=== PATIENT | female | born 1935 | race Caucasian/White ===

== ENCOUNTER → 2016-06-20 | Outpatient (CLI) | payer MEDICARE, BC ==
--- NOTE | 2016-06-20 12:54 | FL ---
EXAMINATION TYPE: FL barium swallow w video DATE OF EXAM: 06/20/2016 12:32 PM MODIFIED SWALLOW / DEGLUTITION STUDY CLINICAL HISTORY: Dysphagia. CVA per order. TECHNIQUE: Deglutition study is performed utilizing thin liquid barium, honey and nectar thick liqui d barium, barium thick applesauce, and barium coated cracker. A total of 1 minute 58 seconds of fluor oscopic time was utilized during procedure. COMPARISON: None. FINDINGS: The oral and pharyngeal phases show satisfactory initiation and propagation with all modali ties tested. Normal mastication is seen with solid modalities tested. There is single episode of shiloh ent aspiration with nectar thick liquid barium. This is not reproduced with subsequent attempts with this modality or thin liquid barium. No significant pharyngeal residue was appreciated. IMPRESSION: Single episode of silent aspiration with thin liquid barium. Please refer to speech ther apist notes for further details if necessary.
== END | disposition home or self-care (01) ==
LOC: RADFLMAIN 10:57
PROVIDERS: ATTEND Family Medicine
DX: I63.9 Cerebral infarction, unspecified (principal)
CPT/HCPCS: 74230

== ENCOUNTER → 2016-07-04 | Outpatient (CLI) | payer MEDICARE, BC ==
--- NOTE | 2016-07-04 12:07 | CT ---
EXAMINATION TYPE: CT chest wo con DATE OF EXAM: 07/04/2016 11:58 AM COMPARISON: NONE HISTORY: Wheezing, aspiration CT DLP: 113.2 mGycm High-resolution noncontrast CT of the chest was performed with the patient in the prone and supine po sitions. Lung and mediastinal window settings are submitted. The lungs appear to be well-aerated. I do not see evidence for fibrotic change. Mild basilar bronchi ectasis. Parenchymal scarring is seen adjacent to the left heart border and right lower lobe. 6.8 mm nodule right upper lobe medially seen best on image 13. Two Additional small 3 mm nodules left upper lobe also seen on image 13. No pleural effusion is identified. I do not see evidence for hilar or me diastinal mass or adenopathy. There is evidence of cardiomegaly with coronary artery calcifications. Cystic lesions of the spleen and liver. IMPRESSION: 1. Pulmonary nodularity consider follow-up study in 3-4 months. 2. 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
--- NOTE | 2016-07-07 11:14 | FL ---
Modified barium swallow. HISTORY: Dysphagia. Modified barium swallow was performed with the department of speech pathology. The patient was prese nted with various consistencies of barium. Mild transient penetration with thin liquid barium. No evidence for aspiration. Full report is to fol low from the department of speech pathology. Impression: Mild transient penetration.Please refer to speech therapist notes for further details if necessary.
== END | disposition home or self-care (01) ==
LOC: RADCTMAIN 11:35
PROVIDERS: ATTEND Internal Medicine
DX: J47.9 Bronchiectasis, uncomplicated (principal); J69.0 Pneumonitis due to inhalation of food and vomit
CPT/HCPCS: 71020; 71250; 74230; 99204

== ENCOUNTER → 2016-08-18 | Outpatient (CLI) | payer MEDICARE, BC ==
[2016-08-18 11:15] LABS: Calcium 9.7 mg/dL (8.4-10.2); Potassium 4.3 mmol/L (3.5-5.1)
== END ==
LOC: LABWHC1 10:21
PROVIDERS: ATTEND Specialist
DX: N18.3 Chronic kidney disease, stage 3 (moderate) (principal)
CPT/HCPCS: 36415; 80048

== ENCOUNTER → 2016-12-09 | Outpatient (CLI) | payer MEDICARE, BC ==
[2016-12-09 10:58] LABS: Cholesterol 128 mg/dL (<200); HDL Cholesterol 52 mg/dL (40-60); Triglycerides 93 mg/dL (<150)
== END | disposition home or self-care (01) ==
LOC: LABWHC1 09:57
PROVIDERS: ATTEND Physician Assistant Medical
DX: E78.5 Hyperlipidemia, unspecified (principal)
CPT/HCPCS: 36415; 80061

== ENCOUNTER → 2016-12-26 | Outpatient (CLI) | payer MEDICARE, BC ==
--- NOTE | 2016-12-26 14:24 | US ---
EXAMINATION TYPE: US kidneys/renal and bladder DATE OF EXAM: 12/26/2016 COMPARISON: NONE CLINICAL HISTORY: N18.3 Chronic kidney disease stage 3, GFR 30-59. EXAM MEASUREMENTS: Right Kidney: 8.5 x 4.1 x 4.5 cm Left Kidney: 8.8 x 4.9 x 4.2 cm Right Kidney: small cyst measuring 1.0 x 0.7 x 0.8 cm Left Kidney: somewhat lobular contour Bladder: wnl Bilateral Jets seen: Yes There is no evidence for hydronephrosis at this point in time. No nephrolithiasis is seen. No sonali s are identified. The urinary bladder is anechoic. Bilateral ureteral jets are seen. IMPRESSION: CYSTIC LESION IN THE RIGHT KIDNEY DOES NOT MEET THE REQUIREMENTS OF SIMPLE CYSTS. FURTHER IMAGING WIT H CT OR MR WOULD BE SUGGESTED.
== END | disposition home or self-care (01) ==
LOC: RADUSWWP 13:00
PROVIDERS: ATTEND Internal Medicine Nephrology
DX: Q61.9 Cystic kidney disease, unspecified (principal); I12.9 Hypertensive chronic kidney disease with stage 1 through stage 4 chronic kidney disease, or unspecified chronic kidney disease; N18.3 Chronic kidney disease, stage 3 (moderate)
CPT/HCPCS: 76770

== ENCOUNTER → 2017-07-04 | Outpatient (CLI) | payer MEDICARE, BC ==
[2017-07-04 10:12] LABS: Albumin 4.3 g/dL (3.5-5.0); Calcium 10.1 mg/dL (8.4-10.2); Total Bilirubin 1.2 mg/dL (0.2-1.3); Total Protein 7.2 g/dL (6.3-8.2)
[2017-07-04 10:26] LABS: Potassium 4.7 mmol/L (3.5-5.1)
== END | disposition home or self-care (01) ==
LOC: LABWHC1 09:14
PROVIDERS: ATTEND Internal Medicine Interventional Cardiology
DX: E78.2 Mixed hyperlipidemia (principal)
CPT/HCPCS: 36415; 80053; 80061

== ENCOUNTER → 2017-11-22 | Outpatient (CLI) | payer MEDICARE, BC ==
[2017-11-22 12:54] LABS: Calcium 10.4 mg/dL (8.4-10.2); Potassium 4.5 mmol/L (3.5-5.1)
[2017-11-22 14:34] LABS: Phosphorus 3.5 mg/dL (2.5-4.5)
== END | disposition home or self-care (01) ==
LOC: LABWHC1 12:06 → EDSTATUS 14:06
PROVIDERS: ATTEND Internal Medicine Nephrology
DX: E87.1 Hypo-osmolality and hyponatremia (principal); I12.9 Hypertensive chronic kidney disease with stage 1 through stage 4 chronic kidney disease, or unspecified chronic kidney disease; N18.3 Chronic kidney disease, stage 3 (moderate)
CPT/HCPCS: 36415; 80048; 84100

== ENCOUNTER → 2017-11-23 | Outpatient (CLI) | payer MEDICARE, BC ==
[2017-11-23 13:01] LABS: Basophils % (A) 1 %; Eosinophils # (A) 0.2 k/uL (0-0.7); Eosinophils % (A) 3 %; HCT 44.8 % (34.0-46.0); HGB 14.5 gm/dL (11.4-16.0); Lymphocytes # (A) 1.2 k/uL (1.0-4.8); Lymphocytes % (A) 26 %; MCH 30.4 pg (25.0-35.0); MCHC 32.5 g/dL (31.0-37.0); MCV 93.6 fL (80.0-100.0); Monocytes # (A) 0.5 k/uL (0-1.0); Monocytes % (A) 11 %; Neutrophils # (A) 2.7 k/uL (1.3-7.7); Neutrophils % (A) 57 %; Platelet Count 194 k/uL (150-450); RBC 4.79 m/uL (3.80-5.40); RDW 12.7 % (11.5-15.5); WBC 4.8 k/uL (3.8-10.6)
== END | disposition home or self-care (01) ==
LOC: LABWHC1 12:31
PROVIDERS: ATTEND Internal Medicine Nephrology
DX: E87.1 Hypo-osmolality and hyponatremia (principal); I12.9 Hypertensive chronic kidney disease with stage 1 through stage 4 chronic kidney disease, or unspecified chronic kidney disease; N18.3 Chronic kidney disease, stage 3 (moderate)
CPT/HCPCS: 36415; 83970; 85025; 85027

== ENCOUNTER 2018-03-22 19:11 | Emergency (ER) | payer MEDICARE, BC ==
[2018-03-22] MEDS ORDERED: ACETAMINOPHEN TAB 325 MG TAB PO STA (20:03)
--- NOTE | 2018-03-22 20:09 | ED ---
GI Bleed HPI - General Source: patient, family Mode of arrival: wheelchair Limitations: no limitations <Myrna Roper - Last Filed: 03/23/18 02:42> <Trisha Ambriz - Last Filed: 03/23/18 05:12> - General Chief complaint: GI Bleed Stated complaint: bloody stool, nausea Time Seen by Provider: 03/22/18 19:23 - History of Present Illness Initial comments: 89-year-old female patient presents to the emergency department today with multiple complaints. Patient states that she has been having elevated temperatures with T-max 100.2F at home over the last 2 days. Patient states that she did present to her primary care physician's office today for evaluation of the fevers and did end up having an episode of vomiting and diarrhea. Patient states his stool was mostly mucus and bright red blood. Patient does take Eliquis, the Physician Counselor Aide was concerned and sent her to the ED for further evaluation. Patient denies any cough, congestion, sore throat, or abdominal pain. States that she's been having normal bowel movements over the last couple days. States her first episode of vomiting was today. Patient states she is having some pain and discomfort to the left leg, she is unable to localize the pain due to history of stroke sided deficits. She denies any falls or injuries to the leg. Patient denies any recent rash, fever, chills, shortness breath, chest pain, abdominal pain, nausea, vomiting, diarrhea, constipation, back pain, numbness, tingling, dizziness, weakness, hematuria, dysuria, urinary urgency, urinary frequency, headache, visual changes , or any other complaints. (Myrna Roper) - Related Data Home Medications Medication Instructions Recorded Confirmed Albuterol Nebulized [Ventolin 2.5 mg INHALATION RT-Q6H PRN 05/03/16 03/22/18 Nebulized] Atorvastatin [Lipitor] 40 mg PO DAILY 05/03/16 03/22/18 Digoxin [Digitek] 125 mcg PO Q48H 05/03/16 03/22/18 Spironolactone [Aldactone] 12.5 mg PO Q48H 05/03/16 03/22/18 Apixaban [Eliquis] 2.5 mg PO BID 03/22/18 03/22/18 Carvedilol [Coreg] 3.125 mg PO BID 03/22/18 03/22/18 Ergocalciferol (Vitamin D2) 50,000 unit PO WE 03/22/18 03/22/18 [Vitamin D2] Multivit-Min/Iron/Folic/Lutein 1 tab PO DAILY 03/22/18 03/22/18 [Centrum Silver Women Tablet] Previous Rx's Medication Instructions Recorded Sulfamethoxazole/Trimethoprim 1 each PO BID #10 tablet 03/23/18 [Bactrim DS 800-160 mg] Allergies Allergy/AdvReac Type Severity Reaction Status Date / Time No Known Allergies Allergy Verified 03/22/18 20:20 Review of Systems ROS Other: All systems not noted in ROS Statement are negative. <Myrna Roper - Last Filed: 03/23/18 02:42> ROS Other: All systems not noted in ROS Statement are negative. <Trisha Ambriz - Last Filed: 03/23/18 05:12> ROS Statement: Those systems with pertinent positive or pertinent negative responses have been documented in the HPI. Past Medical History Past Medical History: Hypertension History of Any Multi-Drug Resistant Organisms: None Reported Additional Past Surgical History / Comment(s): breast augmentation Past Psychological History: No Psychological Hx Reported Smoking Status: Former smoker Past Alcohol Use History: None Reported Past Drug Use History: None Reported <Myrna Roper - Last Filed: 03/23/18 02:42> General Exam Limitations: no limitations <Myrna Roper - Last Filed: 03/23/18 02:42> Vital Signs 03/22/18 03/22/18 03/22/18 19:14 20:30 22:16 Temperature 98.4 F 99.2 F Pulse Rate 70 76 82 Respiratory 18 20 20 Rate Blood Pressure 136/67 125/75 132/56 O2 Sat by Pulse 96 100 99 Oximetry 03/22/18 23:41 Temperature 98.4 F Pulse Rate 68 Respiratory 20 Rate Blood Pressure 132/69 O2 Sat by Pulse 96 Oximetry Medical Decision Making - Lab Data Result diagrams: 03/22/18 20:20 03/22/18 20:20 - Radiology Data Radiology results: report reviewed, image reviewed <Myrna Roper - Last Filed: 03/23/18 02:42> - Lab Data Result diagrams: 03/22/18 20:20 03/22/18 20:20 <Trisha Ambriz - Last Filed: 03/23/18 05:12> - Medical Decision Making 82-year-old female patient presented to the emergency department today for evaluation of fever 2 days and one episode of bloody diarrhea. Physical examination is relatively unremarkable. Abdomen soft and nontender. Labs reviewed and did reveal mildly elevated white blood cell count at a little over 12,000. Urinalysis did show evidence for red blood cells and white blood cells. This was sent for culture. Patient's occult blood was negative for presence of blood. Patient vital signs remained stable while in the emergency department. Upon reevaluation she is feeling well, complains of no pain and leg at this time. She will be discharged with prescription for urinary tract infection. Patient has had loose stool over the last couple of days one episode she reports as bloody, alcohol was negative, this could reflect colitis. She is instructed to follow-up with the primary care physician for recheck in 1-2 days. She is instructed to return immediately for any new, worsening, or concerning symptoms patient verbalizes understanding and agrees with this plan. (Myrna Roper) I was available for consultation in the emergency department. The history and physical exam were done by the midlevel provider. I was consulted for this patient's care. I reviewed the case with the midlevel provider and based on their presentation of the patient, I agree with the assessment, medical decision making and plan of care as documented. (Trisha Ambriz) - Lab Data Lab Results 03/22/18 03/22/18 03/22/18 Range/Units 20:20 20:20 20:20 WBC 12.7 H (3.8-10.6) k/uL RBC 5.00 (3.80-5.40) m/uL Hgb 15.7 (11.4-16.0) gm/dL Hct 47.4 H (34.0-46.0) % MCV 94.8 (80.0-100.0) fL MCH 31.5 (25.0-35.0) pg MCHC 33.2 (31.0-37.0) g/dL RDW 12.7 (11.5-15.5) % Plt Count 248 (150-450) k/uL Neutrophils % 83 % Lymphocytes % 9 % Monocytes % 6 % Eosinophils % 1 % Basophils % 0 % Neutrophils # 10.5 H (1.3-7.7) k/uL Lymphocytes # 1.1 (1.0-4.8) k/uL Monocytes # 0.8 (0-1.0) k/uL Eosinophils # 0.1 (0-0.7) k/uL Basophils # 0.0 (0-0.2) k/uL PT (9.0-12.0) sec INR (<1.2) APTT (22.0-30.0) sec Sodium 138 (137-145) mmol/L Potassium 4.8 (3.5-5.1) mmol/L Chloride 100 (98-107) mmol/L Carbon Dioxide 25 (22-30) mmol/L Anion Gap 13 mmol/L BUN 28 H (7-17) mg/dL Creatinine 1.14 H (0.52-1.04) mg/dL Est GFR (CKD-EPI)AfAm 53 (>60 ml/min/1.73 sqM) Est GFR (CKD-EPI)NonAf 46 (>60 ml/min/1.73 sqM) Glucose 114 H (74-99) mg/dL Plasma Lactic Acid Oneil 1.3 (0.7-2.0) mmol/L Calcium 10.2 (8.4-10.2) mg/dL Total Bilirubin 1.7 H (0.2-1.3) mg/dL AST 34 (14-36) U/L ALT 29 (9-52) U/L Alkaline Phosphatase 75 (38-126) U/L Total Protein 7.9 (6.3-8.2) g/dL Albumin 4.5 (3.5-5.0) g/dL Urine Color Urine Appearance (Clear) Urine pH (5.0-8.0) Ur Specific [place] (1.001-1.035) Urine Protein (Negative) Urine Glucose (UA) (Negative) Urine Ketones (Negative) Urine Blood (Negative) Urine Nitrite (Negative) Urine Bilirubin (Negative) Urine Urobilinogen (<2.0) mg/dL Ur Leukocyte Esterase (Negative) Urine RBC (0-5) /hpf Urine WBC (0-5) /hpf Ur Squamous Epith Cells (0-4) /hpf Urine Bacteria (None) /hpf Hyaline Casts (0-2) /lpf Urine Mucus (None) /hpf Stool Occult Blood (Negative) 03/22/18 03/22/18 03/22/18 Range/Units 20:20 20:25 22:16 WBC (3.8-10.6) k/uL RBC (3.80-5.40) m/uL Hgb (11.4-16.0) gm/dL Hct (34.0-46.0) % MCV (80.0-100.0) fL MCH (25.0-35.0) pg MCHC (31.0-37.0) g/dL RDW (11.5-15.5) % Plt Count (150-450) k/uL Neutrophils % % Lymphocytes % % Monocytes % % Eosinophils % % Basophils % % Neutrophils # (1.3-7.7) k/uL Lymphocytes # (1.0-4.8) k/uL Monocytes # (0-1.0) k/uL Eosinophils # (0-0.7) k/uL Basophils # (0-0.2) k/uL PT 10.7 (9.0-12.0) sec INR 1.1 (<1.2) APTT 23.5 (22.0-30.0) sec Sodium (137-145) mmol/L Potassium (3.5-5.1) mmol/L Chloride (98-107) mmol/L Carbon Dioxide (22-30) mmol/L Anion Gap mmol/L BUN (7-17) mg/dL Creatinine (0.52-1.04) mg/dL Est GFR (CKD-EPI)AfAm (>60 ml/min/1.73 sqM) Est GFR (CKD-EPI)NonAf (>60 ml/min/1.73 sqM) Glucose (74-99) mg/dL Plasma Lactic Acid Oneil (0.7-2.0) mmol/L Calcium (8.4-10.2) mg/dL Total Bilirubin (0.2-1.3) mg/dL AST (14-36) U/L ALT (9-52) U/L Alkaline Phosphatase (38-126) U/L Total Protein (6.3-8.2) g/dL Albumin (3.5-5.0) g/dL Urine Color Yellow Urine Appearance Clear (Clear) Urine pH 5.5 (5.0-8.0) Ur Specific [place] 1.020 (1.001-1.035) Urine Protein Trace H (Negative) Urine Glucose (UA) Negative (Negative) Urine Ketones Negative (Negative) Urine Blood Moderate H (Negative) Urine Nitrite Negative (Negative) Urine Bilirubin Negative (Negative) Urine Urobilinogen <2.0 (<2.0) mg/dL Ur Leukocyte Esterase Large H (Negative) Urine RBC 22 H (0-5) /hpf Urine WBC 26 H (0-5) /hpf Ur Squamous Epith Cells 2 (0-4) /hpf Urine Bacteria Rare H (None) /hpf Hyaline Casts 4 H (0-2) /lpf Urine Mucus Occasional H (None) /hpf Stool Occult Blood Negative (Negative) - Radiology Data Two-view x-ray of the chest is obtained. Heart media's enema normal for age. Lungs are clear of infiltrate. There is no pleural effusion. Thoracic aorta shows mild atheromatous change. There are chest leads. Bony thorax is intact. Impression by Dr. Forde shows no active cardiopulmonary disease. Normal heart. No change. (Myrna Roper) Disposition Is patient prescribed a controlled substance at d/c from ED?: No Time of Disposition: 00:14 <Myrna Roper - Last Filed: 03/23/18 02:42> <Trisha Ambriz - Last Filed: 03/23/18 05:12> Clinical Impression: Urinary tract infection, Colitis Disposition: HOME SELF-CARE Condition: Good Instructions: Gastrointestinal Bleeding (ED), Urinary Tract Infection in Older Adults (ED) Additional Instructions: Complete antibiotic prescription and full. Follow-up with your primary care physician for recheck in 1-2 days. Return here immediately for any new, worsening, or concerning symptoms. Prescriptions: Sulfamethoxazole/Trimethoprim [Bactrim DS 800-160 mg] 1 each PO BID #10 tablet Referrals: Sarah Garcia III, MD [Primary Care Provider] - 1-2 days Addendum entered and electronically signed by Myrna Roper, RESOURCE PROGRAM TEACHER-BC, AGACNP -BC 03/23/18 04:09: EKG DOCUMENTATION: EKG obtained at 2038 shows atrial fibrillation with a ventricular rate of 75, QRS duration 74, QT 370, QTC 413. No evidence of ST elevation or Depression.
[2018-03-22] MEDS: SODIUM CHLORIDE 0.9% 500 ML 500 ML IV SCH ×2 (20:25→20:26)
[2018-03-22 20:34] VITALS: RESP 20
[2018-03-22 20:39] LABS: Basophils % (A) 0 %; Eosinophils # (A) 0.1 k/uL (0-0.7); Eosinophils % (A) 1 %; HCT 47.4 % (34.0-46.0); HGB 15.7 gm/dL (11.4-16.0); Lymphocytes # (A) 1.1 k/uL (1.0-4.8); Lymphocytes % (A) 9 %; MCH 31.5 pg (25.0-35.0); MCHC 33.2 g/dL (31.0-37.0); MCV 94.8 fL (80.0-100.0); Mean Platelet Volume 7.3; Monocytes # (A) 0.8 k/uL (0-1.0); Monocytes % (A) 6 %; Neutrophils # (A) 10.5 k/uL (1.3-7.7); Neutrophils % (A) 83 %; Platelet Count 248 k/uL (150-450); RDW 12.7 % (11.5-15.5); WBC 12.7 k/uL (3.8-10.6)
[2018-03-22 20:51] LABS: Albumin 4.5 g/dL (3.5-5.0); Calcium 10.2 mg/dL (8.4-10.2); Potassium 4.8 mmol/L (3.5-5.1); Total Bilirubin 1.7 mg/dL (0.2-1.3); Total Protein 7.9 g/dL (6.3-8.2)
--- NOTE | 2018-03-22 21:12 | XR ---
EXAMINATION TYPE: XR chest 2V DATE OF EXAM: 03/22/2018 COMPARISON: 07/04/2016 HISTORY: Fever and nausea TECHNIQUE: Frontal and lateral views of the chest are obtained. FINDINGS: The heart and mediastinum are normal for age. Lungs are clear of infiltrate. There is no p leural effusion. Thoracic aorta shows mild atheromatous change. There are chest leads. Bony thorax is intact. IMPRESSION: No active cardiopulmonary disease. Normal heart. No change.
[2018-03-22 21:14] LABS: INR 1.1 (<1.2); Partial Thromboplastin Time 23.5 sec (22.0-30.0); Prothrombin Time 10.7 sec (9.0-12.0)
[2018-03-22] MEDS ORDERED: APIXABAN 5 MG TAB PO STA (23:12)
[2018-03-22 23:14] LABS: Appearance,Urine Clear (Clear); Bacteria,Urine Rare /hpf; Bilirubin,Urine Negative (Negative); Blood,Urine Moderate (Negative); Color,Urine Yellow; Glucose,Urine (UA) Negative (Negative); Hyaline Casts,Urine 4 /lpf (0-2); Ketones,Urine Negative (Negative); Leukocyte Esterase,Urine Large (Negative); Mucus,Urine Occasional /hpf; Nitrite,Urine Negative (Negative); PH, Urine 5.5 (5.0-8.0); Protein,Urine Trace (Negative); RBC,Urine 22 /hpf (0-5); Squamous Epithelial Cell,Urine 2 /hpf (0-4); Urobilinogen,Urine <2.0 mg/dL (<2.0); WBC,Urine 26 /hpf (0-5)
[2018-03-22 23:42] VITALS: BP 132/69; PULSE 68; TEMP 98.4
[2018-03-23] MEDS ORDERED: SULFAMETH-TMP DS STARTER PACK 2 TAB BTL PO STA (00:12)
== END 2018-03-23 00:30 | disposition home or self-care (01) ==
LOC: EC 19:11
DX: K52.9 Noninfective gastroenteritis and colitis, unspecified (principal); N39.0 Urinary tract infection, site not specified; I10 Essential (primary) hypertension; Z79.01 Long term (current) use of anticoagulants; Z79.02 Long term (current) use of antithrombotics/antiplatelets; Z79.899 Other long term (current) drug therapy; Z87.891 Personal history of nicotine dependence
CPT/HCPCS: 36415; 71046; 80053; 81001; 82272; 83605; 85025; 85610; 85730; 87040; 87086; 93005; 96360; 99285

== ENCOUNTER → 2018-06-21 | Outpatient (CLI) | payer MEDICARE, BC ==
[2018-06-21 11:11] LABS: Basophils # (A) 0.1 k/uL (0-0.2); Basophils % (A) 1 %; Eosinophils # (A) 0.3 k/uL (0-0.7); Eosinophils % (A) 4 %; HCT 48.5 % (34.0-46.0); HGB 15.3 gm/dL (11.4-16.0); Lymphocytes # (A) 1.4 k/uL (1.0-4.8); Lymphocytes % (A) 22 %; MCH 30.5 pg (25.0-35.0); MCHC 31.5 g/dL (31.0-37.0); MCV 96.8 fL (80.0-100.0); Mean Platelet Volume 6.1; Monocytes # (A) 0.5 k/uL (0-1.0); Monocytes % (A) 8 %; Neutrophils # (A) 3.8 k/uL (1.3-7.7); Neutrophils % (A) 62 %; Platelet Count 254 k/uL (150-450); RBC 5.01 m/uL (3.80-5.40); RDW 12.6 % (11.5-15.5); WBC 6.1 k/uL (3.8-10.6)
[2018-06-21 17:49] LABS: Albumin 4.5 g/dL (3.80-4.90); Albumin/Globulin Ratio 1.88 (1.20-2.10); Anion Gap 10.2 mmol/L (4.00-12.00); Carbon Dioxide 29.8 mmol/L (21.6-31.8); Globulin 2.4 g/dL (1.6-3.3); Total Protein 6.9 g/dL (6.2-8.2)
== END | disposition home or self-care (01) ==
LOC: LABWHC1 10:30
PROVIDERS: ATTEND Internal Medicine Interventional Cardiology
DX: Z00.01 Encounter for general adult medical examination with abnormal findings (principal); E78.2 Mixed hyperlipidemia; I69.354 Hemiplegia and hemiparesis following cerebral infarction affecting left non-dominant side; I10 Essential (primary) hypertension; D72.829 Elevated white blood cell count, unspecified; I48.91 Unspecified atrial fibrillation
CPT/HCPCS: 36415; 80053; 80061; 84443; 85025

== ENCOUNTER → 2019-01-08 | Outpatient (CLI) | payer MEDICARE, BC ==
[2019-01-08 19:43] LABS: LDL Cholesterol,Calculated 57.2 mg/dL (0.0-131.0); VLDL Calculation 21.8 mg/dL (5.00-40.00)
[2019-01-08 19:44] LABS: African American GFR (CKD) 49.1 (60.0-200.0); Albumin 4.4 g/dL (3.80-4.90); Anion Gap 8.1 mmol/L (4.00-12.00); BUN/Creat Ratio 21.67 Ratio (12.00-20.00); Calcium 10.5 mg/dL (8.7-10.3); Carbon Dioxide 30.9 mmol/L (21.6-31.8); Globulin 2.2 g/dL (1.6-3.3); Potassium 5.2 mmol/L (3.5-5.5); Total Bilirubin 1.1 mg/dL (0.2-1.2); Total Protein 6.6 g/dL (6.2-8.2)
== END | disposition home or self-care (01) ==
LOC: LABWHC1 11:53
PROVIDERS: ATTEND Internal Medicine Interventional Cardiology
DX: E78.2 Mixed hyperlipidemia (principal)
CPT/HCPCS: 36415; 80053; 80061

== ENCOUNTER → 2019-01-21 | Outpatient (CLI) | payer MEDICARE, BC ==
--- NOTE | 2019-01-22 08:18 | USB ---
Reason for exam: clinical finding. History: Patient history of other cancer. Family history of breast cancer in daughter at age 58, breast cancer in daughter at age 47, and breast cancer in sister at age 40. Implants in both breasts. Indicated problem(s): lump or thickening in the left breast. Physical Findings: Nurse Summary: 2cm firm, fixed lump left breast 11 o'clock, left sided paralysis, history of stroke 2 years ago (nurse mj). US Breast BILAT Right complete breast ultrasound includes all four quadrants, the retroareolar region and axilla. Finding demonstrates no cystic or solid lesion seen. Left complete breast ultrasound includes all four quadrants, the retroareolar region and axilla. Finding demonstrates a 6 x 2 x 4mm oval, cystic, benign appearing lesion at 8 o'clock and a 24 x 11 x 22mm irregular, spiculated, solid, hypoechoic, vascular lesion at 10 o'clock BB. No axillary CAD. Patient declines mammogram. Left biopsy recommended. These results were verbally communicated with the patient and result sheet given to the patient on 01/21/19. ASSESSMENT: Highly suggestive of malignancy, BI-RAD 5 RECOMMENDATION: Surgical consultation and ultrasound core biopsy of the left breast. Called Dr. Garcia with mammographic findings and has scheduled an appointment for the patient for 02/13/19 at 1:[address] Estrada. Biopsy scheduled for 02/08/19 at 8:00. PRELIMINARY REPORT CALLED AND FAXED TO DR. ESTRADA ON 01/22/19.
== END | disposition home or self-care (01) ==
LOC: RADUSWWP 14:25
PROVIDERS: ATTEND Family Medicine
DX: N63.0 Unspecified lump in unspecified breast (principal); Z80.3 Family history of malignant neoplasm of breast

== ENCOUNTER → 2019-02-08 | Day surgery (SDC) | payer MEDICARE, BC ==
[2019-02-08 07:39] VITALS: RESP 16; BMI 26.2
--- NOTE | 2019-02-08 09:08 | USB ---
EXAMINATION TYPE: US biopsy breast VAD LT, MG diagnostic mammo LT wo CAD DATE OF EXAM: 02/08/2019 CLINICAL HISTORY: R92.8 ABN JASPREET. TECHNIQUE: Ultrasound guided core biopsy of left breast. COMPARISON: Bilateral ultrasound of the breasts dated 01/21/2019 FINDINGS: The procedure of ultrasound guided core biopsy was explained to the patient. Benefits, alternatives, and risks were discussed. An informed consent was then obtained. Preprocedural timeout was performed. The patient was counseled with recurrence to increased risk of involvement of the hematoma given their recent blood thinner use, although the patient did stop per protocol. The patient was placed in supine positioning for imaging and for the procedure. The overlying skin was prepped and draped in usual sterile fashion. 10 cc of 1% lidocaine without epinephrine was used as anesthetic into the skin and subcutaneous tissue as well as 10 cc of lidocaine with epinephrine within the deep subcutaneous soft tissues leading up to the 2.4 x 1.1 x 2.2 cm palpable, irregular, hypoechoic highly suspicious mass with shadowing and internal vascularity at the 10:00 position in the left breast noted on the screening exam and demarcated at the 9:00 position on today's exam. Under ultrasound guidance, a 12-gauge vacuum assisted biopsy gun device was used to obtain 6 core samples. Following this, a ribbon-shaped biopsy marker was left in the mass. Postprocedural mammogram in CC view, implant displaced, was only able to be obtained given the patient's left-sided paresis/weakness. The patient tolerated the procedure well without any immediate complication. The patient was kept in the radiology department for short stay after the procedure and then discharged home in stable condition. IMPRESSION: Successful, uncomplicated ultrasound guided core biopsy of a highly suspicious 2.4 cm mass at the 9 to 10:00 position in the left breast, full pathology results to follow. This would be amenable to ultrasound-guided needle localization pending biopsy results as the patient is unable to be positioned well for nanograms. Pathology Results: Malignant LEFT BREAST, ULTRASOUND GUIDED CORE BIOPSY: Invasive ductal carcinoma, at least moderately differentiated. Limited sample. See Surgical Pathology Cancer Case Summary and Comment. Recommendation Surgical consult of the left breast. (Definitive surgical/medical management, this is amenable to ultrasound guided needle localization) [id number]
[2019-02-08 09:17] VITALS: BP 150/91; PULSE 61; TEMP 98.1
== END | disposition home or self-care (01) ==
LOC: RADUSWWP 07:02
PROVIDERS: ATTEND Student in an Organized Health Care Education/Training Program
DX: C50.912 Malignant neoplasm of unspecified site of left female breast (principal)
CPT/HCPCS: 88305; 88342; 88341; 77065; 19083; A4648; J2001

== ENCOUNTER → 2019-02-19 | Outpatient (CLI) | payer MEDICARE, BC ==
--- NOTE | 2019-02-20 07:59 | MM ---
Reason for exam: additional evaluation requested from abnormal screening. Last mammogram was performed less than 1 month ago. History: Patient is postmenopausal, has history of breast cancer at age 83, and history of other cancer. Family history of breast cancer in daughter at age 58, breast cancer in daughter at age 47, and breast cancer in sister at age 40. Malignant US biopsy breast VAD LT of the left breast, February 08, 2019. Implants in both breasts. Physical Findings: Nurse Summary: 1.5-2cm nodule in the left breast at 10 o'clock (nurse TM). MG 3D Diag Mammo Imp W/Cad RENATO Bilateral CC, MLO, and ID view(s) were taken. Prior study comparison: February 08, 2019, left breast MG diagnostic mammo LT wo CAD. January 21, 2019, bilateral US breast BILAT. The breast tissue is heterogeneously dense. This may lower the sensitivity of mammography. Finding: There are fine pleomorphic, grouped/clustered calcifications in the posterior position of both breasts. Bilateral breast implants. Suboptimal due to underlying stroke. These results were verbally communicated with the patient and result sheet given to the patient on 02/19/19. ASSESSMENT: Known biopsy proven malignancy, BI-RAD 6 Benign, BI-RAD 2 finding in the right breast. Known biopsy proven malignancy, BI-RAD 6 of the left breast. RECOMMENDATION: Surgical consultation of the left breast. Called with mammographic findings and has scheduled an appointment for the patient for 02/28/[address] Estrada. Lumpectomy already set up with Dr. Estrada. PRELIMINARY REPORT CALLED AND FAXED TO DR. ESTRADA ON 02/20/19.
== END | disposition home or self-care (01) ==
LOC: RADMAMWWP 14:44
PROVIDERS: ATTEND Student in an Organized Health Care Education/Training Program
DX: Z08 Encounter for follow-up examination after completed treatment for malignant neoplasm (principal); Z85.3 Personal history of malignant neoplasm of breast
CPT/HCPCS: 77066; G0279; 77062

== ENCOUNTER → 2020-03-25 | Outpatient (CLI) | payer MEDICARE, BC ==
--- NOTE | 2020-03-30 14:52 | MM ---
Reason for exam: additional evaluation requested from prior study. Last mammogram was performed 1 year and 1 month ago. History: Patient is postmenopausal, has history of breast cancer at age 83, and history of other cancer. Family history of breast cancer in daughter at age 58, breast cancer in daughter at age 47, and breast cancer in sister at age 40. Malignant US biopsy breast VAD LT of the left breast, February 08, 2019. Implants in both breasts, 1979. Lumpectomy of the left breast. Physical Findings: Nurse did not find any significant physical abnormalities on exam. MG 3D Diag Mammo Imp W/Cad RENATO Bilateral CC, MLO, and ID view(s) were taken. Prior study comparison: February 19, 2019, bilateral MG 3d diag mammo imp w/cad RENATO. February 08, 2019, left breast MG diagnostic mammo LT wo CAD. The breast tissue is heterogeneously dense. This may lower the sensitivity of mammography. Bilateral implants. Benign appearing bilateral vascular calcifications. These results were verbally communicated with the patient and result sheet given to the patient on 03/25/20. ASSESSMENT: Benign, BI-RAD 2 RECOMMENDATION: Follow-up diagnostic mammogram of both breasts in 1 year.
== END | disposition home or self-care (01) ==
LOC: RADMAMWWP 13:48
PROVIDERS: ATTEND Student in an Organized Health Care Education/Training Program
DX: C50.912 Malignant neoplasm of unspecified site of left female breast (principal)
CPT/HCPCS: 77066; G0279; 77062

== ENCOUNTER → 2021-04-06 | Outpatient (CLI) | payer MEDICARE, BC ==
--- NOTE | 2021-04-06 14:11 | XR ---
EXAMINATION TYPE: XR chest 2V DATE OF EXAM: 04/06/2021 COMPARISON: X-ray 03/22/2018, CT chest 07/04/2016 HISTORY: C50.212 TECHNIQUE: Frontal and lateral views of the chest are obtained. FINDINGS: There is no pleural effusion or pneumothorax seen. Abnormal attenuation is present within the lingula. The cardiac silhouette size is within normal limits. Breast prostheses noted bilateral ly The osseous structures are intact. IMPRESSION: Findings within the lingula may be related to prominent epicardial fat pad, difficult to exclude atelectasis versus pneumonia, follow up recommended
--- NOTE | 2021-04-06 14:38 | MM ---
Reason for exam: additional evaluation requested from prior study. Last mammogram was performed 1 year ago. History: Patient is postmenopausal, has history of breast cancer at age 83, and history of other cancer. Family history of breast cancer in daughter at age 58, breast cancer in daughter at age 47, and breast cancer in sister at age 40. Malignant US biopsy breast VAD LT of the left breast, February 08, 2019. Implants in both breasts, 1979. Lumpectomy of the left breast. Took hormonal contraceptives for 6 months. Physical Findings: Nurse did not find any significant physical abnormalities on exam. MG 3D Diag Mammo Imp W/Cad RENATO Bilateral CC and MLO view(s) were taken. Prior study comparison: March 25, 2020, bilateral MG 3d diag mammo imp w/cad RENATO. February 19, 2019, bilateral MG 3d diag mammo imp w/cad RENATO. February 08, 2019, left breast MG diagnostic mammo LT wo CAD. There are scattered fibroglandular densities. Finding: There are typically benign round, grouped/clustered calcifications. Asymmetric breast tissue greater in the right breast. These results were verbally communicated with the patient and result sheet given to the patient on 04/06/21. ASSESSMENT: Probably benign, BI-RAD 3 RECOMMENDATION: Follow-up diagnostic mammogram of the left breast in 6 months.
--- NOTE | 2021-04-07 13:08 | BD ---
EXAMINATION TYPE: Axial Bone Density DATE OF EXAM: 04/06/2021 COMPARISON: NONE CLINICAL HISTORY: Height: 63.5 IN Weight: 164 LBS RISK FACTORS HISTORY OF: Active: LIMITED Diet low in dairy products/other sources of calcium: YES Postmenopausal woman: AGE 47 Lost more than 2 inches in height since high school: YES 3.5" MEDICATIONS: Additional Medications: CALCIUM, VIT D, ELIQUIS, CARVEDILOL, ATORVASTATIN, SPIROLACTONE, DIGOXIN, Additional History: BREAST CANCER EXAM MEASUREMENTS: Bone mineral densitometry was performed using the [employer] System. Bone mineral density as measured about the Lumbar spine is: ----- L1-L4(G/cm2): 1.326 T Score Values are as follows: ----- L2: 0.4 ----- L3: 2.5 ----- L4: 1.5 ----- L1-L4: 1.2 Bone mineral density BASELINE Bone mineral density about the R hip (g/cm2): 0.842 Bone mineral density about the L hip (g/cm2): 0.689 T Score values are as follows: -----R Neck: -1.4 -----L Neck: -2.5 -----R Total: -1.3 -----L Total: -1.7 Bone mineral density BASELINE IMPRESSION: Osteopenia (T Score between -2.5 and -1). There is slightly increased risk of fracture and the patient may be considered for treatment. Re-Screen 2-5 years. NOTE: T-SCORE=SD OF THE YOUNG ADULT MEAN.
== END | disposition home or self-care (01) ==
LOC: RADBDWWP 11:41
PROVIDERS: ATTEND Internal Medicine Medical Oncology
DX: R92.1 Mammographic calcification found on diagnostic imaging of breast (principal); Z85.3 Personal history of malignant neoplasm of breast; M85.89 Other specified disorders of bone density and structure, multiple sites; Z78.0 Asymptomatic menopausal state
CPT/HCPCS: 71046; 77080; 77066; G0279; 77062

== ENCOUNTER → 2021-09-20 | Outpatient (CLI) | payer MEDICARE, BC ==
[2021-09-20 18:11] LABS: ALT 22 U/L (8-44); AST 27 U/L (13-35); African American GFR (CKD) 61.1 (60.0-200.0); Albumin 4.4 g/dL (3.8-4.9); Albumin/Globulin Ratio 1.65 (1.60-3.17); Alkaline Phosphatase 95 U/L (41-126); BUN/Creat Ratio 10.06 Ratio (12.00-20.00); Blood Urea Nitrogen 9.9 mg/dL (9.0-27.0); Calcium 10.2 mg/dL (8.7-10.3); Chloride 101 mmol/L (96-109); Chol/HDL Ratio 2.45 Ratio; Globulin 2.7 g/dL (1.6-3.3); Glucose 93 mg/dL (70-110); Non-African American GFR(CKD) 52.7 (60.0-200.0); Potassium 5.5 mmol/L (3.5-5.5); Sodium 138 mmol/L (135-145); VLDL Calculation 16.84 mg/dL (5.00-40.00)
== END | disposition home or self-care (01) ==
LOC: LABWHC1 10:48
PROVIDERS: ATTEND Internal Medicine Interventional Cardiology
DX: E78.2 Mixed hyperlipidemia (principal)
CPT/HCPCS: 36415; 80053; 80061

== ENCOUNTER → 2021-10-11 | Outpatient (CLI) | payer MEDICARE, BC ==
--- NOTE | 2021-10-11 13:33 | MM ---
Reason for exam: additional evaluation requested from prior study. Last mammogram was performed 6 months ago. History: Patient is postmenopausal, has history of other cancer at age 86, and has history of breast cancer at age 83. Family history of breast cancer in daughter at age 58, breast cancer in daughter at age 47, and breast cancer in sister at age 40. Malignant US biopsy breast VAD LT of the left breast, February 08, 2019. Implants in both breasts, 1979. Lumpectomy of the left breast. Took hormonal contraceptives for 6 months. Physical Findings: A clinical breast exam by your physician is recommended on an annual basis and results should be correlated with mammographic findings. MG 3D Diag Mammo Imp W/Cad LT CC and MLO view(s) were taken of the left breast. Prior study comparison: April 06, 2021, bilateral MG 3d diag mammo imp w/cad RENATO. March 25, 2020, bilateral MG 3d diag mammo imp w/cad RENATO. February 19, 2019, bilateral MG 3d diag mammo imp w/cad RENATO. There are scattered fibroglandular densities. Suboptimal study due to previous stroke on the left side. There are benign appearing vascular calcifications in the left breast. There is stable grouped punctate calcifications in the lower inner quadrant. Left subglandular implant redemonstrated. Results were given to the patient verbally at the time of the exam. ASSESSMENT: Benign, BI-RAD 2 RECOMMENDATION: Routine screening mammogram of both breasts in 6 months.
== END | disposition home or self-care (01) ==
LOC: RADMAMWWP 12:30
PROVIDERS: ATTEND Internal Medicine Medical Oncology
DX: R92.1 Mammographic calcification found on diagnostic imaging of breast (principal); Z78.0 Asymptomatic menopausal state; Z85.3 Personal history of malignant neoplasm of breast; Z80.3 Family history of malignant neoplasm of breast
CPT/HCPCS: 77065; G0279; 77061

== ENCOUNTER → 2021-10-11 | Outpatient (CLI) | payer MEDICARE, BC ==
--- NOTE | 2021-10-11 12:47 | XR ---
EXAMINATION TYPE: XR chest 2V DATE OF EXAM: 10/11/2021 COMPARISON: 04/06/2021 TECHNIQUE: PA and lateral views submitted. HISTORY: History of malignancy FINDINGS: Heart is enlarged and there is atherosclerotic change aorta with left lower lobe consolidation. Biapi polo pleural thickening. No interstitial edema or pneumothorax. Hypertrophic changes of the spine. IMPRESSION: 1. Cardiomegaly with left lower lobe consolidation similar to the prior exam.
== END | disposition home or self-care (01) ==
LOC: RADXRMAIN 12:04
PROVIDERS: ATTEND Internal Medicine Medical Oncology
DX: I51.7 Cardiomegaly (principal); Z85.9 Personal history of malignant neoplasm, unspecified
CPT/HCPCS: 71046

== ENCOUNTER → 2021-12-15 | Outpatient (CLI) | payer MEDICARE, BC | END | disposition home or self-care (01) | LOC: LABWHC1 10:37 | PROVIDERS: ATTEND Physician Assistant | DX: C50.212 Malignant neoplasm of upper-inner quadrant of left female breast (principal) | CPT/HCPCS: 36415; 82310; 83970 ==

== ENCOUNTER → 2022-04-19 | Outpatient (CLI) | payer MEDICARE, BC ==
--- NOTE | 2022-04-19 11:55 | MM ---
Reason for Exam: Follow-up at short interval from prior study. Last screening mammogram was performed 12 month(s) ago. Patient History: Menarche at age 18. First Full-Term at age 24. Postmenopausal. Other cancer, age 86. Breast cancer, age 83. Hormonal Contraceptives for 6 months. Lumpectomy on the Left side. 02/08/2019, Malignant Core Biopsy on the left side. 1980, Bilateral Implants. Sister had breast cancer, age 40. Daughter had breast cancer, age 58. Daughter had breast cancer, age 47. Tissue Density: There are scattered fibroglandular densities. Findings: Suboptimal study due to previous stroke in the left side. Benign-appearing vesicles occasional left breast. Stable grouped punctate calcifications in the lower inner quadrant. Bilateral breast implants. No new suspicious masses within either breast. Overall Assessment: Benign, BI-RAD 2 Management: Screening Mammogram of both breasts in 1 year. A clinical breast exam by your physician is recommended on an annual basis and results should be correlated with mammographic findings. This exam should not preclude additional follow-up of suspicious palpable abnormalities. Results were given to the patient verbally at the time of exam. Electronically signed and approved by: Carlitos Kyle D.O.
== END | disposition home or self-care (01) ==
LOC: RADMAMWWP 11:06
PROVIDERS: ATTEND Internal Medicine Medical Oncology
DX: C50.212 Malignant neoplasm of upper-inner quadrant of left female breast (principal); Z78.0 Asymptomatic menopausal state; Z80.3 Family history of malignant neoplasm of breast
CPT/HCPCS: 77066; G0279; 77062

== ENCOUNTER → 2023-04-06 | Outpatient (CLI) | payer MEDICARE, BC ==
--- NOTE | 2023-04-06 13:55 | MM ---
Reason for Exam: Clinical finding. Last screening mammogram was performed 12 month(s) ago. Patient History: Menarche at age 18. First Full-Term at age 24. Postmenopausal. Other cancer, age 86. Breast cancer, age 83. Hormonal Contraceptives for 6 months. Lumpectomy on the Left side. 02/08/2019, Malignant Core Biopsy on the left side. 1980, Bilateral Implants. Sister had breast cancer, age 40. Daughter had breast cancer, age 58. Daughter had breast cancer, age 47. Prior Study Comparison: 02/08/2019 Left Diagnostic Mammogram, [facility]. 02/19/2019 Bilateral Diagnostic Mammogram, [facility]. 03/25/2020 Bilateral Diagnostic Mammogram, [facility]. 04/06/2021 Bilateral Diagnostic Mammogram, [facility]. 10/11/2021 Left Diagnostic Mammogram, [facility]. 04/19/2022 Bilateral MG 3D diag mammo imp w/cad RENATO, [facility]. Tissue Density: There are scattered fibroglandular densities. Findings: Stable left breast calcifications and probable peripherally calcified cyst. Breast implants appear intact. No new suspicious masses, calcifications or distortions. Overall Assessment: Benign, BI-RAD 2 Management: Screening Mammogram of both breasts in 1 year. Results were given to the patient verbally at the time of exam. Patient should continue monthly self-breast exams. A clinical breast exam by your physician is recommended on an annual basis. This exam should not preclude additional follow-up of suspicious palpable abnormalities. Note on Josephine scores and lifetime risk: 1. A Josephine score greater than 3% is considered moderate risk. If this is the case, consider specialist referral to assess eligibility for a risk reducing agent. 2. If overall lifetime risk for the development of breast cancer is 20% or higher, the patient may qualify for future screening with alternating mammogram and breast MRI. Electronically signed and approved by: Clay Giron DO
== END | disposition home or self-care (01) ==
LOC: RADMAMWWP 13:02
PROVIDERS: ATTEND Internal Medicine Medical Oncology
DX: C50.212 Malignant neoplasm of upper-inner quadrant of left female breast (principal); R92.323 Mammographic fibroglandular density, bilateral breasts; Z78.0 Asymptomatic menopausal state; Z80.3 Family history of malignant neoplasm of breast
CPT/HCPCS: 77066; G0279; 77062

== ENCOUNTER → 2023-05-05 | Outpatient (CLI) | payer MEDICARE, BC ==
--- NOTE | 2023-05-08 12:24 | BD ---
EXAMINATION TYPE: Axial Bone Density DATE OF EXAM: 05/05/2023 CLINICAL HISTORY: 88 years old Female. ICD-10 CODE: BR CA C50.212 Height: 63 Weight: 157 FRAX RISK QUESTIONS: Secondary Osteoporosis: yes 3. Menopause before 45: yes RISK FACTORS HISTORY OF: Family History of Osteoporosis: no Active: no Diet low in dairy products/other sources of calcium: no Postmenopausal woman: yes Lost more than 2 inches in height since high school: yes,68 Frequent falls: no MEDICATIONS: Additional Medications: yes heart meds Additional History: yes breast cancer 2019 EXAM MEASUREMENTS: Bone mineral densitometry was performed using the [employer] System. Bone mineral density as measured about the Lumbar spine is: ----- L1-L4(G/cm2): 1.284 T Score Values are as follows: ----- L1: 0.0 ----- L2: 0.0 ----- L3: 2.1 ----- L4: 1.0 ----- L1-L4: 0.9 Z Score Values are as follows: ----- L1: 1.7 ----- L2: 1.7 ----- L3: 3.8 ----- L4: 2.7 ----- L1-L4: 2.6 Bone mineral density has: Decreased -3.2% since study of: 04.06.2021 Bone mineral density about the R hip (g/cm2): 0.853 Bone mineral density about the L hip (g/cm2): 0.923 T Score values are as follows: -----R Neck: -1.3 -----L Neck: -0.9 -----R Total: -1.2 -----L Total: -0.7 Z Score values are as follows: -----R Neck: 1.0 -----L Neck: 1.4 -----R Total: 1.0 -----L Total: 1.5 Bone mineral density has: Increased 8.0% since study of: 04.06.2021 FRAX%s: The graph provided illustrates a 12.2% chance for a major osteoporotic fx and a 3.2% chance f or the hips probability for fx in 10 years time. IMPRESSION: Osteopenia (T Score between -2.5 and -1). There is slightly increased risk of fracture and the patient may be considered for treatment. Re-Screen 2-5 years. NOTE: T-SCORE=SD OF THE YOUNG ADULT MEAN.
== END | disposition home or self-care (01) ==
LOC: RADBDWWP 14:53
PROVIDERS: ATTEND Internal Medicine Medical Oncology
DX: C50.212 Malignant neoplasm of upper-inner quadrant of left female breast (principal); M85.851 Other specified disorders of bone density and structure, right thigh; Z78.0 Asymptomatic menopausal state
CPT/HCPCS: 77080

== ENCOUNTER → 2023-06-29 | Outpatient (CLI) | payer MEDICARE, BC ==
--- NOTE | 2023-06-29 12:43 | XR ---
EXAMINATION TYPE: XR chest 2V DATE OF EXAM: 06/29/2023 12:33 PM CLINICAL INDICATION:Female, 88 years old with history of R05.9 COUGH; COMPARISON: Chest radiographs from 10/11/2021 TECHNIQUE: XR chest 2V Frontal and lateral views of the chest. FINDINGS: Lungs/Pleura: There is no evidence of pleural effusion, focal consolidation, or pneumothorax. Pulmonary vascularity: Unremarkable. Heart/mediastinum: Cardiomediastinal silhouette is unremarkable. Musculoskeletal: No acute osseous pathology. Other findings: Bilateral breast implants. IMPRESSION: No acute cardiopulmonary disease/process.
== END | disposition home or self-care (01) ==
LOC: RADXRMAIN 12:07
PROVIDERS: ATTEND Nurse Practitioner Family
DX: J45.20 Mild intermittent asthma, uncomplicated (principal); R05.9 Cough, unspecified; R09.81 Nasal congestion; Z98.82 Breast implant status
CPT/HCPCS: 71046

== ENCOUNTER 2023-09-26 08:38 | Inpatient (IN) | payer MEDICARE, BC ==
[2023-09-26 09:21] LABS: Basophils % (A) 0 %; Eosinophils % (A) 0 %; HCT 45.9 % (34.0-46.0); HGB 14.9 gm/dL (11.4-16.0); Lymphocytes # (A) 0.6 k/uL (1.0-4.8); Lymphocytes % (A) 7 %; MCHC 32.4 g/dL (31.0-37.0); MCV 98.6 fL (80.0-100.0); Mean Platelet Volume 7.5; Monocytes # (A) 0.3 k/uL (0-1.0); Monocytes % (A) 3 %; Neutrophils # (A) 6.5 k/uL (1.3-7.7); Neutrophils % (A) 88 %; Platelet Count 202 k/uL (150-450); RBC 4.65 m/uL (3.80-5.40); RDW 12.9 % (11.5-15.5); WBC 7.4 k/uL (3.8-10.6)
[2023-09-26 09:29] LABS: INR 1.1 (<1.2); Partial Thromboplastin Time 25.4 sec (22.0-30.0); Prothrombin Time 11.5 sec (10.0-12.5)
[2023-09-26 09:38] LABS: ALT 28 U/L (4-34); AST 36 U/L (14-36); African American GFR (CKD) 45 (>60 ml/min/1.73 sqM); Albumin 4.5 g/dL (3.5-5.0); Alkaline Phosphatase 85 U/L (38-126); Anion Gap 5 mmol/L; Blood Urea Nitrogen 20 mg/dL (7-17); Calcium 9.9 mg/dL (8.4-10.2); Carbon Dioxide 32 mmol/L (22-30); Chloride 99 mmol/L (98-107); Glucose 117 mg/dL (74-99); Magnesium 1.9 mg/dL (1.6-2.3); Non-African American GFR(CKD) 39 (>60 ml/min/1.73 sqM); Potassium 4.8 mmol/L (3.5-5.1); Sodium 136 mmol/L (137-145); Total Bilirubin 1.5 mg/dL (0.2-1.3); Total Protein 7.5 g/dL (6.3-8.2)
--- NOTE | 2023-09-26 10:05 | XR ---
EXAMINATION TYPE: XR chest 2V DATE OF EXAM: 09/26/2023 9:50 AM CLINICAL INDICATION:Female, 88 years old with history of difficulty breathing; [facility] COMPARISON: Chest radiographs from June 29, 2023 TECHNIQUE: XR chest 2V Frontal and lateral views of the chest. FINDINGS: Lungs/Pleura: Focal airspace consolidation is suspected in the left base. No pleural effusion or pneu mothorax. Pulmonary vascularity: Unremarkable. Heart/mediastinum: The heart is mildly enlarged. Musculoskeletal: No acute osseous pathology. Other findings: None Lines/Tubes: IMPRESSION: Focal airspace consolidation is suspected in the left base. No pleural effusion or pneumothorax
--- NOTE | 2023-09-26 12:52 | ED ---
General Adult HPI - General Chief complaint: Shortness of Breath Stated complaint: cough Time Seen by Provider: 09/26/23 12:25 Source: patient, family, RN notes reviewed Mode of arrival: wheelchair Limitations: no limitations - History of Present Illness Initial comments: This is an 88-year-old female who presents to the emergency department and was in the waiting room for 4+ hours prior to getting a room. Patient comes back complaining of cough and sputum production for the last 3 to 4 days. Patient states last night she was short of breath but she currently is not short of breath. Patient states at no time did she have any chest pain. Patient denies any palpitations. Patient denies any fever though she states she is cold but she is always cold. Patient does have a past medical history significant for stroke with left-sided paralysis. Patient denies any pain anywhere currently. Patient's only complaint now is that she is consistently coughing. - Related Data Home Medications Medication Instructions Recorded Confirmed Albuterol Nebulized [Ventolin 2.5 mg INHALATION RT-Q6H PRN 05/03/16 02/08/19 Nebulized] Atorvastatin [Lipitor] 40 mg PO DAILY 05/03/16 02/08/19 Digoxin [Digitek] 125 mcg PO Q48H 05/03/16 02/08/19 Spironolactone [Aldactone] 12.5 mg PO Q48H 05/03/16 02/08/19 Apixaban [Eliquis] 2.5 mg PO BID 03/22/18 02/08/19 Ergocalciferol (Vitamin D2) 50,000 unit PO WE 03/22/18 02/08/19 [Vitamin D2] Multivit-Min/Iron/Folic/Lutein 1 tab PO DAILY 03/22/18 02/08/19 [Centrum Silver Women Tablet] carvediloL [Coreg] 3.125 mg PO BID 03/22/18 02/08/19 Allergies Allergy/AdvReac Type Severity Reaction Status Date / Time No Known Allergies Allergy Verified 02/08/19 07:21 Review of Systems ROS Statement: Those systems with pertinent positive or pertinent negative responses have been documented in the HPI. ROS Other: All systems not noted in ROS Statement are negative. Past Medical History Past Medical History: Atrial Fibrillation, CVA/TIA, Hypertension Additional Past Medical History / Comment(s): CVA 2016-left side affected History of Any Multi-Drug Resistant Organisms: None Reported Additional Past Surgical History / Comment(s): breast implant augmentation-1976 Past Anesthesia/Blood Transfusion Reactions: No Reported Reaction Past Psychological History: No Psychological Hx Reported Past Alcohol Use History: None Reported Past Drug Use History: None Reported General Exam - General Exam Comments Initial Comments: GENERAL: Patient is well-developed and well-nourished. Patient is nontoxic and well- hydrated and is in mild distress. ENT: Neck is soft and supple. No significant lymphadenopathy is noted. Oropharynx is clear. Moist mucous membranes. Neck has full range of motion without eliciting any pain. EYES: The sclera were anicteric and conjunctiva were pink and moist. Extraocular movements were intact and pupils were equal round and reactive to light. Eyelids were unremarkable. PULMONARY: Unlabored respirations. Good breath sounds bilaterally. Patient has some crackles in the left base. CARDIOVASCULAR: There is a regular rate and rhythm without any murmurs gallops or rubs. ABDOMEN: Soft and nontender with normal bowel sounds. SKIN: Skin is clear with no lesions or rashes and otherwise unremarkable. NEUROLOGIC: Patient is alert and oriented x3. Cranial nerves II through XII are grossly intact. Motor and sensory are also intact. Normal speech, volume and content. Symmetrical smile. MUSCULOSKELETAL: Normal extremities with adequate strength and full range of motion. Slight edema bilateral legs LYMPHATICS: No significant lymphadenopathy is noted PSYCHIATRIC: Normal psychiatric evaluation. Limitations: no limitations Course Vital Signs 09/26/23 09/26/23 08:42 12:26 Temperature 98.9 F 98 F Pulse Rate 76 96 Respiratory 20 18 Rate Blood Pressure 117/63 146/86 O2 Sat by Pulse 93 L 98 Oximetry Medical Decision Making - Medical Decision Making EKG is interpreted by myself but EKG shows atrial fibrillation 82 bpm QRS is 83 QT interval 370 QTc is 409. Patient's EKG shows no ST segment elevation. Was pt. sent in by a medical professional or institution (, PA, MICROBIOLOGY TECHNICIAN, urgent care, hospital, or residential...) When possible be specific @ -No Did you speak to anyone other than the patient for history (EMS, parent, family, police, friend...)? What history was obtained from this source @ -No Did you review nursing and triage notes (agree or disagree)? Why? @ -I reviewed and agree with nursing and triage notes Were old charts reviewed (outside hosp., previous admission, EMS record, old EKG, old radiological studies, urgent care reports/EKG's, residential records)? Report findings @ -I compared today's troponin level with previous. Today's troponin level was significantly elevated. I also compared today's chest x-ray with previous chest x-ray and saw no changes Differential Diagnosis (chest pain, altered mental status, abdominal pain women, abdominal pain men, vaginal bleeding, weakness, fever, dyspnea, syncope, headache, dizziness, GI bleed, back pain, seizure, CVA, palpatations, mental health, musculoskeletal)? @ -Bronchitis, influenza, COVID, RSV, pulmonary edema, this is not an all- inclusive list EKG interpreted by me (3pts min.). @ -As above X-rays interpreted by me (1pt min.). @ -Chest x-ray shows no acute abnormality CT interpreted by me (1pt min.). @ -None done U/S interpreted by me (1pt. min.). @ -None done What testing was considered but not performed or refused? (CT, X-rays, U/S, labs)? Why? @ -None What meds were considered but not given or refused? Why? @ -None Did you discuss the management of the patient with other professionals (professionals i.e. , PA, MICROBIOLOGY TECHNICIAN, lab, RT, psych nurse, pediatric social worker, stationary equipment mechanic, teacher, ground defence officer, piano case and bench assembler)? Give summary @ -I spoke with Dr. Yoon and he agreed to admit the patient Was smoking cessation discussed for >3mins.? @ -No Was critical care preformed (if so, how long)? @ -35 minutes Were there social determinants of health that impacted care today? How? (Homel essness, low income, unemployed, alcoholism, drug addiction, transportation, low edu. Level, literacy, decrease access to med. care, snf, rehab)? @ -No Was there de-escalation of care discussed even if they declined (Discuss DNR or withdrawal of care, Hospice)? DNR status @ -No What co-morbidities impacted this encounter? (DM, HTN, Smoking, COPD, CAD, Cancer, CVA, ARF, Chemo, Hep., AIDS, mental health diagnosis, sleep apnea, morbid obesity)? @ -None Was patient admitted / discharged? Hospital course, mention meds given and route, prescriptions, significant lab abnormalities, going to OR and other pertinent info. @ -Radiologist thought there was a airspace disease in the left I did not really appreciate this however I will start the patient on antibiotics. Patient's troponin level is elevated so it is a non-STEMI patient will be admitted to [facility] with cardiology consult Undiagnosed new problem with uncertain prognosis? @ -No Drug Therapy requiring intensive monitoring for toxicity (Heparin, Nitro, Insulin, Cardizem)? @ -No Were any procedures done? @ -No Diagnosis/symptom? @ -Non-STEMI Acute, or Chronic, or Acute on Chronic? @ -Acute Uncomplicated (without systemic symptoms) or Complicated (systemic symptoms)? @ -Complicated Side effects of treatment? @ -No Exacerbation, Progression, or Severe Exacerbation? @ -No Poses a threat to life or bodily function? How? (Chest pain, USA, CA, pneumonia, PE, COPD, DKA, ARF, appy, cholecystitis, CVA, Diverticulitis, Homicidal, Suicidal, threat to staff... and all critical care pts) @ -Yes this can lead to an CA and endorgan dysfunction - Lab Data Result diagrams: 09/26/23 08:46 09/26/23 08:46 Lab Results 09/26/23 09/26/23 09/26/23 Range/Units 08:46 08:46 08:46 WBC 7.4 (3.8-10.6) k/uL RBC 4.65 (3.80-5.40) m/uL Hgb 14.9 (11.4-16.0) gm/dL Hct 45.9 (34.0-46.0) % MCV 98.6 (80.0-100.0) fL MCH 32.0 (25.0-35.0) pg MCHC 32.4 (31.0-37.0) g/dL RDW 12.9 (11.5-15.5) % Plt Count 202 (150-450) k/uL MPV 7.5 Neutrophils % 88 % Lymphocytes % 7 % Monocytes % 3 % Eosinophils % 0 % Basophils % 0 % Neutrophils # 6.5 (1.3-7.7) k/uL Lymphocytes # 0.6 L (1.0-4.8) k/uL Monocytes # 0.3 (0-1.0) k/uL Eosinophils # 0.0 (0-0.7) k/uL Basophils # 0.0 (0-0.2) k/uL PT 11.5 (10.0-12.5) sec INR 1.1 (<1.2) APTT 25.4 (22.0-30.0) sec Sodium 136 L (137-145) mmol/L Potassium 4.8 (3.5-5.1) mmol/L Chloride 99 (98-107) mmol/L Carbon Dioxide 32 H (22-30) mmol/L Anion Gap 5 mmol/L BUN 20 H (7-17) mg/dL Creatinine 1.25 H (0.52-1.04) mg/dL Est GFR (CKD-EPI)AfAm 45 (>60 ml/min/1.73 sqM) Est GFR (CKD-EPI)NonAf 39 (>60 ml/min/1.73 sqM) Glucose 117 H (74-99) mg/dL Plasma Lactic Acid Oneil (0.7-2.0) mmol/L Calcium 9.9 (8.4-10.2) mg/dL Magnesium 1.9 (1.6-2.3) mg/dL Total Bilirubin 1.5 H (0.2-1.3) mg/dL AST 36 (14-36) U/L ALT 28 (4-34) U/L Alkaline Phosphatase 85 (38-126) U/L Troponin I (0.000-0.034) ng/mL Total Protein 7.5 (6.3-8.2) g/dL Albumin 4.5 (3.5-5.0) g/dL Influenza Type A (PCR) (Not Detectd) Influenza Type B (PCR) (Not Detectd) RSV (PCR) (Not Detectd) SARS-CoV-2 (PCR) (Not Detectd) 09/26/23 09/26/23 09/26/23 Range/Units 08:46 08:46 08:48 WBC (3.8-10.6) k/uL RBC (3.80-5.40) m/uL Hgb (11.4-16.0) gm/dL Hct (34.0-46.0) % MCV (80.0-100.0) fL MCH (25.0-35.0) pg MCHC (31.0-37.0) g/dL RDW (11.5-15.5) % Plt Count (150-450) k/uL MPV Neutrophils % % Lymphocytes % % Monocytes % % Eosinophils % % Basophils % % Neutrophils # (1.3-7.7) k/uL Lymphocytes # (1.0-4.8) k/uL Monocytes # (0-1.0) k/uL Eosinophils # (0-0.7) k/uL Basophils # (0-0.2) k/uL PT (10.0-12.5) sec INR (<1.2) APTT (22.0-30.0) sec Sodium (137-145) mmol/L Potassium (3.5-5.1) mmol/L Chloride (98-107) mmol/L Carbon Dioxide (22-30) mmol/L Anion Gap mmol/L BUN (7-17) mg/dL Creatinine (0.52-1.04) mg/dL Est GFR (CKD-EPI)AfAm (>60 ml/min/1.73 sqM) Est GFR (CKD-EPI)NonAf (>60 ml/min/1.73 sqM) Glucose (74-99) mg/dL Plasma Lactic Acid Oneil 1.7 (0.7-2.0) mmol/L Calcium (8.4-10.2) mg/dL Magnesium (1.6-2.3) mg/dL Total Bilirubin (0.2-1.3) mg/dL AST (14-36) U/L ALT (4-34) U/L Alkaline Phosphatase (38-126) U/L Troponin I 0.352 H* (0.000-0.034) ng/mL Total Protein (6.3-8.2) g/dL Albumin (3.5-5.0) g/dL Influenza Type A (PCR) Not Detected (Not Detectd) Influenza Type B (PCR) Not Detected (Not Detectd) RSV (PCR) Not Detected (Not Detectd) SARS-CoV-2 (PCR) Not Detected (Not Detectd) Disposition Clinical Impression: NSTEMI (non-ST elevated myocardial infarction) Disposition: ADMITTED IP TO THIS HOSP Referrals: Adamaris Pascual MD [Primary Care Provider] - 1-2 days Time of Disposition: 12:59
[2023-09-26] MEDS ORDERED: NITROGLYCERIN SL TABS 0.4 MG TAB SUBLINGUAL PRN (13:04)
[2023-09-26] MEDS: cefTRIAXone IN SWFI 1,000 MG/10 ML SYRINGE IVP STA (13:54)
[2023-09-26] MEDS: ASPIRIN 81 MG PO STA (13:54)
[2023-09-26] MEDS: FUROSEMIDE 10 MG/ML 2 ML VIAL IV STA (15:07)
[2023-09-26] MEDS: NITROGLYCERIN OINT 1 INCH/GM PACKET TOPICAL SCH (18:56)
[2023-09-26] MEDS: carvediloL 3.125 MG TAB PO SCH (18:56)
[2023-09-26] MEDS: APIXABAN 2.5 MG TABLET PO SCH (21:09)
[2023-09-26] MEDS: ATORVASTATIN 40 MG TAB PO SCH (21:09)
[2023-09-26] MEDS: SYMBICORT 160-4.5 MCG INHALER INHALATION SCH (21:21)
[2023-09-26] MEDS: ALBUTEROL NEBULIZED 2.5 MG/3 ML INHALATION SCH (21:21)
--- NOTE | 2023-09-26 23:37 | P.HPIM ---
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 Patient states she will she has been having cough and clear to yellow sputum production for the past 3 to 4 days. Patient was also having shortness of breath last night. Her symptoms worsened this morning which made her to come to ER. Patient was seen by her primary care physician and was started on Medrol Dosepak and Levaquin. Patient has been taking Levaquin since Monday and started Medrol Dosepak this morning. Denied any fever or chills. No nausea vomiting abdominal pain or diarrhea. No complaints of chest pain. Patient also noticed her legs are not slightly swollen than usual. On admission blood pressure 117/63 pulse 76 respiration 20 and pulse ox 93% on room air. Chest x-ray showed focal airspace consolidation suspected in the left base. No pleural effusion or pneumothorax. EKG showed atrial fibrillation, low QRS voltage in precordial leads Laboratory test showed WBC 7.4 hemoglobin 14.9 and platelets 202 Sodium 136 potassium 4.8 chloride 99 bicarb is 32 BUN 20 and creatinine 1.25 and blood sugar 117 lactic acid 1.7 Troponin level 0.352, 0.305 and 0.275 proBNP 16,900, albumin 4.5 Influenza A, B, RSV and COVID-19 PCR not detected. Review of Systems Constitutional: Patient denies any fever or chills . No generalized weakness or weight loss. Abdomen: Patient denied nausea vomiting and diarrhea and abdominal pain. Cardiovascular: Patient denies any chest pain. Patient did have shortness of breath and leg swelling. No palpitations. Respiratory: patient does have cough with sputum production and shortness of breath Neurologic: Patient denied any numbness or tingling headache. Musculoskeletal: Patient denies any complaints of joint swelling or deformity. Skin: Negative Psychiatric: Negative Endocrine: No heat or cold intolerance. No recent weight gain. Genitourinary: No dysuria or hematuria. All other 14 point ROS negative except the above Past Medical History Past Medical History: Atrial Fibrillation, CVA/TIA, Hypertension Additional Past Medical History / Comment(s): CVA 2016-left side affected History of Any Multi-Drug Resistant Organisms: None Reported Additional Past Surgical History / Comment(s): breast implant augmentation-1976 Past Anesthesia/Blood Transfusion Reactions: No Reported Reaction Past Psychological History: No Psychological Hx Reported Past Alcohol Use History: None Reported Past Drug Use History: None Reported Medications and Allergies Home Medications Medication Instructions Recorded Confirmed Type Albuterol Nebulized [Ventolin 2.5 mg INHALATION RT-BID 05/03/16 09/26/23 History Nebulized] Atorvastatin [Lipitor] 40 mg PO HS 05/03/16 09/26/23 History Spironolactone [Aldactone] 12.5 mg PO Q48H 05/03/16 09/26/23 History Apixaban [Eliquis] 2.5 mg PO BID 03/22/18 09/26/23 History carvediloL [Coreg] 3.125 mg PO BID 03/22/18 09/26/23 History Empagliflozin [Jardiance] 10 mg PO DAILY 09/26/23 09/26/23 History Fluticasone Propion/Salmeterol 2 puff INHALATION RT-BID 09/26/23 09/26/23 History [Advair Hfa 115-21 Mcg Inhaler] Furosemide [Lasix] 20 mg PO DAILY 09/26/23 09/26/23 History Levofloxacin [Levaquin] 500 mg PO DAILY 09/26/23 09/26/23 History SILVER sulfADIAZINE Cream 1 applic TOPICAL BID 09/26/23 09/26/23 History [Silvadene 1% Cream] Valsartan [Diovan] 80 mg PO DAILY 09/26/23 09/26/23 History guaiFENesin [Mucinex] 600 mg PO Q12H 09/26/23 09/26/23 History methylPREDNISolone [Medrol Dose See Taper PO DIRECTED 09/26/23 09/26/23 History Pack] Allergies Allergy/AdvReac Type Severity Reaction Status Date / Time No Known Allergies Allergy Verified 09/26/23 13:08 Physical Exam Vitals: Vital Signs Temp Pulse Resp BP Pulse Ox 09/26/23 12:26 98 F 96 18 146/86 98 09/26/23 08:42 98.9 F 76 20 117/63 93 L Intake and Output 09/25/23 09/26/23 09/26/23 22:59 06:59 14:59 Other: Weight 68.039 kg PHYSICAL EXAMINATION: Patient is lying in the bed comfortably, no acute distress, awake alert and oriented.. HEENT: Normocephalic. Neck is supple. Pupils reactive. Nostrils clear. Oral cavity is moist. Neck reveals no JVD, carotid bruits, or thyromegaly. CHEST EXAMINATION: Trachea is central. Symmetrical expansion. Bilateral bronch ial sounds and minimal expiratory wheeze. Nonlabored breathing. No crackles.. CARDIAC: Normal S1, S2 with no gallops. No murmurs ABDOMEN: Soft. Bowel sounds normal. No organomegaly. No abdominal bruits. Extremities: Bilateral lower extremity 2+ edema. No clubbing or cyanosis Neurologically awake, alert, oriented x3 with well-coordinated movements. No focal deficits noted Skin: No rash or skin lesions. Psychiatric: Coperative. Nonsuicidal Musculoskeletal: No joint swelling or deformity. Normal range of motion. Results CBC & Chem 7: 09/26/23 08:46 09/26/23 08:46 Labs: Abnormal Lab Results - Last 24 Hours (Table) 09/26/23 09/26/23 09/26/23 Range/Units 08:46 08:46 08:46 Lymphocytes # 0.6 L (1.0-4.8) k/uL Sodium 136 L (137-145) mmol/L Carbon Dioxide 32 H (22-30) mmol/L BUN 20 H (7-17) mg/dL Creatinine 1.25 H (0.52-1.04) mg/dL Glucose 117 H (74-99) mg/dL Total Bilirubin 1.5 H (0.2-1.3) mg/dL Troponin I 0.352 H* (0.000-0.034) ng/mL 09/26/23 Range/Units 13:13 Lymphocytes # (1.0-4.8) k/uL Sodium (137-145) mmol/L Carbon Dioxide (22-30) mmol/L BUN (7-17) mg/dL Creatinine (0.52-1.04) mg/dL Glucose (74-99) mg/dL Total Bilirubin (0.2-1.3) mg/dL Troponin I 0.305 H* (0.000-0.034) ng/mL Thrombosis Risk Factor Assmnt - DVT/VTE Prophylaxis DVT/VTE Prophylaxis: Pharmacologic Prophylaxis ordered Assessment and Plan Assessment: Shortness of breath and cough likely due to acute CHF. EF not known Elevated troponin level Chronic atrial fibrillation on anticoagulation with Eliquis Chronic bronchial asthma Hypertension History of CVA DVT prophylaxis. Patient is already on full anticoagulation Plan: Patient will be continued on telemetry monitoring. Follow-up serial troponins. Currently patient does not have any chest pain. Was given a dose of IV Lasix in the ER with slight improvement in symptoms. Continue with IV Lasix 20 mg twice daily. Started back on Coreg and Eliquis. Cardiology consult for further evaluation. Follow-up procalcitonin level. Repeat chest x-ray in the morning. Discussed with the patient and her family at bedside in detail. Time with Patient: Greater than 30
[2023-09-27 06:57] LABS: Basophils % (A) 1 %; Eosinophils % (A) 0 %; HCT 43.5 % (34.0-46.0); HGB 13.7 gm/dL (11.4-16.0); Lymphocytes # (A) 0.7 k/uL (1.0-4.8); Lymphocytes % (A) 12 %; MCH 31.2 pg (25.0-35.0); MCHC 31.5 g/dL (31.0-37.0); MCV 99.1 fL (80.0-100.0); Mean Platelet Volume 7.5; Monocytes # (A) 0.7 k/uL (0-1.0); Monocytes % (A) 12 %; Neutrophils # (A) 4.4 k/uL (1.3-7.7); Neutrophils % (A) 73 %; Platelet Count 207 k/uL (150-450); RBC 4.39 m/uL (3.80-5.40); RDW 12.9 % (11.5-15.5)
[2023-09-27 07:15] LABS: African American GFR (CKD) 48 (>60 ml/min/1.73 sqM); Anion Gap 5 mmol/L; Blood Urea Nitrogen 27 mg/dL (7-17); Carbon Dioxide 31 mmol/L (22-30); Chloride 101 mmol/L (98-107); Glucose 96 mg/dL (74-99); Non-African American GFR(CKD) 41 (>60 ml/min/1.73 sqM); Potassium 3.7 mmol/L (3.5-5.1); Sodium 137 mmol/L (137-145)
[2023-09-27] MEDS: ALBUTEROL NEBULIZED 2.5 MG/3 ML INHALATION PRN (08:11)
--- NOTE | 2023-09-27 08:58 | XR ---
EXAMINATION TYPE: XR chest 1V DATE OF EXAM: 09/27/2023 COMPARISON: 09/26/2023 HISTORY: 88-year-old female CHF follow-up TECHNIQUE: Single frontal view of the chest is obtained. FINDINGS: Bilateral breast implants. Heart mildly enlarged. Atelectatic calcifications throughout. R elative upper lung lucencies with interstitial/vascular prominence. Bibasilar opacities. Left base un derpenetrated and not well assessed. IMPRESSION: COPD with cardiomegaly and slight worsening interstitial changes. Correlate for CHF with slight worsening pulmonary vascular congestion. Left base underpenetrated and not well assessed.
[2023-09-27] MEDS ORDERED: Potassium Replacement Protocol 1 EACH MISC MISCELLANE PRN (09:42)
[2023-09-27] MEDS: FUROSEMIDE 10 MG/ML 2 ML VIAL IV SCH (09:51)
[2023-09-27] MEDS: DAPAGLIFLOZIN PROPANEDIOL 5 MG TABLET PO SCH (09:52)
[2023-09-27] MEDS: POTASSIUM CHLORIDE ER 20 MEQ TAB.ER PO SCH (09:55)
[2023-09-27] MEDS: VALSARTAN 80 MG TAB PO SCH (09:57)
[2023-09-27 11:23] LABS: Glucose,Whole Blood 361 mg/dL (70-110)
--- NOTE | 2023-09-27 15:26 | P.CRDCN ---
History of Present Illness Consult date: 09/27/23 Reason for Consult (text): Non-ST elevated ME History of present illness: History of present illness: This is an 88-year-old female patient of Dr. Espinosa with past medical history of chronic permanent atrial fibrillation on anticoagulation with Eliquis, nonischemic cardiomyopathy with EF of 32 percent, valvular heart disease with severe MR, mild to moderate AR, moderate TR, hypertension, hyperlipidemia, chronic kidney disease. We have been asked to evaluate the patient for non-ST elevated myocardial infarction. Patient presented to the hospital due to cough with clear to yellow sputum production for the past couple of days. Shortness of breath worsened the previous evening. No chest pain or discomfort. Cough has improved since here. She thinks lasix may have helped her feel better. Symptoms started on Monday and became worse by Monday. She has been on Medrol Dosepak and Levaquin since Monday. Patient has been started on IV Lasix 20 mg every 12 hours, Nitropaste. EKG atrial fibrillation Chest x-ray: #1 focal airspace consolidation suspected in the left base. #2 COPD with cardiomegaly and slight worsening interstitial changes. Correlate for CHF with slight worsening pulmonary vascular congestion. Left base underpenetr ated and not well assessed. CBC is unremarkable. BUN 27 creatinine 1.19. Lactic acid 1.8. Troponin 0.352, 0.305, 0.275. proBNP 16,900. Procalcitonin 0.08. Influenza A, influenza B, RSV, COVID-19 not detected. Home cardiac medications: Eliquis 2.5 mg twice daily, Lipitor 40 mg at bedtime, Coreg 3.125 mg twice daily, Jardiance 10 mg daily, Lasix 20 mg daily, Aldactone 12.5 mg every 48 hours, valsartan 80 mg daily. Echocardiogram performed on 09/14/2022 in the office revealed EF of 32%, moderate TR, mild to moderate AR, severe MR. Cardiac catheterization history in 2005 EF was 50% with minimal CAD. Review Of Systems: At the time of my exam: CONSTITUTIONAL: Denies fever or chills. HEENT: Denies blurred vision, vision changes, or eye pain. Denies hemoptysis CARDIOVASCULAR: Denies chest pain. Denies orthopnea. Denies PND. Denies palpitations RESPIRATORY: Denies shortness of breath. GASTROINTESTINAL: Denies abdominal pain. Denies nausea or vomiting. HEMATOLOGIC: Denies bleeding disorders. GENITOURINARY: Denies any blood in urine. SKIN: Denies pruitis. Denies rash. Physical examination: Gen: This is an 88-year-old female in no acute distress VS: reviewed blood pressure 138/81, heart rate 64, pulse ox 94% on 3 L nasal cannula. Patient had a documented pulse ox of 88% on room air. HEENT: Head is atraumatic, normocephalic. Pupils equal, round. Sclerae is anicteric. NECK: Supple. No JVD. LUNGS: Clear to auscultation. No wheezes or rhonchi. No intercostal retractions. HEART: Regular rate and rhythm. 2/6 murmur. ABDOMEN: Soft No tenderness. EXTREMITIES: Bilateral lower extremity edema. No calf tenderness. NEUROLOGICAL: Patient is awake, alert and oriented x3. Assessment: Acute hypoxic respiratory failure Acute on chronic systolic heart failure Elevated troponin most likely type II ME, rule out non-ST elevated ME Nonischemic cardiomyopathy Chronic permanent atrial fibrillation rate controlled Hypertension Hyperlipidemia Valvular heart disease with severe MR, moderate AR, moderate TR Plan: Resume patient's home cardiac medications Continue patient on IV Lasix, 20 mg every 12 hours and plan to transition to oral tomorrow Schedule patient for Lexiscan Cardiolite stress test tomorrow Obtain 2-D echocardiogram and Doppler study to assess cardiac structure and function Further recommendations to follow based upon clinical course Thank you kindly for this consultation. Nurse practitioner note has been reviewed, I agree with documented findings and plan of care. Patient was seen and examined. Past Medical History Past Medical History: Atrial Fibrillation, CVA/TIA, Hypertension Additional Past Medical History / Comment(s): CVA 2016-left side affected History of Any Multi-Drug Resistant Organisms: None Reported Additional Past Surgical History / Comment(s): breast implant augmentation-1976 Past Anesthesia/Blood Transfusion Reactions: No Reported Reaction Past Psychological History: No Psychological Hx Reported Past Alcohol Use History: None Reported Past Drug Use History: None Reported Medications and Allergies Home Medications Medication Instructions Recorded Confirmed Type Albuterol Nebulized [Ventolin 2.5 mg INHALATION RT-BID 05/03/16 09/26/23 History Nebulized] Atorvastatin [Lipitor] 40 mg PO HS 05/03/16 09/26/23 History Spironolactone [Aldactone] 12.5 mg PO Q48H 05/03/16 09/26/23 History Apixaban [Eliquis] 2.5 mg PO BID 03/22/18 09/26/23 History carvediloL [Coreg] 3.125 mg PO BID 03/22/18 09/26/23 History Empagliflozin [Jardiance] 10 mg PO DAILY 09/26/23 09/26/23 History Fluticasone Propion/Salmeterol 2 puff INHALATION RT-BID 09/26/23 09/26/23 His tory [Advair Hfa 115-21 Mcg Inhaler] Furosemide [Lasix] 20 mg PO DAILY 09/26/23 09/26/23 History Levofloxacin [Levaquin] 500 mg PO DAILY 09/26/23 09/26/23 History SILVER sulfADIAZINE Cream 1 applic TOPICAL BID 09/26/23 09/26/23 History [Silvadene 1% Cream] Valsartan [Diovan] 80 mg PO DAILY 09/26/23 09/26/23 History guaiFENesin [Mucinex] 600 mg PO Q12H 09/26/23 09/26/23 History methylPREDNISolone [Medrol Dose See Taper PO DIRECTED 09/26/23 09/26/23 History Pack] Allergies Allergy/AdvReac Type Severity Reaction Status Date / Time No Known Allergies Allergy Verified 09/26/23 13:08 Physical Exam Vitals: Vital Signs Temp Pulse Pulse Resp BP BP Pulse Ox 09/27/23 08:21 78 09/27/23 08:14 99 09/27/23 08:11 74 09/27/23 04:05 18 94 L 09/27/23 04:00 98.3 F 64 18 138/81 88 L 09/27/23 02:00 96 18 09/26/23 23:15 98.0 F 96 18 131/75 94 L 09/26/23 23:00 96 18 09/26/23 22:47 97.8 F 76 20 108/60 93 L 09/26/23 21:31 77 09/26/23 21:22 76 09/26/23 21:00 98.2 F 72 16 107/59 93 L 09/26/23 20:00 80 16 106/58 94 L 04/23/24 18:00 97.6 F 76 20 104/53 93 L 09/26/23 17:00 97.8 F 81 20 123/65 93 L 09/26/23 16:00 72 20 119/76 93 L 09/26/23 15:13 98.2 F 74 20 115/60 94 L 09/26/23 12:30 92 20 09/26/23 12:26 98 F 96 18 146/86 98 Intake and Output 09/26/23 09/27/23 09/27/23 22:59 06:59 14:59 Output Total 250 Balance -250 Output: Urine 250 Other: Voiding Method External Catheter Weight 67.5 kg Results 09/27/23 06:12 09/27/23 06:12 Cardiac Enzymes 09/26/23 09/26/23 09/26/23 Range/Units 08:46 08:46 13:13 AST 36 (14-36) U/L Troponin I 0.352 H* 0.305 H* (0.000-0.034) ng/mL 09/26/23 Range/Units 16:03 AST (14-36) U/L Troponin I 0.275 H* (0.000-0.034) ng/mL Coagulation 09/26/23 Range/Units 08:46 PT 11.5 (10.0-12.5) sec APTT 25.4 (22.0-30.0) sec CBC 09/26/23 09/27/23 Range/Units 08:46 06:12 WBC 7.4 6.0 (3.8-10.6) k/uL RBC 4.65 4.39 (3.80-5.40) m/uL Hgb 14.9 13.7 (11.4-16.0) gm/dL Hct 45.9 43.5 (34.0-46.0) % Plt Count 202 207 (150-450) k/uL Comprehensive Metabolic Panel 09/26/23 09/27/23 Range/Units 08:46 06:12 Sodium 136 L 137 (137-145) mmol/L Potassium 4.8 3.7 (3.5-5.1) mmol/L Chloride 99 101 (98-107) mmol/L Carbon Dioxide 32 H 31 H (22-30) mmol/L BUN 20 H 27 H (7-17) mg/dL Creatinine 1.25 H 1.19 H (0.52-1.04) mg/dL Glucose 117 H 96 (74-99) mg/dL Calcium 9.9 9.0 (8.4-10.2) mg/dL AST 36 (14-36) U/L ALT 28 (4-34) U/L Alkaline Phosphatase 85 (38-126) U/L Total Protein 7.5 (6.3-8.2) g/dL Albumin 4.5 (3.5-5.0) g/dL Current Medications Generic Name Dose Route Start Last Admin Trade Name Freq PRN Reason Stop Dose Admin Albuterol Sulfate 2.5 mg 09/26/23 23:22 09/27/23 08:11 Albuterol Nebulized 2.5 Mg/3 Ml INHALATION 2.5 mg RT-QID PRN Administration Shortness Of Breath Apixaban 2.5 mg 09/26/23 21:00 09/26/23 21:09 Apixaban 2.5 Mg Tablet PO 2.5 mg BID [facility] Administration Protocol Aspirin 325 mg 09/27/23 09:00 Aspirin 325 Mg Tab PO DAILY [facility] Atorvastatin Calcium 40 mg 09/26/23 21:00 09/26/23 21:09 Atorvastatin 40 Mg Tab PO 40 mg HS PADMAJA Administration Budesonide/Formoterol Fumarate 2 puff 09/26/23 20:00 09/27/23 08:21 Symbicort 160-4.5 Mcg Inhaler INHALATION 2 puff RT-BID PADMAJA Administration Carvedilol 3.125 mg 09/26/23 17:30 09/27/23 06:36 Carvedilol 3.125 Mg Tab PO 3.125 mg BID-W/MEALS PADMAJA Administration Dapagliflozin 5 mg 09/27/23 09:00 Dapagliflozin Propanediol 5 Mg Tablet PO DAILY [facility] Furosemide 20 mg 09/27/23 09:00 Furosemide 10 Mg/Ml 2 Ml Vial IV Q12HR [facility] Nitroglycerin 0.4 mg 09/26/23 13:04 Nitroglycerin Sl Tabs 0.4 Mg Tab SUBLINGUAL Q5M PRN Chest Pain Nitroglycerin 1 inch 09/26/23 18:00 09/27/23 06:36 Nitroglycerin Oint 1 Inch/Gm Packet TOPICAL 1 inch Q6HR [facility] Administration Intake and Output 09/26/23 09/27/23 09/27/23 22:59 06:59 14:59 Output Total 250 Balance -250 Output: Urine 250 Other: Voiding Method External Catheter Weight 67.5 kg 09/27/23 06:12 09/27/23 06:12
[2023-09-27] MEDS: ASPIRIN 325 MG TAB PO SCH (18:25)
[2023-09-27 19:12] LABS: Chol/HDL Ratio 1.99 Ratio; LDL Cholesterol,Calculated 46.4 mg/dL (0.0-131.0); VLDL Calculation 11.92 mg/dL (5.00-40.00)
--- NOTE | 2023-09-28 04:00 | P.PN ---
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 Patient states she will she has been having cough and clear to yellow sputum production for the past 3 to 4 days. Patient was also having shortness of breath last night. Her symptoms worsened this morning which made her to come to ER. Patient was seen by her primary care physician and was started on Medrol Dosepak and Levaquin. Patient has been taking Levaquin since Monday and started Medrol Dosepak this morning. Denied any fever or chills. No nausea vomiting abdominal pain or diarrhea. No complaints of chest pain. Patient also noticed her legs are not slightly swollen than usual. On admission blood pressure 117/63 pulse 76 respiration 20 and pulse ox 93% on room air. Chest x-ray showed focal airspace consolidation suspected in the left base. No pleural effusion or pneumothorax. EKG showed atrial fibrillation, low QRS voltage in precordial leads Laboratory test showed WBC 7.4 hemoglobin 14.9 and platelets 202 Sodium 136 potassium 4.8 chloride 99 bicarb is 32 BUN 20 and creatinine 1.25 and blood sugar 117 lactic acid 1.7 Troponin level 0.352, 0.305 and 0.275 proBNP 16,900, albumin 4.5 Influenza A, B, RSV and COVID-19 PCR not detected. 09/27/2023 Patient seen and evaluated in follow-up and reports to feeling about the same si [facility] admission. Patient continues on 2 to 3 L of oxygen via nasal cannula and reports does not wear oxygen outpatient. Patient continued on IV Lasix having some minimal improvement in breathing although continues with cough and congestion. Patient currently n.p.o. while awaiting cardiac evaluation in the event of possible intervention. 2D echo ordered and pending and patient tentatively being scheduled for stress test within the next 24 hours. Patient is afebrile with no reports of chest pain or palpitations. Patient denies nausea or vomiting and currently reports to feeling somewhat hungry. Patient with overall weakness, may need PT/OT therapy evaluation. Review of systems: Constitutional: No reports of fatigue, fever, or chills Cardiovascular: No reports of chest pain or palpitations Respiratory: reports of shortness of breath and continued cough, with minimal improvement GI: No reports of nausea, vomiting, or diarrhea : No reports of dysuria or retention Neurovascular: reports of generalized weakness All medications have been reviewed PHYSICAL EXAMINATION: Patient is sitting up in the bed comfortably, no acute distress, awake alert and oriented.. Elderly appearing, ill-appearing HEENT: Normocephalic. Neck is supple. Pupils reactive. Nostrils clear. Oral cavity is moist. Neck reveals no JVD, carotid bruits, or thyromegaly. CHEST EXAMINATION: Trachea is central. Symmetrical expansion. Bilateral bronchial sounds and minimal expiratory wheeze. Nonlabored breathing. No crackles.. CARDIAC: Normal S1, S2 with no gallops. No murmurs ABDOMEN: Soft. Bowel sounds normal. No organomegaly. No abdominal bruits. Extremities: Bilateral lower extremity 2+ edema with some improvement noted. No clubbing or cyanosis Neurologically awake, alert, oriented x3 with well-coordinated movements. No focal deficits noted, diffusely weak Skin: No rash or skin lesions. Psychiatric: Cooperative. Non-suicidal Musculoskeletal: No joint swelling or deformity. Normal range of motion. Assessment: Shortness of breath and cough likely due to acute CHF exacerbation, acute on chronic systolic dysfunction Acute hypoxic respiratory failure secondary to above Elevated troponin level, likely secondary to type II [place] Nonischemic cardiomyopathy Chronic atrial fibrillation on anticoagulation with Eliquis Chronic bronchial asthma Hypertension History of hyperlipidemia History of valvular heart disease with severe mitral regurgitation, moderate AR, moderate tricuspid regurgitation History of CVA DVT prophylaxis. Patient is already on full anticoagulation GI prophylaxis Full code Plan: Patient will be continued on telemetry monitoring. Follow-up serial troponins. Likely type II OK and cardiology following planning on stress test. 2D echo ordered and pending Continue IV Lasix for another 24 hours and will likely transition to oral Lasix tomorrow Continue with breathing inhalational treatments and supplemental oxygen. Wean FiO2 as tolerated Home medications have been resumed Patient is n.p.o. for cardiology evaluation and will resume diet as patient will likely undergo possible stress testing tomorrow 09/28/2023 Patient with generalized weakness, may need PT/OT therapy evaluation Due to multiple complex medical issues, prognosis is guarded The impression and plan of care has been dictated by Trisha Scruggs, Nurse Practitioner as directed. Dr. Karrie MD I have performed a history and examination and MDM of this patient, discussed th e same with the dictator, and agree with the dictator's assessment and plan as written ,documented as a scribe. Based on total visit time, I have performed more than 50% of the visit. Objective - Vital Signs Vital signs: Vital Signs Temp 98.3 F 09/27/23 04:00 Pulse 78 09/27/23 08:21 Resp 16 09/27/23 08:00 BP 122/78 09/27/23 08:00 Pulse Ox 99 09/27/23 08:14 FiO2 Intake & Output 09/26/23 09/27/23 09/27/23 18:59 06:59 18:59 Output Total 250 Balance -250 Weight 68.039 kg 67.5 kg Output: Urine 250 Other: Voiding Method External Catheter - Labs CBC & Chem 7: 09/27/23 06:12 09/27/23 06:12 Labs: Abnormal Lab Results - Last 24 Hours (Table) 09/26/23 09/26/23 09/27/23 Range/Units 13:13 16:03 06:12 Lymphocytes # (1.0-4.8) k/uL Carbon Dioxide 31 H (22-30) mmol/L BUN 27 H (7-17) mg/dL Creatinine 1.19 H (0.52-1.04) mg/dL Troponin I 0.305 H* 0.275 H* (0.000-0.034) ng/mL 09/27/23 Range/Units 06:12 Lymphocytes # 0.7 L (1.0-4.8) k/uL Carbon Dioxide (22-30) mmol/L BUN (7-17) mg/dL Creatinine (0.52-1.04) mg/dL Troponin I (0.000-0.034) ng/mL
[2023-09-28] MEDS ORDERED: CAFFEINE CITRATE 60 MG/3 ML VIAL IV PRN (06:00)
[2023-09-28] MEDS ORDERED: AMINOPHYLLINE 500 MG/20 ML VIAL IV PRN (06:00)
[2023-09-28] MEDS ORDERED: REGADENOSON 0.4 MG/5 ML SYRINGE IV PRN (07:00)
--- NOTE | 2023-09-28 10:24 | CA ---
Transthoracic Echo Report Name: Tami Gallagher Age: 88 Gender: F : 1935 Exam Date: 09/27/2023 10:46 Exam Location: [facility] Ht (in): 65 Wt (lb): 148 Ordering Physician: Trisha Scruggs Attending/Referring Phys: Vamp Maker Vivienne Carvajal RDCS Procedure CPT: Indications: chf? Cardiac Hx: Technical Quality: Poor Contrast 1: Total Dose (mL): Contrast 2: Total Dose (mL): MEASUREMENTS (Male / Female) Normal Values 2D ECHO LV Diastolic Diameter PLAX 5.5 cm 4.2 - 5.9 / 3.9 - 5.3 cm LV Systolic Diameter PLAX 4.2 cm IVS Diastolic Thickness 0.9 cm 0.6 - 1.0 / 0.6 - 0.9 cm LVPW Diastolic Thickness 0.9 cm 0.6 - 1.0 / 0.6 - 0.9 cm LV Relative Wall Thickness 0.3 RV Internal Dim ED PLAX 1.8 cm LA Systolic Diameter LX 4.0 cm 3.0 - 4.0 / 2.7 - 3.8 cm LV Diastolic Volume MOD 4C 90.9 cm??? LV Systolic Volume MOD 4C 60.3 cm??? LV Ejection Fraction MOD 4C 33.7 % LV Cardiac Index MOD 4C 1283.9 cm???/min???m??? LV Diastolic Length 4C 5.8 cm LV Systolic Length 4C 5.1 cm LV Diastolic Volume MOD 2C 39.2 cm??? LV Systolic Volume MOD 2C 31.1 cm??? LV Ejection Fraction MOD 2C 20.7 % LV Cardiac Index MOD 2C 340.0 cm???/min???m??? LV Diastolic Length 2C 6.5 cm LV Systolic Length 2C 6.1 cm LA Volume 43.8 cm??? 18 - 58 / 22 - 52 cm??? LA Volume Index 24.8 cm???/m??? 16 - 28 cm???/m??? M-MODE LV Diastolic Diameter MM 5.0 cm 4.2 - 5.9 / 3.9 - 5.3 cm LV Systolic Diameter MM 3.9 cm LV Cardiac Index MM Teich 2140.2 cm???/min???m??? IVS Diastolic Thickness MM 0.8 cm 0.6 - 1.0 / 0.6 - 0.9 cm LVPW Diastolic Thickness MM 0.9 cm 0.6 - 1.0 / 0.6 - 0.9 cm LV Relative Wall Thickness MM 0.3 0.24 - 0.42 / 0.22 - 0.42 LV Mass Index MM 83.1 g/m??? 49 - 115 / 43 - 95 g/m??? Aortic Root Diameter MM 3.0 cm AV Cusp Separation MM 1.9 cm DOPPLER AV Peak Velocity 128.4 cm/s AV Peak Gradient 6.6 mmHg MV Area PHT 6.9 cm??? MV Deceleration Time 121.0 ms TR Peak Velocity 237.1 cm/s TR Peak Gradient 22.5 mmHg Right Ventricular Systolic Press 27.5 mmHg FINDINGS Left Ventricle Left ventricular ejection fraction is estimated at 30-35 %. Moderately decreased fractional shortening. Moderately decreased midwall fractional shortening. Mildly increased left ventricular diastolic diameter. Right Ventricle Normal right ventricular size. Right ventricular systolic pressure within normal limits. Right Atrium Right atrium not well visualized. Left Atrium Mildly increased left atrial diameter. Mitral Valve Structurally normal mitral valve. Trace to mild mitral regurgitation. Aortic Valve Trileaflet aortic valve. Trace aortic regurgitation. Tricuspid Valve Structurally normal tricuspid valve. Mild tricuspid regurgitation. Pulmonic Valve Pulmonic valve not well visualized. No pulmonic regurgitation. Pericardium No pericardial effusion. Aorta Normal size aortic root and proximal ascending aorta. CONCLUSIONS Tachycardia difficult study is suboptimal acoustic windows, off axis views Reduced LV systolic function less than 35% with septal hypokinesis, severe Prominent posterior pericardial stripe Previewed by: Dr. Shawn Mckeon MD (Electronically Signed) Final Date: 28 September 2023 10:23
[2023-09-28 11:04] LABS: Basophils # (A) 0.1 k/uL (0-0.2); Basophils % (A) 1 %; Eosinophils % (A) 1 %; HCT 41.2 % (34.0-46.0); HGB 14.2 gm/dL (11.4-16.0); Lymphocytes # (A) 1.1 k/uL (1.0-4.8); Lymphocytes % (A) 20 %; MCH 33.9 pg (25.0-35.0); MCHC 34.3 g/dL (31.0-37.0); MCV 98.8 fL (80.0-100.0); Mean Platelet Volume 8.3; Monocytes # (A) 0.8 k/uL (0-1.0); Monocytes % (A) 14 %; Neutrophils # (A) 3.3 k/uL (1.3-7.7); Neutrophils % (A) 61 %; Platelet Count 204 k/uL (150-450); RBC 4.17 m/uL (3.80-5.40); RDW 13.1 % (11.5-15.5); WBC 5.4 k/uL (3.8-10.6)
[2023-09-28 11:22] LABS: African American GFR (CKD) 47 (>60 ml/min/1.73 sqM); Anion Gap 7 mmol/L; Blood Urea Nitrogen 30 mg/dL (7-17); Calcium 8.8 mg/dL (8.4-10.2); Carbon Dioxide 32 mmol/L (22-30); Chloride 97 mmol/L (98-107); Glucose 83 mg/dL (74-99); Magnesium 1.9 mg/dL (1.6-2.3); Non-African American GFR(CKD) 41 (>60 ml/min/1.73 sqM); Potassium 3.9 mmol/L (3.5-5.1); Sodium 136 mmol/L (137-145)
[2023-09-28] MEDS: SPIRONOLACTONE 25 MG TAB PO SCH (11:52)
--- NOTE | 2023-09-28 12:28 | NM ---
EXAMINATION TYPE: NM stress lexiscan cardiolite DATE OF EXAM: 09/28/2023 COMPARISON: NONE CLINICAL INDICATION: Female, 88 years old with history of elevated troponin; TECHNIQUE: After the intravenous administration of 9.5 mCi Tc 99m Sestamibi - Cardiolite resting SPE CT images acquired 45 minutes post injection. The patient received 0.4mg Lexiscan, 24.4 mCi Tc 99m Sestamibi - Stress images obtained [address] injection FINDINGS: Review of stress and rest SPECT images demonstrates a small area of reversibility along the inferolat eral apical wall. There is large fixed defect along the anteroseptal wall. Gated analysis shows globa l hypokinesis with an estimated left ventricular ejection fraction of 31 %. TID is upper limits of n ormal at 1.17. IMPRESSION: 1. Large fixed defect along the anteroseptal wall suggesting an area of prior infarct. Clinically cor relate. 2. Small area of inducible ischemia at the apical inferolateral wall. 3. Global hypokinesis with estimated LVEF diminished at 31%.
--- NOTE | 2023-09-28 16:42 | P.PN ---
Subjective History of present illness: This is an 88-year-old female patient of Dr. Espinosa with past medical history of chronic permanent atrial fibrillation on anticoagulation with Eliquis, nonischemic cardiomyopathy with EF of 32 percent, valvular heart disease with severe MR, mild to moderate AR, moderate TR, hypertension, hyperlipidemia, chronic kidney disease. We have been asked to evaluate the patient for non-ST elevated myocardial infarction. Patient presented to the hospital due to cough with clear to yellow sputum production for the past couple of days. Shortness of breath worsened the previous evening. No chest pain or discomfort. Cough has improved since here. She thinks lasix may have helped her feel better. Symptoms started on Monday and became worse by Monday. She has been on Medrol Dosepak and Levaquin since Monday. Patient has been started on IV Lasix 20 mg every 12 hours, Nitropaste. EKG atrial fibrillation Chest x-ray: #1 focal airspace consolidation suspected in the left base. #2 COPD with cardiomegaly and slight worsening interstitial changes. Correlate for CHF with slight worsening pulmonary vascular congestion. Left base underpenetrated and not well assessed. CBC is unremarkable. BUN 27 creatinine 1.19. Lactic acid 1.8. Troponin 0.352, 0.305, 0.275. proBNP 16,900. Procalcitonin 0.08. Influenza A, influenza B, RSV, COVID-19 not detected. Home cardiac medications: Eliquis 2.5 mg twice daily, Lipitor 40 mg at bedtime, Coreg 3.125 mg twice daily, Jardiance 10 mg daily, Lasix 20 mg daily, Aldactone 12.5 mg every 48 hours, valsartan 80 mg daily. Echocardiogram performed on 09/14/2022 in the office revealed EF of 32%, moderate TR, mild to moderate AR, severe MR. Cardiac catheterization history in 2005 EF was 50% with minimal CAD. 09/27 patient seen and examined. Patient had echocardiogram which shows EF 35% with global hypokinesis however additionally underwent Lexiscan stress test where she had large area of fixed anterior defect however also reversible inferolateral perfusion defect. She additionally got more short of breath after the stress test and has not been feeling her normal self. Heart rates controlled in the 80s to 90s. Physical examination: Gen: This is an 88-year-old female in no acute distress VS: reviewed blood pressure 138/81, heart rate 64, pulse ox 94% on 3 L nasal can nula. Patient had a documented pulse ox of 88% on room air. HEENT: Head is atraumatic, normocephalic. Pupils equal, round. Sclerae is anicteric. NECK: Supple. No JVD. LUNGS: Clear to auscultation. No wheezes or rhonchi. No intercostal retractions. HEART: Regular rate and rhythm. 2/6 murmur. ABDOMEN: Soft No tenderness. EXTREMITIES: Bilateral lower extremity edema. No calf tenderness. NEUROLOGICAL: Patient is awake, alert and oriented x3. Assessment: Acute hypoxic respiratory failure Acute on chronic systolic heart failure Elevated troponin most likely type II PA, rule out non-ST elevated PA NHx of nonischemic cardiomyopathy Chronic permanent atrial fibrillation rate controlled Hypertension Hyperlipidemia Valvular heart disease with severe MR, moderate AR, moderate TR Plan: continue with current heart failure regimen. She has multiple abnormalities including non-STEMI, prior history of moderate disease, cardiomyopathy and ongoing symptoms and therefore discussed heart catheterization and patient agreeable. Heart catheterization 09/28. Further recommendations after. Objective - Vital Signs Vital signs: Vital Signs Temp 98.2 F 09/28/23 08:00 Pulse 77 09/28/23 16:00 Resp 16 09/28/23 16:00 BP 126/66 09/28/23 16:00 Pulse Ox 100 09/28/23 16:00 FiO2 Intake & Output 09/27/23 09/28/23 09/28/23 18:59 06:59 18:59 Intake Total 0 118 Output Total 1250 600 150 Balance -1250 -600 -32 Weight 69 kg Intake: Oral 0 118 Output: Urine 1250 600 150 Other: Voiding Method External Catheter External Catheter External Catheter # Voids 1 # Bowel Movements 1 1 - Labs CBC & Chem 7: 09/28/23 08:53 09/28/23 08:53 Labs: Abnormal Lab Results - Last 24 Hours (Table) 09/28/23 Range/Units 08:53 Sodium 136 L (137-145) mmol/L Chloride 97 L (98-107) mmol/L Carbon Dioxide 32 H (22-30) mmol/L BUN 30 H (7-17) mg/dL Creatinine 1.21 H (0.52-1.04) mg/dL Microbiology - Last 24 Hours (Table) 09/26/23 13:19 Blood Culture - Preliminary Blood 09/26/23 08:50 Blood Culture - Preliminary Blood
[2023-09-28] MEDS ORDERED: NITROGLYCERIN SL TABS 0.4 MG TAB SUBLINGUAL PRN (17:08)
[2023-09-28] MEDS ORDERED: ALPRAZolam 0.5 MG TAB PO PRN (17:08)
[2023-09-28] MEDS ORDERED: ALPRAZolam 0.25 MG TAB PO PRN (17:08)
[2023-09-28] MEDS ORDERED: guaiFENesin 600 MG TABLET.ER PO PRN (22:32)
[2023-09-29 01:58] LABS: Glucose,Whole Blood 111 mg/dL (70-110)
--- NOTE | 2023-09-29 04:59 | P.PN ---
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 Patient states she will she has been having cough and clear to yellow sputum production for the past 3 to 4 days. Patient was also having shortness of breath last night. Her symptoms worsened this morning which made her to come to ER. Patient was seen by her primary care physician and was started on Medrol Dosepak and Levaquin. Patient has been taking Levaquin since Monday and started Medrol Dosepak this morning. Denied any fever or chills. No nausea vomiting abdominal pain or diarrhea. No complaints of chest pain. Patient also noticed her legs are not slightly swollen than usual. On admission blood pressure 117/63 pulse 76 respiration 20 and pulse ox 93% on room air. Chest x-ray showed focal airspace consolidation suspected in the left base. No pleural effusion or pneumothorax. EKG showed atrial fibrillation, low QRS voltage in precordial leads Laboratory test showed WBC 7.4 hemoglobin 14.9 and platelets 202 Sodium 136 potassium 4.8 chloride 99 bicarb is 32 BUN 20 and creatinine 1.25 and blood sugar 117 lactic acid 1.7 Troponin level 0.352, 0.305 and 0.275 proBNP 16,900, albumin 4.5 Influenza A, B, RSV and COVID-19 PCR not detected. 09/27/2023 Patient seen and evaluated in follow-up and reports to feeling about the same si [facility] admission. Patient continues on 2 to 3 L of oxygen via nasal cannula and reports does not wear oxygen outpatient. Patient continued on IV Lasix having some minimal improvement in breathing although continues with cough and congestion. Patient currently n.p.o. while awaiting cardiac evaluation in the event of possible intervention. 2D echo ordered and pending and patient tentatively being scheduled for stress test within the next 24 hours. Patient is afebrile with no reports of chest pain or palpitations. Patient denies nausea or vomiting and currently reports to feeling somewhat hungry. Patient with overall weakness, may need PT/OT therapy evaluation. 09/28/2023 Patient is seen and evaluated in follow-up this morning reporting feeling slightly improved. Patient underwent Lexiscan with cardiology following showing some areas of possibly an old infarct and also concerns of reversible ischemia and is discussing possible cardiac catheterization on 09/29/2023 with cardiology. Patient will continue on current medication regimen and symptomatic support. Patient continues on 2 L via nasal cannula reports her breathing is minimally improved. Patient is coughing up some green mucus and procalcitonin was normal. Will make Mucinex scheduled. Patient is afebrile and denies chest pain or palpitations. Patient with no reported nausea or vomiting and has been tolerating diet. Needs encouragement with meals and does not eat very much per family at the bedside. Recommend sitting up in the chair and increased activity as tolerated Review of systems: Constitutional: No reports of fatigue, fever, or chills Cardiovascular: No reports of chest pain or palpitations Respiratory: reports of shortness of breath and continued cough, with minimal improvement, reports thick green sputum production GI: No reports of nausea, vomiting, or diarrhea, reports not much of an appetite : No reports of dysuria or retention Neurovascular: reports of generalized weakness All medications have been reviewed PHYSICAL EXAMINATION: Patient is sitting up in the bed comfortably, no acute distress, awake alert and oriented.. Elderly appearing, ill-appearing HEENT: Normocephalic. Neck is supple. Pupils reactive. Nostrils clear. Oral cavity is moist. Neck reveals no JVD, carotid bruits, or thyromegaly. CHEST EXAMINATION: Trachea is central. Symmetrical expansion. Bilateral br onchial sounds and minimal expiratory wheeze. Nonlabored breathing. No crackles.. CARDIAC: S1, S2 muffled ABDOMEN: Soft. Thin, bowel sounds normal. No organomegaly. No abdominal bruits. Extremities: Bilateral lower extremity 2+ edema with some improvement noted. No clubbing or cyanosis Neurologically awake, alert, oriented x3 with well-coordinated movements. No focal deficits noted, diffusely weak Skin: No rash or skin lesions. Psychiatric: Cooperative. Non-suicidal Musculoskeletal: No joint swelling or deformity. Normal range of motion. Assessment: Shortness of breath and cough likely due to acute CHF exacerbation, acute on chronic systolic dysfunction Acute hypoxic respiratory failure secondary to above Elevated troponin level, likely secondary to type II ME Nonischemic cardiomyopathy Chronic atrial fibrillation on anticoagulation with Eliquis Chronic bronchial asthma Hypertension History of hyperlipidemia History of valvular heart disease with severe mitral regurgitation, moderate AR, moderate tricuspid regurgitation, status post stress test showing areas of concern and possible old infarct. Tentatively scheduled for cardiac catheterization 09/29/2023 History of CVA DVT prophylaxis. Patient is already on full anticoagulation GI prophylaxis Full code Plan: Patient will be continued on telemetry monitoring. Follow-up serial troponins. Likely type II ME and cardiology following planning on cardiac catheterization on 09/29/2023 as patient underwent Lexiscan which is showing some areas of old infarct and further concerns of ischemia. Continue IV Lasix for another 24 hours and will monitor kidney functions and electrolytes. Patient reports feeling her shortness of breath is slightly improved with the Lasix Continue with breathing inhalational treatments and supplemental oxygen. Wean FiO2 as tolerated. Currently continues on 2 L and reports does not wear any oxygen outpatient Home medications have been resumed Patient will be n.p.o. at midnight for possible cardiac catheterization per cardiology Patient with generalized weakness, may need PT/OT therapy evaluation Due to multiple complex medical issues, prognosis is guarded The impression and plan of care has been dictated by Trisha Scruggs, Nurse Practitioner as directed. Dr. Karrie MD I have performed a history and examination and MDM of this patient, discussed the same with the dictator, and agree with the dictator's assessment and plan as written ,documented as a scribe. Based on total visit time, I have performed more than 50% of the visit. Objective - Vital Signs Vital signs: Vital Signs Temp 97.7 F 09/28/23 20:15 Pulse 62 09/29/23 04:10 Resp 16 09/29/23 04:10 BP 108/62 09/29/23 04:10 Pulse Ox 95 09/29/23 04:10 FiO2 Intake & Output 09/28/23 09/28/23 09/29/23 06:59 18:59 06:59 Intake Total 0 236 Output Total 600 150 Balance -600 86 Weight 69 kg Intake: Oral 0 236 Output: Urine 600 150 Other: Voiding Method External Catheter External Catheter External Catheter # Voids 1 # Bowel Movements 1 - Labs CBC & Chem 7: 09/28/23 08:53 09/28/23 08:53 Labs: Abnormal Lab Results - Last 24 Hours (Table) 09/28/23 09/29/23 Range/Units 08:53 01:56 Sodium 136 L (137-145) mmol/L Chloride 97 L (98-107) mmol/L Carbon Dioxide 32 H (22-30) mmol/L BUN 30 H (7-17) mg/dL Creatinine 1.21 H (0.52-1.04) mg/dL POC Glucose (mg/dL) 111 H (70-110) mg/dL Microbiology - Last 24 Hours (Table) 09/26/23 13:19 Blood Culture - Preliminary Blood 09/26/23 08:50 Blood Culture - Preliminary Blood
[2023-09-29] MEDS: ATORVASTATIN 80 MG TAB PO ONE (06:11)
[2023-09-29] MEDS: ASPIRIN 325 MG TAB PO ONE (06:11)
[2023-09-29] MEDS ORDERED: HEPARIN SODIUM,PORCINE (1 ML) 2,500 UNIT in SODIUM CHLORIDE 0.9% 250 ML IRRIGATION PRN (07:00)
[2023-09-29] MEDS ORDERED: HEPARIN SODIUM,PORCINE 10,000 UNIT in SODIUM CHLORIDE 0.9% 1,000 ML IRRIGATION PRN (07:00)
--- NOTE | 2023-09-29 07:52 | CA ---
Lexiscan Nuclear Stress Test Report Name: Tami Gallagher Exam Date: 09/28/2023 10:25 Exam Location: [facility] Ht (in): 65 Wt (lb): 160 BSA: 1.80 Ordering Phys: Martha Tovar Referring Phys: INDER,, Technologist: GLENNA,, Age: 88 Gender: F : 1935 Procedure CPT: Indications: Reflex order-Stress test ICD-10 Codes: Patient History: NSTEM,cough Medications: Meds past 24 hrs: Pretest Chest Pain: STRESS TEST Lexiscan Protocol Exercise Duration (min:sec): 02:[address] Depressions (mm): Angina Score: Flores Score: Resting HR (bpm): 81 Peak HR (bpm): 106 Resting BP (mmHg): 123 / 63 Peak BP (mmHg): 133 / 71 MPHR: 134 Target HR: 114 % MPHR: 79 METS: 1.0 Total Dose: Peak Dose: Atropine: Double Product: 79903 BP Response: Stress Termination: Imfusion complete Stress Symptoms: No chest pain or symptoms Stress Summary: ECG ANALYSIS Resting ECG: Stress ECG: CONCLUSIONS [facility] stress test shows atrial fibrillation with frequent PVCs at baseline No ECG evidence for ischemia Patient continued to have frequent PVCs with underlying atrial fibrillation. No new ST-T abnormalities Nuclear portion will be reported separately Dr. Shawn Mckeon MD (Electronically Signed) Final Date: 29 September 2023 07:50
[2023-09-29] MEDS: guaiFENesin 600 MG TABLET.ER PO SCH (08:32)
[2023-09-29 10:17] LABS: Basophils % (A) 1 %; Eosinophils # (A) 0.1 k/uL (0-0.7); Eosinophils % (A) 1 %; HCT 41.7 % (34.0-46.0); HGB 13.3 gm/dL (11.4-16.0); Lymphocytes # (A) 1.2 k/uL (1.0-4.8); Lymphocytes % (A) 22 %; MCH 31.1 pg (25.0-35.0); MCHC 31.8 g/dL (31.0-37.0); MCV 97.8 fL (80.0-100.0); Monocytes # (A) 0.6 k/uL (0-1.0); Monocytes % (A) 10 %; Neutrophils # (A) 3.5 k/uL (1.3-7.7); Neutrophils % (A) 63 %; Platelet Count 184 k/uL (150-450); RBC 4.26 m/uL (3.80-5.40); RDW 12.5 % (11.5-15.5); WBC 5.6 k/uL (3.8-10.6)
[2023-09-29 10:32] LABS: African American GFR (CKD) 53 (>60 ml/min/1.73 sqM); Anion Gap 4 mmol/L; Blood Urea Nitrogen 28 mg/dL (7-17); Carbon Dioxide 33 mmol/L (22-30); Chloride 95 mmol/L (98-107); Glucose 93 mg/dL (74-99); Magnesium 1.9 mg/dL (1.6-2.3); Non-African American GFR(CKD) 46 (>60 ml/min/1.73 sqM); Potassium 3.4 mmol/L (3.5-5.1); Sodium 132 mmol/L (137-145)
[2023-09-29] MEDS ORDERED: Potassium Replacement Protocol 1 EACH MISC MISCELLANE PRN (10:54)
[2023-09-29] MEDS: POTASSIUM CHLORIDE ER 20 MEQ TAB.ER PO SCH (11:21)
[2023-09-29] MEDS: IV FLUID CONTINUATION 1,000 ML IV ONE (12:20)
[2023-09-29] MEDS: fentaNYL (PF) 50 MCG/ML 2 ML AMP IVP ONE (12:24)
[2023-09-29] MEDS: LIDOCAINE 1% INJ 10MG/ML (20 ML MDV) SQ ONE (12:26)
[2023-09-29] MEDS ORDERED: RX INFO: IV CONTRAST WAS GIVEN 1 EACH MISC MISCELLANE PRN (13:24)
[2023-09-29] MEDS: IOPAMIDOL-370 100ML BTL INJ ONE (13:25)
--- NOTE | 2023-09-29 13:31 | P.CARDCATH ---
Date of Procedure: 09/29/23 Description of Procedure: Cardiac Catheterization: The patient is an 88-year-old female with a known history of atrial fibrillation, hypertension and hyperlipidemia as well as cardiomyopathy who presented with symptoms of progressive dyspnea, cough and mild troponin elevation. She underwent an MPI that showed evidence of ischemia. Recommendations were made regarding cardiac catheterization, the risks and the complications were discussed with the patient who is in full understanding and agreement. Procedure Description: Patient was brought to laboratory animal caretaker in fasting semi-sedated state after receiving Fentanyl and Benadryl achieiving moderate conscious sedated state. Using Xylocaine Anesthesia and modified Seldinger technique, using micropuncture technique a 6-Telugu sheath was introduced in the right femoral artery . Attempt to cannulate the left radial artery were unsuccessful because of deform ity related to the stroke. Subsequently, selective coronary angiography was performed using a 6-Telugu 4 bend Nils catheter. Multiple views of the coronary artery including hemiaxial views were obtained. The right Nils catheter was used to cross the aortic valve and LVEDP was calculated. Following that, catheter and sheath were removed. Hemostasis was obtained with deployment of Angio-Seal. There was no immediate complication. Patient was returned to room in stable condition. Findings: Fluoroscopy: Severe calcification of the thoracic aorta was noted Left main: This is a large size vessel, bifurcating into LAD and left circumflex, left main has no obstructive disease LAD: This is a large size vessel, tapers down in the distal third, gives rise to 2 diagonal branch. The mid LAD has 20% plaque with no high-grade stenosis Left circumflex: This is a nondominant vessel giving rise to 2 obtuse marginal branch. The proximal left circumflex has 10 to 20% plaque, the rest of the vess el has no high-grade stenosis RCA: This is a large dominant vessel, bifurcating distally to PDA and PLV the mid right coronary artery has intimal disease of 20 to 30% with no high-grade stenosis Left Ventriculogram: Not performed Hemodynamics: There was no gradient across the aortic valve, LVEDP was 12-16 mmHg Conclusion: 1. Calcified thoracic aorta 2. Mild triple-vessel disease 3. Right dominance 4. Normal LVEDP Recommendations: I have recommended to continue medical therapy with the aggressive coronary risks modification that has been initiated. The findings and the recommendations were discussed with the patient and the family and they were in full understanding and agreement. Duration of sedation is 41 minutes.
[2023-09-29 15:55] LABS: African American GFR (CKD) 57 (>60 ml/min/1.73 sqM); Anion Gap 3 mmol/L; Blood Urea Nitrogen 30 mg/dL (7-17); Calcium 8.8 mg/dL (8.4-10.2); Carbon Dioxide 35 mmol/L (22-30); Chloride 96 mmol/L (98-107); Glucose 98 mg/dL (74-99); Non-African American GFR(CKD) 49 (>60 ml/min/1.73 sqM); Potassium 4.2 mmol/L (3.5-5.1); Sodium 134 mmol/L (137-145)
--- NOTE | 2023-09-29 16:49 | P.PN ---
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 Patient states she will she has been having cough and clear to yellow sputum production for the past 3 to 4 days. Patient was also having shortness of breath last night. Her symptoms worsened this morning which made her to come to ER. Patient was seen by her primary care physician and was started on Medrol Dosepak and Levaquin. Patient has been taking Levaquin since Monday and started Medrol Dosepak this morning. Denied any fever or chills. No nausea vomiting abdominal pain or diarrhea. No complaints of chest pain. Patient also noticed her legs are not slightly swollen than usual. On admission blood pressure 117/63 pulse 76 respiration 20 and pulse ox 93% on room air. Chest x-ray showed focal airspace consolidation suspected in the left base. No pleural effusion or pneumothorax. EKG showed atrial fibrillation, low QRS voltage in precordial leads Laboratory test showed WBC 7.4 hemoglobin 14.9 and platelets 202 Sodium 136 potassium 4.8 chloride 99 bicarb is 32 BUN 20 and creatinine 1.25 and blood sugar 117 lactic acid 1.7 Troponin level 0.352, 0.305 and 0.275 proBNP 16,900, albumin 4.5 Influenza A, B, RSV and COVID-19 PCR not detected. Objective - Vital Signs Vital signs: Vital Signs Temp 97.9 F 09/29/23 08:00 Pulse 60 09/29/23 09:58 Resp 16 09/29/23 08:00 BP 105/67 09/29/23 08:00 Pulse Ox 96 09/29/23 09:52 FiO2 Intake & Output 09/28/23 09/29/23 09/29/23 18:59 06:59 18:59 Intake Total 236 Output Total 150 450 Balance 86 -450 Weight 67 kg Intake: Oral 236 Output: Urine 150 450 Other: Voiding Method External Catheter External Catheter External Catheter # Voids 1 # Bowel Movements 1 - Exam Patient is sitting up in the bed comfortably, no acute distress, awake alert and oriented.. Elderly appearing, ill-appearing HEENT: Normocephalic. Neck is supple. Pupils reactive. Nostrils clear. Oral cavity is moist. Neck reveals no JVD, carotid bruits, or thyromegaly. CHEST EXAMINATION: Trachea is central. Symmetrical expansion. Bilateral br onchial sounds and minimal expiratory wheeze. Nonlabored breathing. No crackles.. CARDIAC: S1, S2 muffled ABDOMEN: Soft. Thin, bowel sounds normal. No organomegaly. No abdominal bruits. Extremities: Bilateral lower extremity 2+ edema with some improvement noted. No clubbing or cyanosis Neurologically awake, alert, oriented x3 with well-coordinated movements. No focal deficits noted, diffusely weak Skin: No rash or skin lesions. Psychiatric: Cooperative. Non-suicidal Musculoskeletal: No joint swelling or deformity. Normal range of motion. - Labs CBC & Chem 7: 09/29/23 09:37 09/29/23 15:10 Labs: Abnormal Lab Results - Last 24 Hours (Table) 09/29/23 09/29/23 Range/Units 01:56 09:37 Sodium 132 L (137-145) mmol/L Potassium 3.4 L (3.5-5.1) mmol/L Chloride 95 L (98-107) mmol/L Carbon Dioxide 33 H (22-30) mmol/L BUN 28 H (7-17) mg/dL Creatinine 1.10 H (0.52-1.04) mg/dL POC Glucose (mg/dL) 111 H (70-110) mg/dL Microbiology - Last 24 Hours (Table) 09/26/23 13:19 Blood Culture - Preliminary Blood 09/26/23 08:50 Blood Culture - Preliminary Blood Assessment and Plan Assessment: Shortness of breath and cough likely due to acute CHF exacerbation, acute on chronic systolic dysfunction Acute hypoxic respiratory failure secondary to above Elevated troponin level, likely secondary to type II [place] Nonischemic cardiomyopathy Chronic atrial fibrillation on anticoagulation with Eliquis Chronic bronchial asthma Hypertension History of hyperlipidemia History of valvular heart disease with severe mitral regurgitation, moderate AR, moderate tricuspid regurgitation, status post stress test showing areas of concern and possible old infarct. Tentatively scheduled for cardiac catheteri zation 09/29/2023 History of CVA DVT prophylaxis. Patient is already on full anticoagulation GI prophylaxis Full code Plan: Patient will be continued on telemetry monitoring. Follow-up serial troponins. Likely type II [place] and cardiology following planning on cardiac catheterization on 09/29/2023 as patient underwent Lexiscan which is showing some areas of old infarct and further concerns of ischemia. Continue IV Lasix for another 24 hours and will monitor kidney functions and electrolytes. Patient reports feeling her shortness of breath is slightly improved with the Lasix Continue with breathing inhalational treatments and supplemental oxygen. Wean FiO2 as tolerated. Currently continues on 2 L and reports does not wear any oxygen outpatient Home medications have been resumed Patient will be n.p.o. at midnight for possible cardiac catheterization per cardiology Patient with generalized weakness, may need PT/OT therapy evaluation Due to multiple complex medical issues, prognosis is guarded
[2023-09-29] MEDS: FUROSEMIDE 20 MG TAB PO SCH (17:34)
[2023-09-30 07:51] LABS: HCT 41.5 % (34.0-46.0); HGB 13.2 gm/dL (11.4-16.0); MCH 30.9 pg (25.0-35.0); MCHC 31.8 g/dL (31.0-37.0); MCV 97.1 fL (80.0-100.0); Mean Platelet Volume 8.3; Neutrophils % (A) 65 %; Platelet Count 199 k/uL (150-450); RBC 4.27 m/uL (3.80-5.40); RDW 12.7 % (11.5-15.5); WBC 6.4 k/uL (3.8-10.6)
[2023-09-30 07:52] LABS: Basophils % (A) 1 %; Eosinophils # (A) 0.1 k/uL (0-0.7); Eosinophils % (A) 1 %; Lymphocytes # (A) 1.3 k/uL (1.0-4.8); Lymphocytes % (A) 20 %; Monocytes # (A) 0.7 k/uL (0-1.0); Monocytes % (A) 10 %; Neutrophils # (A) 4.1 k/uL (1.3-7.7)
[2023-09-30 08:05] LABS: African American GFR (CKD) 65 (>60 ml/min/1.73 sqM); Anion Gap 5 mmol/L; Blood Urea Nitrogen 26 mg/dL (7-17); Calcium 8.7 mg/dL (8.4-10.2); Carbon Dioxide 29 mmol/L (22-30); Chloride 97 mmol/L (98-107); Glucose 79 mg/dL (74-99); Non-African American GFR(CKD) 57 (>60 ml/min/1.73 sqM); Potassium 4.1 mmol/L (3.5-5.1); Sodium 131 mmol/L (137-145)
[2023-09-30] MEDS: SODIUM CHLORIDE 0.9% 1,000 ML IV SCH (08:35)
[2023-09-30] MEDS: APIXABAN 2.5 MG TABLET PO SCH (08:45)
[2023-09-30] MEDS: DAPAGLIFLOZIN PROPANEDIOL 10 MG TABLET PO SCH (08:45)
--- NOTE | 2023-09-30 12:08 | P.PN ---
Subjective Progress Note Date: 09/30/23 History of present illness: This is an 88-year-old female patient of Dr. Espinosa with past medical history of chronic permanent atrial fibrillation on anticoagulation with Eliquis, nonischemic cardiomyopathy with EF of 32 percent, valvular heart disease with severe MR, mild to moderate AR, moderate TR, hypertension, hyperlipidemia, chronic kidney disease. We have been asked to evaluate the patient for non-ST elevated myocardial infarction. Patient presented to the hospital due to cough with clear to yellow sputum production for the past couple of days. Shortness of breath worsened the previous evening. No chest pain or discomfort. Cough has improved since here. She thinks lasix may have helped her feel better. Symptoms started on Monday and became worse by Monday. She has been on Medrol Dosepak and Levaquin since Monday. Patient has been started on IV Lasix 20 mg every 12 hours, Nitropaste. EKG atrial fibrillation Chest x-ray: #1 focal airspace consolidation suspected in the left base. #2 COPD with cardiomegaly and slight worsening interstitial changes. Correlate for CHF with slight worsening pulmonary vascular congestion. Left base underpenetrated and not well assessed. CBC is unremarkable. BUN 27 creatinine 1.19. Lactic acid 1.8. Troponin 0.352, 0.305, 0.275. proBNP 16,900. Procalcitonin 0.08. Influenza A, influenza B, RSV, COVID-19 not detected. Home cardiac medications: Eliquis 2.5 mg twice daily, Lipitor 40 mg at bedtime, Coreg 3.125 mg twice daily, Jardiance 10 mg daily, Lasix 20 mg daily, Aldactone 12.5 mg every 48 hours, valsartan 80 mg daily. Echocardiogram performed on 09/14/2022 in the office revealed EF of 32%, moderate TR, mild to moderate AR, severe MR. Cardiac catheterization history in 2005 EF was 50% with minimal CAD. 09/27 patient seen and examined. Patient had echocardiogram which shows EF 35% with global hypokinesis however additionally underwent Lexiscan stress test where she had large area of fixed anterior defect however also reversible inferolateral perfusion defect. She additionally got more short of breath after the stress test and has not been feeling her normal self. Heart rates controlled in the 80s to 90s. 09/29 Patient underwent MPI that showed evidence of ischemia. Yesterday, patient underwent cardiac catheterization with Dr. Espinosa which revealed calcified thoracic aorta, mild triple-vessel disease, right dominance, normal LVEDP. Recommendations for aggressive coronary risk factor modification. Patient is seen today in follow-up. She states she is feeling congested with a cough and sputum production. She is noted to have more wheezing today. She is asking for a pulmonary medicine consult. Patient is currently on oral Lasix. Physical examination: Gen: This is an 88-year-old female in no acute distress VS: reviewed HEENT: Head is atraumatic, normocephalic. Pupils equal, round. Sclerae is anicteric. NECK: Supple. No JVD. LUNGS: Bilateral expiratory wheeze. No intercostal retractions. HEART: Regular rate and rhythm. 2/6 murmur. ABDOMEN: Soft No tenderness. EXTREMITIES: Bilateral lower extremity edema. No calf tenderness. NEUROLOGICAL: Patient is awake, alert and oriented x3. Assessment: Acute hypoxic respiratory failure Acute on chronic systolic heart failure Elevated troponin most likely type II [place], ruled out non-ST elevated IN NHx of nonischemic cardiomyopathy Chronic permanent atrial fibrillation rate controlled Hypertension Hyperlipidemia Valvular heart disease with severe MR, moderate AR, moderate TR Plan: Continue current cardiac medications Attending to consider pulmonary medicine consult At the time of discharge, patient may follow-up with Dr. Espinosa in 1 to 2 weeks. Nurse practitioner note has been reviewed, I agree with documented findings and plan of care. Patient was seen and examined. Objective - Vital Signs Vital signs: Vital Signs Temp 97.7 F 09/30/23 04:00 Pulse 60 09/30/23 08:47 Resp 16 09/30/23 08:00 BP 119/56 09/30/23 08:00 Pulse Ox 96 09/30/23 08:28 FiO2 Intake & Output 09/29/23 09/30/23 09/30/23 18:59 06:59 18:59 Intake Total 150 Output Total 650 550 Balance -500 -550 Weight 69.3 kg Intake: IV 150 Output: Urine 650 550 Other: Voiding Method External Catheter External Catheter # Voids 1 - Labs CBC & Chem 7: 09/30/23 07:03 09/30/23 06:58 Labs: Abnormal Lab Results - Last 24 Hours (Table) 09/29/23 09/29/23 09/30/23 Range/Units 09:37 15:10 06:58 Sodium 132 L 134 L 131 L (137-145) mmol/L Potassium 3.4 L (3.5-5.1) mmol/L Chloride 95 L 96 L 97 L (98-107) mmol/L Carbon Dioxide 33 H 35 H (22-30) mmol/L BUN 28 H 30 H 26 H (7-17) mg/dL Creatinine 1.10 H (0.52-1.04) mg/dL Microbiology - Last 24 Hours (Table) 09/26/23 13:19 Blood Culture - Preliminary Blood 09/26/23 08:50 Blood Culture - Preliminary Blood
[2023-09-30 13:43] LABS: C Reactive Protein 2.4 mg/dL (<1.0)
--- NOTE | 2023-09-30 13:56 | XR ---
EXAMINATION TYPE: XR chest 2V DATE OF EXAM: 09/30/2023 COMPARISON: 09/27/2023 HISTORY: 88-year-old female with congestion TECHNIQUE: AP and lateral views FINDINGS: Low for patient rotation ultrasound normal cardiac mediastinal contours. Heart appears borderline enl arged. Atherosclerotic calcifications throughout the aorta. Bibasilar opacities persist with small le ft pleural effusion. IMPRESSION: Bibasilar opacities persist, left greater than right. There may be slight improvement.
--- NOTE | 2023-09-30 14:49 | P.PN ---
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 Patient states she will she has been having cough and clear to yellow sputum production for the past 3 to 4 days. Patient was also having shortness of breath last night. Her symptoms worsened this morning which made her to come to ER. Patient was seen by her primary care physician and was started on Medrol Dosepak and Levaquin. Patient has been taking Levaquin since Monday and started Medrol Dosepak this morning. Denied any fever or chills. No nausea vomiting abdominal pain or diarrhea. No complaints of chest pain. Patient also noticed her legs are not slightly swollen than usual. On admission blood pressure 117/63 pulse 76 respiration 20 and pulse ox 93% on room air. Chest x-ray showed focal airspace consolidation suspected in the left base. No pleural effusion or pneumothorax. EKG showed atrial fibrillation, low QRS voltage in precordial leads Laboratory test showed WBC 7.4 hemoglobin 14.9 and platelets 202 Sodium 136 potassium 4.8 chloride 99 bicarb is 32 BUN 20 and creatinine 1.25 and blood sugar 117 lactic acid 1.7 Troponin level 0.352, 0.305 and 0.275 proBNP 16,900, albumin 4.5 Influenza A, B, RSV and COVID-19 PCR not detected. 24-hour interval change 09/30/2023 Patient is seen and evaluated in room at bedside; cussed with nursing staff; patient's family is concerned about some wheezing and chest congestion Vital signs are reviewed and are stable with blood pressure 114/56, O2 saturation 97% on 2 L and respirations 16 Blood work reveals WBC of 6.4, hemoglobin of 13.2 and platelet count of 199, sodium 131, potassium 4.1, BUNs/creatinine of 26/0.92 with CRP of 2.4 and BNP of 5250 Cardiology on board for acute exacerbation CHF and patient has been transition to oral Lasix --Patient is status post cardiac catheterization which revealed mild three- vessel coronary artery disease and medical treatment is recommended -We will order a chest x-ray and procalcitonin; further recommendations once results are available Objective - Vital Signs Vital signs: Vital Signs Temp 97.7 F 09/30/23 04:00 Pulse 60 09/30/23 08:47 Resp 16 09/30/23 08:00 BP 119/56 09/30/23 08:00 Pulse Ox 96 09/30/23 08:28 FiO2 Intake & Output 09/29/23 09/30/23 09/30/23 18:59 06:59 18:59 Intake Total 150 Output Total 650 550 Balance -500 -550 Weight 69.3 kg Intake: IV 150 Output: Urine 650 550 Other: Voiding Method External Catheter External Catheter # Voids 1 - Exam Patient is sitting up in the bed comfortably, no acute distress, awake alert and oriented.. Elderly appearing, ill-appearing HEENT: Normocephalic. Neck is supple. Pupils reactive. Nostrils clear. Oral cavity is moist. Neck reveals no JVD, carotid bruits, or thyromegaly. CHEST EXAMINATION: Trachea is central. Symmetrical expansion. Bilateral bronchial sounds and minimal expiratory wheeze. Nonlabored breathing. No crackles.. CARDIAC: S1, S2 muffled ABDOMEN: Soft. Thin, bowel sounds normal. No organomegaly. No abdominal bruits. Extremities: Bilateral lower extremity 2+ edema with some improvement noted. No clubbing or cyanosis Neurologically awake, alert, oriented x3 with well-coordinated movements. No focal deficits noted, diffusely weak Skin: No rash or skin lesions. Psychiatric: Cooperative. Non-suicidal Musculoskeletal: No joint swelling or deformity. Normal range of motion. - Labs CBC & Chem 7: 09/30/23 07:03 09/30/23 06:58 Labs: Abnormal Lab Results - Last 24 Hours (Table) 09/29/23 09/29/23 09/30/23 Range/Units 09:37 15:10 06:58 Sodium 132 L 134 L 131 L (137-145) mmol/L Potassium 3.4 L (3.5-5.1) mmol/L Chloride 95 L 96 L 97 L (98-107) mmol/L Carbon Dioxide 33 H 35 H (22-30) mmol/L BUN 28 H 30 H 26 H (7-17) mg/dL Creatinine 1.10 H (0.52-1.04) mg/dL Microbiology - Last 24 Hours (Table) 09/26/23 13:19 Blood Culture - Preliminary Blood 09/26/23 08:50 Blood Culture - Preliminary Blood Assessment and Plan Assessment: Shortness of breath and cough likely due to acute CHF exacerbation, acute on chronic systolic dysfunction Acute hypoxic respiratory failure secondary to above Elevated troponin level, likely secondary to type II [place] Nonischemic cardiomyopathy Chronic atrial fibrillation on anticoagulation with Eliquis Chronic bronchial asthma Hypertension History of hyperlipidemia History of valvular heart disease with severe mitral regurgitation, moderate AR, moderate tricuspid regurgitation, status post stress test showing areas of concern and possible old infarct. Tentatively scheduled for cardiac catheterization 09/29/2023 History of CVA DVT prophylaxis. Patient is already on full anticoagulation GI prophylaxis Full code Plan: Patient will be continued on telemetry monitoring. Follow-up serial troponins. Likely type II [place] and cardiology following planning on cardiac catheterization on 09/29/2023 as patient underwent Lexiscan which is showing some areas of old infarct and further concerns of ischemia. Continue IV Lasix for another 24 hours and will monitor kidney functions and electrolytes. Patient reports feeling her shortness of breath is slightly improved with the Lasix Continue with breathing inhalational treatments and supplemental oxygen. Wean FiO2 as tolerated. Currently continues on 2 L and reports does not wear any oxygen outpatient Home medications have been resumed Patient will be n.p.o. at midnight for possible cardiac catheterization per cardiology Patient with generalized weakness, may need PT/OT therapy evaluation Due to multiple complex medical issues, prognosis is guarded
[2023-09-30] MEDS: FUROSEMIDE 10 MG/ML 4 ML VIAL IV STA (17:17)
[2023-10-01 08:35] LABS: African American GFR (CKD) 61 (>60 ml/min/1.73 sqM); Anion Gap 7 mmol/L; Blood Urea Nitrogen 26 mg/dL (7-17); Calcium 8.5 mg/dL (8.4-10.2); Carbon Dioxide 30 mmol/L (22-30); Chloride 97 mmol/L (98-107); Glucose 80 mg/dL (74-99); Non-African American GFR(CKD) 53 (>60 ml/min/1.73 sqM); Potassium 3.7 mmol/L (3.5-5.1); Sodium 134 mmol/L (137-145)
--- NOTE | 2023-10-01 11:58 | P.PN ---
Subjective Progress Note Date: 10/01/23 History of present illness: This is an 88-year-old female patient of Dr. Espinosa with past medical history of chronic permanent atrial fibrillation on anticoagulation with Eliquis, nonischemic cardiomyopathy with EF of 32 percent, valvular heart disease with severe MR, mild to moderate AR, moderate TR, hypertension, hyperlipidemia, chronic kidney disease. We have been asked to evaluate the patient for non-ST elevated myocardial infarction. Patient presented to the hospital due to cough with clear to yellow sputum production for the past couple of days. Shortness of breath worsened the previous evening. No chest pain or discomfort. Cough has improved since here. She thinks lasix may have helped her feel better. Symptoms started on Monday and became worse by Monday. She has been on Medrol Dosepak and Levaquin since Monday. Patient has been started on IV Lasix 20 mg every 12 hours, Nitropaste. EKG atrial fibrillation Chest x-ray: #1 focal airspace consolidation suspected in the left base. #2 COPD with cardiomegaly and slight worsening interstitial changes. Correlate for CHF with slight worsening pulmonary vascular congestion. Left base underpenetrated and not well assessed. CBC is unremarkable. BUN 27 creatinine 1.19. Lactic acid 1.8. Troponin 0.352, 0.305, 0.275. proBNP 16,900. Procalcitonin 0.08. Influenza A, influenza B, RSV, COVID-19 not detected. Home cardiac medications: Eliquis 2.5 mg twice daily, Lipitor 40 mg at bedtime, Coreg 3.125 mg twice daily, Jardiance 10 mg daily, Lasix 20 mg daily, Aldactone 12.5 mg every 48 hours, valsartan 80 mg daily. Echocardiogram performed on 09/14/2022 in the office revealed EF of 32%, moderate TR, mild to moderate AR, severe MR. Cardiac catheterization history in 2005 EF was 50% with minimal CAD. 09/27 patient seen and examined. Patient had echocardiogram which shows EF 35% with global hypokinesis however additionally underwent Lexiscan stress test where she had large area of fixed anterior defect however also reversible inferolateral perfusion defect. She additionally got more short of breath after the stress test and has not been feeling her normal self. Heart rates controlled in the 80s to 90s. 09/29 Patient underwent MPI that showed evidence of ischemia. Yesterday, patient underwent cardiac catheterization with Dr. Espinosa which revealed calcified thoracic aorta, mild triple-vessel disease, right dominance, normal LVEDP. Recommendations for aggressive coronary risk factor modification. Patient is seen today in follow-up. She states she is feeling congested with a cough and sputum production. She is noted to have more wheezing today. She is asking for a pulmonary medicine consult. Patient is currently on oral Lasix. 09/30 Patient denies having any chest pain. She states she still has cough which is concerning and daughter has requested pulmonary consult. Patient is on her normal nebulizers/inhalers. Blood pressure 115/59, heart rate in the 60s, pulse ox 96% on 1 L nasal cannula. Repeat blood work reveals sodium 134, potassium 3.7, creatinine 0.97 and BUN 26. Chest x-ray performed yesterday revealed bibasilar opacities persist, left greater than right. Physical examination: Gen: This is an 88-year-old female in no acute distress VS: reviewed HEENT: Head is atraumatic, normocephalic. Pupils equal, round. Sclerae is anicteric. LUNGS: Few scattered bilateral expiratory wheeze. No intercostal retractions. HEART: Regular rate and rhythm. 2/6 murmur. EXTREMITIES: No lower extremity edema. No calf tenderness. NEUROLOGICAL: Patient is awake, alert and oriented x3. Assessment: Acute hypoxic respiratory failure Acute on chronic systolic heart failure Elevated troponin most likely type II CT, ruled out non-ST elevated CT NHx of nonischemic cardiomyopathy Chronic permanent atrial fibrillation rate controlled Hypertension Hyperlipidemia Valvular heart disease with severe MR, moderate AR, moderate TR Plan: Continue current cardiac medications At the time of discharge, patient may follow-up with Dr. Espinosa in 1 to 2 weeks. Nurse practitioner note has been reviewed, I agree with documented findings and plan of care. Patient was seen and examined. Objective - Vital Signs Vital signs: Vital Signs Temp 97.3 F L 10/01/23 08:15 Pulse 65 10/01/23 08:15 Resp 19 10/01/23 08:25 BP 118/56 10/01/23 08:15 Pulse Ox 94 L 10/01/23 08:15 FiO2 Intake & Output 09/30/23 10/01/23 10/01/23 18:59 06:59 18:59 Intake Total 118 Output Total 800 Balance 118 -800 Weight 67 kg Intake: Oral 118 Output: Urine 800 Other: Voiding Method External Catheter External Catheter External Catheter - Labs CBC & Chem 7: 09/30/23 07:03 10/01/23 06:17 Labs: Abnormal Lab Results - Last 24 Hours (Table) 09/30/23 10/01/23 Range/Units 06:58 06:17 Sodium 134 L (137-145) mmol/L Chloride 97 L (98-107) mmol/L BUN 26 H (7-17) mg/dL C-Reactive Protein 2.4 H (<1.0) mg/dL Microbiology - Last 24 Hours (Table) 09/29/23 21:29 Gram Stain - Preliminary Sputum
[2023-10-01] MEDS: FUROSEMIDE 10 MG/ML 4 ML VIAL IV STA (12:05)
--- NOTE | 2023-10-01 15:28 | P.PN ---
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 Patient states she will she has been having cough and clear to yellow sputum production for the past 3 to 4 days. Patient was also having shortness of breath last night. Her symptoms worsened this morning which made her to come to ER. Patient was seen by her primary care physician and was started on Medrol Dosepak and Levaquin. Patient has been taking Levaquin since Monday and started Medrol Dosepak this morning. Denied any fever or chills. No nausea vomiting abdominal pain or diarrhea. No complaints of chest pain. Patient also noticed her legs are not slightly swollen than usual. On admission blood pressure 117/63 pulse 76 respiration 20 and pulse ox 93% on room air. Chest x-ray showed focal airspace consolidation suspected in the left base. No pleural effusion or pneumothorax. EKG showed atrial fibrillation, low QRS voltage in precordial leads Laboratory test showed WBC 7.4 hemoglobin 14.9 and platelets 202 Sodium 136 potassium 4.8 chloride 99 bicarb is 32 BUN 20 and creatinine 1.25 and blood sugar 117 lactic acid 1.7 Troponin level 0.352, 0.305 and 0.275 proBNP 16,900, albumin 4.5 Influenza A, B, RSV and COVID-19 PCR not detected. 24-hour interval change 09/30/2023 Patient is seen and evaluated in room at bedside; cussed with nursing staff; patient's family is concerned about some wheezing and chest congestion Vital signs are reviewed and are stable with blood pressure 114/56, O2 saturation 97% on 2 L and respirations 16 Blood work reveals WBC of 6.4, hemoglobin of 13.2 and platelet count of 199, sodium 131, potassium 4.1, BUNs/creatinine of 26/0.92 with CRP of 2.4 and BNP of 5250 Cardiology on board for acute exacerbation CHF and patient has been transition to oral Lasix --Patient is status post cardiac catheterization which revealed mild three- vessel coronary artery disease and medical treatment is recommended -We will order a chest x-ray and procalcitonin; further recommendations once results are available 10/01/2023 Patient is seen and evaluated with daughter at bedside; patient and family reports marked improvement in the last 24 hours Vital signs are reviewed and stable -Chest x-ray completed yesterday does not reveal any acute pulmonary process; WBC and procalcitonin within normal limits; BNP is elevated but trending down from admission -- Will order an extra dose of Lasix 40 mg IV times -- Await PT/OT evaluation on discharge recommendations Objective - Vital Signs Vital signs: Vital Signs Temp 97.3 F L 10/01/23 08:15 Pulse 68 10/01/23 10:50 Resp 19 10/01/23 08:25 BP 118/56 10/01/23 08:15 Pulse Ox 94 L 10/01/23 08:15 FiO2 Intake & Output 09/30/23 10/01/23 10/01/23 18:59 06:59 18:59 Intake Total 118 240 Output Total 800 Balance 118 -800 240 Weight 67 kg Intake: Oral 118 240 Output: Urine 800 Other: Voiding Method External Catheter External Catheter External Catheter # Voids 1 # Bowel Movements 1 - Exam Patient is sitting up in the bed comfortably, no acute distress, awake alert and oriented.. Elderly appearing, ill-appearing HEENT: Normocephalic. Neck is supple. Pupils reactive. Nostrils clear. Oral cavity is moist. Neck reveals no JVD, carotid bruits, or thyromegaly. CHEST EXAMINATION: Trachea is central. Symmetrical expansion. Bilateral bro nchial sounds and minimal expiratory wheeze. Nonlabored breathing. No crackles.. CARDIAC: S1, S2 muffled ABDOMEN: Soft. Thin, bowel sounds normal. No organomegaly. No abdominal bruits. Extremities: Bilateral lower extremity 2+ edema with some improvement noted. No clubbing or cyanosis Neurologically awake, alert, oriented x3 with well-coordinated movements. No focal deficits noted, diffusely weak Skin: No rash or skin lesions. Psychiatric: Cooperative. Non-suicidal Musculoskeletal: No joint swelling or deformity. Normal range of motion. - Labs CBC & Chem 7: 09/30/23 07:03 10/01/23 06:17 Labs: Abnormal Lab Results - Last 24 Hours (Table) 09/30/23 10/01/23 Range/Units 06:58 06:17 Sodium 134 L (137-145) mmol/L Chloride 97 L (98-107) mmol/L BUN 26 H (7-17) mg/dL C-Reactive Protein 2.4 H (<1.0) mg/dL Microbiology - Last 24 Hours (Table) 09/29/23 21:29 Gram Stain - Preliminary Sputum Assessment and Plan Assessment: Shortness of breath and cough likely due to acute CHF exacerbation, acute on chronic systolic dysfunction Acute hypoxic respiratory failure secondary to above Elevated troponin level, likely secondary to type II [place] Nonischemic cardiomyopathy Chronic atrial fibrillation on anticoagulation with Eliquis Chronic bronchial asthma Hypertension History of hyperlipidemia History of valvular heart disease with severe mitral regurgitation, moderate AR, moderate tricuspid regurgitation, status post stress test showing areas of concern and possible old infarct. Tentatively scheduled for cardiac catheterization 09/29/2023 History of CVA DVT prophylaxis. Patient is already on full anticoagulation GI prophylaxis Full code Plan: Patient will be continued on telemetry monitoring. Follow-up serial troponins. Likely type II CO and cardiology following planning on cardiac catheterization on 09/29/2023 as patient underwent Lexiscan which is showing some areas of old infarct and further concerns of ischemia. Continue IV Lasix for another 24 hours and will monitor kidney functions and electrolytes. Patient reports feeling her shortness of breath is slightly improved with the Lasix Continue with breathing inhalational treatments and supplemental oxygen. Wean FiO2 as tolerated. Currently continues on 2 L and reports does not wear any oxygen outpatient Home medications have been resumed Patient will be n.p.o. at midnight for possible cardiac catheterization per cardiology Patient with generalized weakness, may need PT/OT therapy evaluation Due to multiple complex medical issues, prognosis is guarded
[2023-10-02 10:49] LABS: Basophils # (A) 0.1 k/uL (0-0.2); Basophils % (A) 1 %; Eosinophils # (A) 0.1 k/uL (0-0.7); Eosinophils % (A) 2 %; HCT 44.6 % (34.0-46.0); HGB 14.1 gm/dL (11.4-16.0); Lymphocytes # (A) 1.2 k/uL (1.0-4.8); Lymphocytes % (A) 17 %; MCH 30.7 pg (25.0-35.0); MCHC 31.7 g/dL (31.0-37.0); MCV 96.9 fL (80.0-100.0); Mean Platelet Volume 7.5; Monocytes # (A) 0.6 k/uL (0-1.0); Monocytes % (A) 8 %; Neutrophils # (A) 5.1 k/uL (1.3-7.7); Neutrophils % (A) 71 %; Platelet Count 272 k/uL (150-450); RBC 4.61 m/uL (3.80-5.40); RDW 12.3 % (11.5-15.5); WBC 7.1 k/uL (3.8-10.6)
[2023-10-02 11:09] LABS: African American GFR (CKD) 55 (>60 ml/min/1.73 sqM); Anion Gap 6 mmol/L; Blood Urea Nitrogen 29 mg/dL (7-17); Calcium 9.3 mg/dL (8.4-10.2); Carbon Dioxide 34 mmol/L (22-30); Chloride 95 mmol/L (98-107); Glucose 87 mg/dL (74-99); Non-African American GFR(CKD) 48 (>60 ml/min/1.73 sqM); Potassium 3.6 mmol/L (3.5-5.1); Sodium 135 mmol/L (137-145)
[2023-10-02] MEDS: REGADENOSON 0.4 MG/5 ML SYRINGE IV ONE (13:13)
--- NOTE | 2023-10-02 14:34 | P.PN ---
Subjective HISTORY OF PRESENT ILLNESS: This is an 88-year-old female patient of Dr. Espinosa with past medical history of chronic permanent atrial fibrillation on anticoagulation with Eliquis, nonischemic cardiomyopathy with EF of 32 percent, valvular heart disease with severe MR, mild to moderate AR, moderate TR, hypertension, hyperlipidemia, chronic kidney disease. We have been asked to evaluate the patient for non-ST elevated myocardial infarction. Patient presented to the hospital due to cough with clear to yellow sputum production for the past couple of days. Shortness of breath worsened the previous evening. No chest pain or discomfort. Cough has improved since here. She thinks lasix may have helped her feel better. Symptoms started on Monday and became worse by Monday. She has been on Medrol Dosepak and Levaquin since Monday. Patient has been started on IV Lasix 20 mg every 12 hours, Nitropaste. EKG atrial fibrillation Chest x-ray: #1 focal airspace consolidation suspected in the left base. #2 COPD with cardiomegaly and slight worsening interstitial changes. Correlate for CHF with slight worsening pulmonary vascular congestion. Left base underpenetrated and not well assessed. CBC is unremarkable. BUN 27 creatinine 1.19. Lactic acid 1.8. Troponin 0.352, 0.305, 0.275. proBNP 16,900. Procalcitonin 0.08. Influenza A, influenza B, RSV, COVID-19 not detected. Home cardiac medications: Eliquis 2.5 mg twice daily, Lipitor 40 mg at bedtime, Coreg 3.125 mg twice daily, Jardiance 10 mg daily, Lasix 20 mg daily, Aldactone 12.5 mg every 48 hours, valsartan 80 mg daily. Echocardiogram performed on 09/14/2022 in the office revealed EF of 32%, moderate TR, mild to moderate AR, severe MR. Cardiac catheterization history in 2005 EF was 50% with minimal CAD. 09/27 patient seen and examined. Patient had echocardiogram which shows EF 35% with global hypokinesis however additionally underwent Lexiscan stress test where she had large area of fixed anterior defect however also reversible inferolateral perfusion defect. She additionally got more short of breath after the stress test and has not been feeling her normal self. Heart rates controlled in the 80s to 90s. 09/29 Patient underwent MPI that showed evidence of ischemia. Yesterday, patient underwent cardiac catheterization with Dr. Espinosa which revealed calcified thoracic aorta, mild triple-vessel disease, right dominance, normal LVEDP. Recommendations for aggressive coronary risk factor modification. Patient is seen today in follow-up. She states she is feeling congested with a cough and sputum production. She is noted to have more wheezing today. She is asking for a pulmonary medicine consult. Patient is currently on oral Lasix. 09/30 Patient denies having any chest pain. She states she still has cough which is concerning and daughter has requested pulmonary consult. Patient is on her normal nebulizers/inhalers. Blood pressure 115/59, heart rate in the 60s, pulse ox 96% on 1 L nasal cannula. Repeat blood work reveals sodium 134, potassium 3.7, creatinine 0.97 and BUN 26. Chest x-ray performed yesterday revealed bibasilar opacities persist, left greater than right. 10/02/2023 Patient examined this morning at the bedside. Patient states that she feels very tired today. She reports mild chest tightness. She reports shortness of breath although improving from yesterday. Vital signs are stable. Remote telemetry reveals atrial fibrillation with controlled ventricular rate. Echocardiogram completed revealing ejection fraction 30 to 35% PHYSICAL EXAM: VITAL SIGNS: Reviewed. GENERAL: Well-developed in no acute distress. NECK: Supple. No JVD or thyromegaly LUNGS: Respirations even and unlabored. Lungs essentially clear to auscultation bilaterally. HEART: Irregular rate and rhythm. S1 and S2 heard. Systolic murmur noted. EXTREMITIES: Normal range of motion. No clubbing or cyanosis. Peripheral pulses intact. No lower extremity edema ASSESSMENT: Acute hypoxic respiratory failure Acute on chronic systolic heart failure, 30 to 35% Elevated troponin, status post abnormal stress test, status post cardiac catheterization revealing mild triple-vessel disease Hx of nonischemic cardiomyopathy Permanent atrial fibrillation with controlled ventricular rate Hypertension Hyperlipidemia Valvular heart disease with severe MR, moderate AR, moderate TR PLAN: Continue current cardiac medications Continue anticoagulation with Eliquis Continue telemetry monitoring Plan for ECF at discharge Further recommendations pending patient course Patient to follow-up postdischarge with Dr. Espinosa Nurse practitioner note has been reviewed by physician. Signing provider agrees with the documented findings, assessment, and plan of care documented by W[employer]LESS CE[employer]ULAR TECHNICIAN as a scribe. Objective - Vital Signs Vital signs: Vital Signs Temp 97.5 F L 10/02/23 08:00 Pulse 80 04/29/24 12:10 Resp 16 10/02/23 11:58 BP 112/62 10/02/23 11:33 Pulse Ox 92 L 10/02/23 11:33 FiO2 Intake & Output 10/01/23 10/02/23 10/02/23 18:59 06:59 18:59 Intake Total 240 118 600 Output Total 850 300 Balance -610 -182 600 Weight 67.3 kg Intake: Oral 240 118 600 Output: Urine 850 300 Other: Voiding Method External Catheter Bedside Commode Bedside Commode External Catheter # Voids 1 1 # Bowel Movements 1 1 - Labs CBC & Chem 7: 10/02/23 10:26 10/02/23 10:26 Labs: Abnormal Lab Results - Last 24 Hours (Table) 10/02/23 Range/Units 10:26 Sodium 135 L (137-145) mmol/L Chloride 95 L (98-107) mmol/L Carbon Dioxide 34 H (22-30) mmol/L BUN 29 H (7-17) mg/dL Creatinine 1.06 H (0.52-1.04) mg/dL Microbiology - Last 24 Hours (Table) 09/29/23 21:29 Gram Stain - Final Sputum Sputum Culture - Final 09/26/23 13:19 Blood Culture - Final Blood 09/26/23 08:50 Blood Culture - Final Blood
[2023-10-02] MEDS ORDERED: AZITHROMYCIN 500 MG in SODIUM CHLORIDE 0.9% 250 ML IVPB SCH (15:00)
[2023-10-02] MEDS: AZITHROMYCIN 500 MG in SODIUM CHLORIDE 0.9% 250 ML IVPB SCH (15:21)
--- NOTE | 2023-10-03 02:33 | P.PN ---
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 Patient states she will she has been having cough and clear to yellow sputum production for the past 3 to 4 days. Patient was also having shortness of breath last night. Her symptoms worsened this morning which made her to come to ER. Patient was seen by her primary care physician and was started on Medrol Dosepak and Levaquin. Patient has been taking Levaquin since Monday and started Medrol Dosepak this morning. Denied any fever or chills. No nausea vomiting abdominal pain or diarrhea. No complaints of chest pain. Patient also noticed her legs are not slightly swollen than usual. On admission blood pressure 117/63 pulse 76 respiration 20 and pulse ox 93% on room air. Chest x-ray showed focal airspace consolidation suspected in the left base. No pleural effusion or pneumothorax. EKG showed atrial fibrillation, low QRS voltage in precordial leads Laboratory test showed WBC 7.4 hemoglobin 14.9 and platelets 202 Sodium 136 potassium 4.8 chloride 99 bicarb is 32 BUN 20 and creatinine 1.25 and blood sugar 117 lactic acid 1.7 Troponin level 0.352, 0.305 and 0.275 proBNP 16,900, albumin 4.5 Influenza A, B, RSV and COVID-19 PCR not detected. 09/27/2023 Patient seen and evaluated in follow-up and reports to feeling about the same [facility] admission. Patient continues on 2 to 3 L of oxygen via nasal cannula and reports does not wear oxygen outpatient. Patient continued on IV Lasix having some minimal improvement in breathing although continues with cough and congestion. Patient currently n.p.o. while awaiting cardiac evaluation in the event of possible intervention. 2D echo ordered and pending and patient tentatively being scheduled for stress test within the next 24 hours. Patient is afebrile with no reports of chest pain or palpitations. Patient denies nausea or vomiting and currently reports to feeling somewhat hungry. Patient with overall weakness, may need PT/OT therapy evaluation. 09/28/2023 Patient is seen and evaluated in follow-up this morning reporting feeling slightly improved. Patient underwent Lexiscan with cardiology following showing some areas of possibly an old infarct and also concerns of reversible ischemia and is discussing possible cardiac catheterization on 09/29/2023 with cardiology. Patient will continue on current medication regimen and symptomatic support. Patient continues on 2 L via nasal cannula reports her breathing is minimally improved. Patient is coughing up some green mucus and procalcitonin was normal. Will make Mucinex scheduled. Patient is afebrile and denies chest pain or palpitations. Patient with no reported nausea or vomiting and has been tolerating diet. Needs encouragement with meals and does not eat very much per family at the bedside. Recommend sitting up in the chair and increased activity as tolerated 24-hour interval change 09/30/2023 Patient is seen and evaluated in room at bedside; cussed with nursing staff; patient's family is concerned about some wheezing and chest congestion Vital signs are reviewed and are stable with blood pressure 114/56, O2 saturation 97% on 2 L and respirations 16 Blood work reveals WBC of 6.4, hemoglobin of 13.2 and platelet count of 199, sodium 131, potassium 4.1, BUNs/creatinine of 26/0.92 with CRP of 2.4 and BNP of 5250 Cardiology on board for acute exacerbation CHF and patient has been transition to oral Lasix --Patient is status post cardiac catheterization which revealed mild three- vessel coronary artery disease and medical treatment is recommended -We will order a chest x-ray and procalcitonin; further recommendations once results are available 10/01/2023 Patient is seen and evaluated with daughter at bedside; patient and family reports marked improvement in the last 24 hours Vital signs are reviewed and stable -Chest x-ray completed yesterday does not reveal any acute pulmonary process; WBC and procalcitonin within normal limits; BNP is elevated but trending down from admission -- Will order an extra dose of Lasix 40 mg IV times -- Await PT/OT evaluation on discharge recommendations 10/02/2023 Patient is seen and evaluated in follow-up this morning with no acute overnight issues overnight. Patient continues with a productive cough and was initially greenish and reports is now yellow per patient. Procalcitonin was negative at 0.08 and sputum culture showing no growth. Will empirically give a short course of Ceftin as patient was started on Zithromax although started reporting pain and burning. Adjustments to medications per cardiology recommend maximizing medical management. Patient is currently room air and reports some improvements in shortness of breath. Patient with significant weakness and prolonged hospitalization would benefit from ECF. Family is agreeable and working with case management regarding discharge planning. Review of systems: Constitutional: No reports of fatigue, fever, or chills Cardiovascular: No reports of chest pain or palpitations Respiratory: reports of shortness of breath that is improving, reports continued cough with phlegm production GI: No reports of nausea or vomiting, no reports of diarrhea, not much of an appetite although eating a little more : No reports of dysuria or retention Neurovascular: reports of generalized weakness All medications have been reviewed PHYSICAL EXAMINATION: Patient is sitting up in the bed comfortably, no acute distress, awake alert and oriented.. Elderly appearing, ill-appearing HEENT: Normocephalic. Neck is supple. Pupils reactive. Nostrils clear. Oral cavity is moist. Neck reveals no JVD, carotid bruits, or thyromegaly. CHEST EXAMINATION: Trachea is central. Symmetrical expansion. Bilateral bronchial sounds and congestion on exam, improving. Nonlabored breathing. No crackles.. CARDIAC: S1, S2 muffled ABDOMEN: Soft. Thin, bowel sounds normal. No organomegaly. No abdominal bruits. Extremities: Bilateral lower extremity 1+ edema with some improvement noted. No clubbing or cyanosis Neurologically awake, alert, oriented x3 with well-coordinated movements. No focal deficits noted, diffusely weak Skin: No rash or skin lesions. Psychiatric: Cooperative. Non-suicidal Musculoskeletal: No joint swelling or deformity. Normal range of motion. Assessment: Shortness of breath and cough likely due to acute CHF exacerbation, acute on chronic systolic dysfunction Acute hypoxic respiratory failure secondary to above, improved, currently on room air Elevated troponin level, likely secondary to type II NE Nonischemic cardiomyopathy Chronic atrial fibrillation on anticoagulation with Eliquis Chronic bronchial asthma Hypertension History of hyperlipidemia History of valvular heart disease with severe mitral regurgitation, moderate AR, moderate tricuspid regurgitation, status post stress test showing areas of concern and possible old infarct. Status post cardiac catheterization 09/29/2023 recommending maximizing medical management History of CVA DVT prophylaxis. Patient is already on full anticoagulation GI prophylaxis Full code Plan: Patient will be continued on telemetry monitoring. cardiology following and patient is status post cardiac catheterization on 09/29/2023 recommending maximizing medical management Patient has been transition to oral Lasix Continue with breathing inhalational treatments and supplemental oxygen. Currently room air Patient reports continued sputum production although is now yellow from previous screen. Procalcitonin was negative at 0.08 and sputum culture is negative as well. Will empirically start ceftriaxone for 3 days. Attempted Zithromax although patient started experiencing pain and burning and abnormal feeling and was discontinued Patient with significant weakness and prolonged hospitalization will likely benefit from ECF for continued strength and mobility as patient was independent prior to this. Family is agreeable and working with case management regarding discharge planning due to multiple complex medical issues, prognosis is guarded Possible discharge in the next 24 to 48 hours The impression and plan of care has been dictated by Trisha Scruggs, Nurse Practitioner as directed. Dr. Adelso MD I have performed a history and examination and MDM of this patient, discussed the same with the dictator, and agree with the dictator's assessment and plan as written ,documented as a scribe. Based on total visit time, I have performed more than 50% of the visit. Objective - Vital Signs Vital signs: Vital Signs Temp 98.3 F 10/02/23 03:36 Pulse 87 10/02/23 08:55 Resp 18 10/02/23 08:55 BP 120/71 10/02/23 03:36 Pulse Ox 95 10/02/23 08:49 FiO2 Intake & Output 10/01/23 10/02/23 10/02/23 18:59 06:59 18:59 Intake Total 240 118 Output Total 850 300 Balance -610 -182 Weight 67.3 kg Intake: Oral 240 118 Output: Urine 850 300 Other: Voiding Method External Catheter Bedside Commode External Catheter # Voids 1 # Bowel Movements 1 - Labs CBC & Chem 7: 10/02/23 10:26 10/02/23 10:26 Labs: Microbiology - Last 24 Hours (Table) 09/29/23 21:29 Gram Stain - Final Sputum Sputum Culture - Final 09/26/23 13:19 Blood Culture - Final Blood 09/26/23 08:50 Blood Culture - Final Blood
[2023-10-03 10:21] VITALS: TEMP 97.9
--- NOTE | 2023-10-03 12:06 | P.DS ---
Providers Date of admission: 09/26/23 13:07 Expected date of discharge: 10/03/23 Attending physician: Mikayla Yoon Consults: 09/26/23 13:04 Consult Physician Urgent Consulting Provider: [facility] Consult Reason/Comments: NSTEMI Do you want consulting provider notified?: Yes Primary care physician: Adamaris Pascual Hospital Course: Final diagnosis Shortness of breath and cough likely due to acute CHF exacerbation, acute on chronic systolic dysfunction Acute hypoxic respiratory failure secondary to above, improved, currently on room air Elevated troponin level, likely secondary to type II DC Nonischemic cardiomyopathy Chronic atrial fibrillation on anticoagulation with Eliquis Chronic bronchial asthma Hypertension History of hyperlipidemia History of valvular heart disease with severe mitral regurgitation, moderate AR, moderate tricuspid regurgitation, status post stress test showing areas of concern and possible old infarct. Status post cardiac catheterization 09/29/2023 recommending maximizing medical management History of CVA DVT prophylaxis. Patient is already on full anticoagulation GI prophylaxis Full code Discharge disposition Patient is being discharged in a stable condition with guarded prognosis to [facility]. Patient will follow-up with Dr. Adamaris Pascual in the outpatient setting upon discharge. Patient is to continue with current medications and close outpatient follow-up with cardiology as well as pulmonary as scheduled. Patient to continue 3 days of Ceftin 500 mg twice daily on discharge. Total time taken is greater than 35 minutes. Hospital course This is a 88-year-old female who was recently admitted with shortness of breath and cough and congestion with cardiology following. Patient underwent stress test which was abnormal and underwent cardiac catheterization recommending maximizing medical management. Patient is acute on chronic systolic dysfunction and also had some acute hypoxic respiratory failure secondary to this. Patient has improved and maintained on oral Lasix and currently maintaining room air. Patient with significant weakness and prolonged hospitalization will benefit from ECF for continued strength and mobility. Family is agreeable and patient will be going to [place]. Patient did have some cough and congestion and had some outpatient treatments from primary care provider with oral antibiotics and steroids along with Mucinex with no significant improvement. Sputum culture was obtained and negative as well as procalcitonin. Patient having some mild bronchitis will add Ceftin for 3 days to complete the course. Encouraged oral intake and small frequent meals. Recommend fluid restrictions of 45 ounces throughout the day and continue with heart healthy diet. Patient has been cleared by consultations. Please refer to consultation notes for further HPI. Patient needs outpatient follow-up with pulmonary as well as cardiology on discharge. Currently no reports of chest pain, no worsening shortness of breath, or palpitations. Patient is afebrile. No reports of nausea or vomiting and patient is tolerating diet. Patient will be going to [facility] bed today. Guarded prognosis and high risk for readmission given patient's age and significant comorbidities Physical exam: Gen: This is a 88-year-old female who is awake, alert and oriented x 3, well-d eveloped, well-nourished, elderly appearing HEENT: Head is atraumatic, normocephalic. Pupils equal, round. Sclerae is anicteric. NECK: Supple. No JVD. No lymphadenopathy. No thyromegaly. LUNGS: Diminished breath sounds bilaterally otherwise clear to auscultation. No wheezes or rhonchi. Faint dry cough on exam. No intercostal retractions. HEART: S1, S2 are muffled ABDOMEN: Soft. Bowel sounds are present. No masses. No tenderness. EXTREMITIES: No pedal edema. No calf tenderness. NEUROLOGICAL: Patient is awake, alert and oriented x3. Cranial nerves 2 through 12 are grossly intact. Diffusely weak Please refer to medication reconciliation sheet for a list of medications. The impression and plan of care has been dictated by Trisha Scruggs, Nurse Practitioner as directed. Dr. Adelso MD I have performed a history and examination and MDM of this patient, discussed the same with the dictator, and agree with the dictator's assessment and plan as written ,documented as a scribe. Based on total visit time, I have performed more than 50% of the visit. Patient Condition at Discharge: Fair Plan - Discharge Summary Discharge Rx Participant: Yes New Discharge Prescriptions: New Furosemide [Lasix] 20 mg PO BID@0900,1600 tab guaiFENesin [Mucinex] 600 mg PO Q12HR tab cefUROXime axetiL [Ceftin] 500 mg PO BID 3 Days #6 tab Nitroglycerin Sl Tabs [Nitrostat] 0.4 mg SUBLINGUAL Q5M PRN tab PRN Reason: Chest Pain Continue Atorvastatin [Lipitor] 40 mg PO HS Albuterol Nebulized [Ventolin Nebulized] 2.5 mg INHALATION RT-BID Spironolactone [Aldactone] 12.5 mg PO Q48H Apixaban [Eliquis] 2.5 mg PO BID carvediloL [Coreg] 3.125 mg PO BID Empagliflozin [Jardiance] 10 mg PO DAILY Valsartan [Diovan] 80 mg PO DAILY SILVER sulfADIAZINE Cream [Silvadene 1% Cream] 1 applic TOPICAL BID Fluticasone Propion/Salmeterol [Advair Hfa 115-21 Mcg Inhaler] 2 puff INHALATION RT-BID Discontinued Furosemide [Lasix] 20 mg PO DAILY Levofloxacin [Levaquin] 500 mg PO DAILY methylPREDNISolone [Medrol Dose Pack] See Taper PO DIRECTED guaiFENesin [Mucinex] 600 mg PO Q12H Discharge Medication List Albuterol Nebulized [Ventolin Nebulized] 2.5 mg INHALATION RT-BID 05/03/16 [History] Atorvastatin [Lipitor] 40 mg PO HS 05/03/16 [History] Spironolactone [Aldactone] 12.5 mg PO Q48H 05/03/16 [History] Apixaban [Eliquis] 2.5 mg PO BID 03/22/18 [History] carvediloL [Coreg] 3.125 mg PO BID 03/22/18 [History] Empagliflozin [Jardiance] 10 mg PO DAILY 09/26/23 [History] Fluticasone Propion/Salmeterol [Advair Hfa 115-21 Mcg Inhaler] 2 puff INHALATION RT-BID 09/26/23 [History] SILVER sulfADIAZINE Cream [Silvadene 1% Cream] 1 applic TOPICAL BID 09/26/23 [History] Valsartan [Diovan] 80 mg PO DAILY 09/26/23 [History] Furosemide [Lasix] 20 mg PO BID@0900,1600 tab 10/03/23 [Rx] Nitroglycerin Sl Tabs [Nitrostat] 0.4 mg SUBLINGUAL Q5M PRN tab 10/03/23 [Rx] cefUROXime axetiL [Ceftin] 500 mg PO BID 3 Days #6 tab 10/03/23 [Rx] guaiFENesin [Mucinex] 600 mg PO Q12HR tab 10/03/23 [Rx] Follow up Appointment(s)/Referral(s): Adamaris Pascual MD [Primary Care Provider] - 1-2 days [facility] [NON-STAFF] - Ambulatory/Diagnostic Orders: Basic Metabolic Panel [LAB.AMB] Time Frame: 3 Days, Location: None Selected Patient Instructions/Handouts: Heart Failure (DC), Low-Sodium Diet (DC) Activity/Diet/Wound Care/Special Instructions: Patient is going to [facility] bed Activity as tolerated Follow-up with primary care provider on discharge Follow-up with pulmonary outpatient Follow-up with cardiology outpatient Continue taking medications as prescribed Continue antibiotics for the next 3 days to complete the course Continue heart healthy diet Repeat BMP, magnesium in 2 to 3 days to monitor kidney functions and electrolytes Discharge Disposition: TRANSFER TO SNF/ECF
[2023-10-03 12:35] VITALS: BP 131/78; PULSE 56; RESP 18
--- NOTE | 2023-10-03 14:01 | P.PN ---
Subjective HISTORY OF PRESENT ILLNESS: This is an 88-year-old female patient of Dr. Espinosa with past medical history of chronic permanent atrial fibrillation on anticoagulation with Eliquis, nonischemic cardiomyopathy with EF of 32 percent, valvular heart disease with severe MR, mild to moderate AR, moderate TR, hypertension, hyperlipidemia, chronic kidney disease. We have been asked to evaluate the patient for non-ST elevated myocardial infarction. Patient presented to the hospital due to cough with clear to yellow sputum production for the past couple of days. Shortness of breath worsened the previous evening. No chest pain or discomfort. Cough has improved since here. She thinks lasix may have helped her feel better. Symptoms started on Monday and became worse by Monday. She has been on Medrol Dosepak and Levaquin since Monday. Patient has been started on IV Lasix 20 mg every 12 hours, Nitropaste. EKG atrial fibrillation Chest x-ray: #1 focal airspace consolidation suspected in the left base. #2 COPD with cardiomegaly and slight worsening interstitial changes. Correlate for CHF with slight worsening pulmonary vascular congestion. Left base underpenetrated and not well assessed. CBC is unremarkable. BUN 27 creatinine 1.19. Lactic acid 1.8. Troponin 0.352, 0.305, 0.275. proBNP 16,900. Procalcitonin 0.08. Influenza A, influenza B, RSV, COVID-19 not detected. Home cardiac medications: Eliquis 2.5 mg twice daily, Lipitor 40 mg at bedtime, Coreg 3.125 mg twice daily, Jardiance 10 mg daily, Lasix 20 mg daily, Aldactone 12.5 mg every 48 hours, valsartan 80 mg daily. Echocardiogram performed on 09/14/2022 in the office revealed EF of 32%, moderate TR, mild to moderate AR, severe MR. Cardiac catheterization history in 2005 EF was 50% with minimal CAD. 09/27 patient seen and examined. Patient had echocardiogram which shows EF 35% with global hypokinesis however additionally underwent Lexiscan stress test where she had large area of fixed anterior defect however also reversible inferolateral perfusion defect. She additionally got more short of breath after the stress test and has not been feeling her normal self. Heart rates controlled in the 80s to 90s. 09/29 Patient underwent MPI that showed evidence of ischemia. Yesterday, patient underwent cardiac catheterization with Dr. Espinosa which revealed calcified thoracic aorta, mild triple-vessel disease, right dominance, normal LVEDP. Recommendations for aggressive coronary risk factor modification. Patient is seen today in follow-up. She states she is feeling congested with a cough and sputum production. She is noted to have more wheezing today. She is asking for a pulmonary medicine consult. Patient is currently on oral Lasix. 09/30 Patient denies having any chest pain. She states she still has cough which is concerning and daughter has requested pulmonary consult. Patient is on her normal nebulizers/inhalers. Blood pressure 115/59, heart rate in the 60s, pulse ox 96% on 1 L nasal cannula. Repeat blood work reveals sodium 134, potassium 3.7, creatinine 0.97 and BUN 26. Chest x-ray performed yesterday revealed bibasilar opacities persist, left greater than right. 10/02/2023 Patient examined this morning at the bedside. Patient states that she feels very tired today. She reports mild chest tightness. She reports shortness of breath although improving from yesterday. Vital signs are stable. Remote telemetry reveals atrial fibrillation with controlled ventricular rate. Echocardiogram completed revealing ejection fraction 30 to 35% 10/03/2023 Patient examined this afternoon. She is sitting up in the chair. Patient denies chest pain or pressure. She denies shortness of breath. Vital signs are stable. Discharge plan is in place to [facility]. PHYSICAL EXAM: VITAL SIGNS: Reviewed. GENERAL: Well-developed in no acute distress. NECK: Supple. No JVD or thyromegaly LUNGS: Respirations even and unlabored. Lungs essentially clear to auscultation bilaterally. HEART: Irregular rate and rhythm. S1 and S2 heard. Systolic murmur noted. EXTREMITIES: Normal range of motion. No clubbing or cyanosis. Peripheral pulses intact. No lower extremity edema ASSESSMENT: Acute hypoxic respiratory failure Acute on chronic systolic heart failure, 30 to 35% Elevated troponin, status post abnormal stress test, status post cardiac c atheterization revealing mild triple-vessel disease Hx of nonischemic cardiomyopathy Permanent atrial fibrillation with controlled ventricular rate Hypertension Hyperlipidemia Valvular heart disease with severe MR, moderate AR, moderate TR PLAN: Continue current cardiac medications Continue anticoagulation with Eliquis Continue telemetry monitoring Patient is stable for discharge today to [facility] from a cardiology standpoint Patient to follow-up postdischarge with Dr. Espinosa Nurse practitioner note has been reviewed by physician. Signing provider agrees with the documented findings, assessment, and plan of care documented by [employer] as a scribe. Objective - Vital Signs Vital signs: Vital Signs Temp 97.9 F 10/03/23 08:20 Pulse 56 L 10/03/23 11:40 Resp 18 10/03/23 11:40 BP 131/78 10/03/23 11:40 Pulse Ox 96 10/03/23 11:40 FiO2 Intake & Output 10/02/23 10/03/23 10/03/23 18:59 06:59 18:59 Intake Total 960 476 Output Total 400 425 Balance 960 -400 51 Weight 70 kg 70 kg Intake: Oral 960 476 Output: Urine 400 425 Other: Voiding Method Bedside Commode Bedside Commode Bedside Commode # Voids 1 1 # Bowel Movements 1 1 - Labs CBC & Chem 7: 10/02/23 10:26 10/02/23 10:26
[2023-10-03 14:03] VITALS: BMI 25.7
== END 2023-10-03 14:22 | DRG 280 ==
LOC: EC 08:38 → 3SCARD 13:07
PROVIDERS: ADMIT Internal Medicine; ATTEND Internal Medicine
PROC: 4A02XM4 Measurement of Cardiac Total Activity, External Approach (ICD-10-PCS; 2023-09-28)
PROC: B2111ZZ Fluoroscopy of Multiple Coronary Arteries using Low Osmolar Contrast (ICD-10-PCS; 2023-09-29)
PROC: 4A023N7 Measurement of Cardiac Sampling and Pressure, Left Heart, Percutaneous Approach (ICD-10-PCS; principal; 2023-09-29 10:00)
DX: I13.0 Hypertensive heart and chronic kidney disease with heart failure and stage 1 through stage 4 chronic kidney disease, or unspecified chronic kidney disease (principal); I50.23 Acute on chronic systolic (congestive) heart failure; I21.A1 Myocardial infarction type 2; J96.01 Acute respiratory failure with hypoxia; I69.354 Hemiplegia and hemiparesis following cerebral infarction affecting left non-dominant side; I48.21 Permanent atrial fibrillation; I42.8 Other cardiomyopathies; Z79.01 Long term (current) use of anticoagulants; E78.5 Hyperlipidemia, unspecified; I25.10 Atherosclerotic heart disease of native coronary artery without angina pectoris; E11.22 Type 2 diabetes mellitus with diabetic chronic kidney disease; I70.0 Atherosclerosis of aorta; N18.9 Chronic kidney disease, unspecified; Z98.82 Breast implant status; Z79.899 Other long term (current) drug therapy; Z79.84 Long term (current) use of oral hypoglycemic drugs; I08.3 Combined rheumatic disorders of mitral, aortic and tricuspid valves
CPT/HCPCS: 36415; 71045; 71046; 78452; 80048; 80053; 80061; 83036; 83605; 83735; 83880; 84145; 84484; 85025; 85610; 85730; 86140; 87040; 87070; 87205; 87636; 93005; 93017; 93306; 93458; 94640; 94760; 96374; 96375; 99291

== ENCOUNTER 2023-10-17 08:25 | Observation (INO) | payer MEDICARE, BC ==
[2023-10-17 09:20] LABS: Basophils # (A) 0.1 k/uL (0-0.2); Basophils % (A) 1 %; Eosinophils # (A) 0.2 k/uL (0-0.7); Eosinophils % (A) 3 %; HCT 44.2 % (34.0-46.0); HGB 14.5 gm/dL (11.4-16.0); Lymphocytes # (A) 1.3 k/uL (1.0-4.8); Lymphocytes % (A) 26 %; MCH 32.1 pg (25.0-35.0); MCHC 32.8 g/dL (31.0-37.0); Mean Platelet Volume 7.6; Monocytes # (A) 0.4 k/uL (0-1.0); Monocytes % (A) 8 %; Neutrophils % (A) 58 %; Platelet Count 295 k/uL (150-450); RBC 4.51 m/uL (3.80-5.40); RDW 13.2 % (11.5-15.5); WBC 5.1 k/uL (3.8-10.6)
--- NOTE | 2023-10-17 09:30 | XR ---
EXAMINATION TYPE: XR chest 2V DATE OF EXAM: 10/17/2023 9:24 AM CLINICAL INDICATION:Female, 88 years old with history of Chest Pain; COMPARISON: Chest radiographs from 09/30/2023 TECHNIQUE: XR chest 2V Frontal and lateral views of the chest. FINDINGS: Lungs/Pleura: There is no evidence of pleural effusion, focal consolidation, or pneumothorax. Pulmonary vascularity: Unremarkable. Heart/mediastinum: Cardiomediastinal silhouette is enlarged and stable. Musculoskeletal: No acute osseous pathology. IMPRESSION: No acute cardiopulmonary disease/process.
[2023-10-17 09:36] LABS: Partial Thromboplastin Time 23.2 sec (22.0-30.0); Prothrombin Time 11.3 sec (10.0-12.5)
[2023-10-17 09:37] LABS: ALT 29 U/L (4-34); AST 34 U/L (14-36); African American GFR (CKD) 50 (>60 ml/min/1.73 sqM); Alkaline Phosphatase 87 U/L (38-126); Anion Gap 4 mmol/L; Blood Urea Nitrogen 25 mg/dL (7-17); Calcium 9.9 mg/dL (8.4-10.2); Carbon Dioxide 34 mmol/L (22-30); Chloride 103 mmol/L (98-107); Glucose 93 mg/dL (74-99); Lipase 197 U/L (23-300); Magnesium 1.9 mg/dL (1.6-2.3); Non-African American GFR(CKD) 43 (>60 ml/min/1.73 sqM); Potassium 4.1 mmol/L (3.5-5.1); Sodium 141 mmol/L (137-145)
[2023-10-17] MEDS: SODIUM CHLORIDE 0.9% 500 ML 500 ML IV STA (09:46)
[2023-10-17] MEDS: NITROGLYCERIN OINT 1 INCH/GM PACKET TOPICAL SCH (09:49)
[2023-10-17] MEDS: NITROGLYCERIN SL TABS 0.4 MG TAB SUBLINGUAL STA (10:00)
[2023-10-17] MEDS ORDERED: ONDANSETRON 4 MG/2 ML VIAL IVP PRN (10:10)
[2023-10-17] MEDS ORDERED: NALOXONE 0.4 MG/ML 1 ML VIAL IV PRN (10:10)
--- NOTE | 2023-10-17 10:21 | ED ---
General Adult HPI - General Chief complaint: Chest Pain Stated complaint: Chest pain Time Seen by Provider: 10/17/23 08:42 Source: patient, EMS, RN notes reviewed, old records reviewed Mode of arrival: EMS - History of Present Illness Initial comments: Patient is an 88-year-old female presents emergency department complaining of chest pain this morning. States it awoke her from sleep this morning. Was substernal, discomfort pain achy sensation. Did not radiate. Took 1 nitro and went back to sleep. Awoke again and had the chest pain still. Took another nitro. Pain is nearly resolved at this point. Presents for further evaluation at this time. Recently did have a cardiac catheterization which showed mild CAD with no interventions. Otherwise has no acute complaints. Has chronic left- sided deficits from old stroke. Patient presents for evaluation of the chest pain. She has a history of prior stroke on Eliquis, hypertension, CHF. Presents for further evaluation at this time. - Related Data Home Medications Medication Instructions Recorded Confirmed Albuterol Nebulized [Ventolin 2.5 mg INHALATION RT-BID 05/03/16 10/17/23 Nebulized] Atorvastatin [Lipitor] 40 mg PO HS 05/03/16 10/17/23 Spironolactone [Aldactone] 12.5 mg PO Q48H 05/03/16 10/17/23 Apixaban [Eliquis] 2.5 mg PO BID 03/22/18 10/17/23 carvediloL [Coreg] 3.125 mg PO BID 03/22/18 10/17/23 Empagliflozin [Jardiance] 10 mg PO DAILY 09/26/23 10/17/23 Fluticasone Propion/Salmeterol 2 puff INHALATION RT-BID 09/26/23 10/17/23 [Advair Hfa 115-21 Mcg Inhaler] SILVER sulfADIAZINE Cream 1 applic TOPICAL BID 09/26/23 10/17/23 [Silvadene 1% Cream] Valsartan [Diovan] 80 mg PO DAILY 09/26/23 10/17/23 Previous Rx's Medication Instructions Recorded Furosemide [Lasix] 20 mg PO BID@0900,1600 tab 10/03/23 Nitroglycerin Sl Tabs [Nitrostat] 0.4 mg SUBLINGUAL Q5M PRN tab 10/03/23 guaiFENesin [Mucinex] 600 mg PO Q12HR tab 10/03/23 Allergies Allergy/AdvReac Type Severity Reaction Status Date / Time azithromycin Allergy Rash/Hives Verified 10/17/23 10:46 Review of Systems ROS Statement: Those systems with pertinent positive or pertinent negative responses have been documented in the HPI. Review of Systems: CONST: Denies fever EYES: Denies blurry vision ENT: Denies nasal congestion C/V: Endorses chest pain that has resolved RESP: Denies shortness of breath GI: Denies abdominal pain : Denies dysuria SKIN: Denies rash. MSK: Denies joint pain. NEURO: Denies headache ROS Other: All systems not noted in ROS Statement are negative. Past Medical History Past Medical History: Atrial Fibrillation, CVA/TIA, Hypertension Additional Past Medical History / Comment(s): CVA 2016-left side affected History of Any Multi-Drug Resistant Organisms: None Reported Additional Past Surgical History / Comment(s): breast implant augmentation-1976 Past Anesthesia/Blood Transfusion Reactions: No Reported Reaction Past Psychological History: No Psychological Hx Reported Past Alcohol Use History: None Reported Past Drug Use History: None Reported General Exam - General Exam Comments Initial Comments: General: Appears in no acute distress. HEAD: Normal with no signs of head trauma. EYES: PERRLA, EOMI, conjunctiva normal, no discharge. ENT: Hearing grossly intact, normal oropharynx. RESPIRATORY: Clear breath sounds bilaterally. No wheezes, rales, or rhonchi. C/V: Regular rate and rhythm. S1 and S2 auscultated, no edema, peripheral pulses 2+ and intact throughout ABD: Abd is soft, nontender, nondistended EXT: Normal range of motion, no obvious deformity SKIN: No rashes or lesions observed on exposed skin. NEURO: Alert and oriented x 4. No obvious acute focal deficits. Chronic left- sided deficits from prior stroke Course Vital Signs 10/17/23 10/17/23 10/17/23 08:31 09:54 11:53 Temperature 97.8 F Pulse Rate 64 50 L 57 L Respiratory 18 18 18 Rate Blood Pressure 145/66 129/85 100/64 O2 Sat by Pulse 96 95 96 Oximetry 10/17/23 13:15 Temperature Pulse Rate 56 L Respiratory 18 Rate Blood Pressure 113/60 O2 Sat by Pulse 96 Oximetry Medical Decision Making - Medical Decision Making Was pt. sent in by a medical professional or institution (LESA Chanel, NEUROLOGY PHYSICIAN ASSISTANT, urgent care, hospital, or prison...) When possible be specific @ -No Did you speak to anyone other than the patient for history (EMS, parent, family, police, friend...)? What history was obtained from this source @ -No Did you review nursing and triage notes (agree or disagree)? Why? @ -I reviewed and agree with nursing and triage notes Were old charts reviewed (outside hosp., previous admission, EMS record, old EKG, old radiological studies, urgent care reports/EKG's, prison records)? Report findings @ -Recent charts reviewed including from recent cardiac cath on September 29, 2023 which showed mild CAD. Differential Diagnosis (chest pain, altered mental status, abdominal pain women, abdominal pain men, vaginal bleeding, weakness, fever, dyspnea, syncope, headache, dizziness, GI bleed, back pain, seizure, CVA, palpatations, mental health, musculoskeletal)? @ -Differential Chest Pain: Stable Angina, Unstable Angina, STEMI, NSTEMI Aortic Dissection, Pneumothorax, Musculoskeletal, Esophageal Spasm GERD, Cholecystitis, Pancreatitis, Zoster, this is not meant to be an all-inclusive list. EKG interpreted by me (3pts min.). @ -As above X-rays interpreted by me (1pt min.). @ -Chest x-ray shows no obvious acute cardiopulmonary process. CT interpreted by me (1pt min.). @ -None done U/S interpreted by me (1pt. min.). @ -None done What testing was considered but not performed or refused? (CT, X-rays, U/S, labs)? Why? @ -None What meds were considered but not given or refused? Why? @ -Considered aspirin but patient already received 324 mg of aspirin. Did you discuss the management of the patient with other professionals (professionals i.e. LESA Chanel, NEUROLOGY PHYSICIAN ASSISTANT, lab, RT, psych nurse, social welfare research worker, chief power dispatcher, teacher, surface to air weapons officer, caseworker)? Give summary @ -Discussed with the admitting physician, Dr. Drake who accepted the admission. Was smoking cessation discussed for >3mins.? @ -No Was critical care preformed (if so, how long)? @ -No Were there social determinants of health that impacted care today? How? (Homelessness, low income, unemployed, alcoholism, drug addiction, transpo rtation, low edu. Level, literacy, decrease access to med. care, shelter, rehab)? @ -No Was there de-escalation of care discussed even if they declined (Discuss DNR or withdrawal of care, Hospice)? DNR status @ -No What co-morbidities impacted this encounter? (DM, HTN, Smoking, COPD, CAD, Cancer, CVA, ARF, Chemo, Hep., AIDS, mental health diagnosis, sleep apnea, morbid obesity)? @ -None Was patient admitted / discharged? Hospital course, mention meds given and route, prescriptions, significant lab abnormalities, going to OR and other pertinent info. @ -Patient presents with chest pain. We will obtain cardiac workup. Patient is pain-free at this time. Recent cath shows mild CAD. She is in agreement this plan. Vital signs within acceptable limits. She already received aspirin. She will be given Nitropaste as nitro at home seem to improve her pain. Currently asymptomatic. EKG shows no signs of acute ischemia. Labs are remarkable for an indeterminate troponin 0.016. Major the labs unremarkable. Chest x-ray shows no obvious acute cardiopulmonary process. I reevaluated the patient. Remains asymptomatic. We will restart her home meds and admitted to observation telemetry for cardiac evaluation. She was in agreement this plan. Cardiology consulted. Spoke with the admitting physician, Dr. Drake who accepted the admission. Undiagnosed new problem with uncertain prognosis? @ -No Drug Therapy requiring intensive monitoring for toxicity (Heparin, Nitro, Insulin, Cardizem)? @ -No Were any procedures done? @ -No Diagnosis/symptom? @ -Chest pain Acute, or Chronic, or Acute on Chronic? @ -Acute Uncomplicated (without systemic symptoms) or Complicated (systemic symptoms)? @ -Complicated Side effects of treatment? @ -No Exacerbation, Progression, or Severe Exacerbation? @ -No Poses a threat to life or bodily function? How? (Chest pain, [place], [place], pneumonia, PE, COPD, DKA, ARF, appy, cholecystitis, CVA, Diverticulitis, Homicidal, Suicidal, threat to staff... and all critical care pts) @ -Yes - Lab Data Result diagrams: 10/17/23 09:06 10/17/23 09:06 Lab Results 10/17/23 10/17/23 10/17/23 Range/Units 09:06 09:06 09:06 WBC 5.1 (3.8-10.6) k/uL RBC 4.51 (3.80-5.40) m/uL Hgb 14.5 (11.4-16.0) gm/dL Hct 44.2 (34.0-46.0) % MCV 98.0 (80.0-100.0) fL MCH 32.1 (25.0-35.0) pg MCHC 32.8 (31.0-37.0) g/dL RDW 13.2 (11.5-15.5) % Plt Count 295 (150-450) k/uL MPV 7.6 Neutrophils % 58 % Lymphocytes % 26 % Monocytes % 8 % Eosinophils % 3 % Basophils % 1 % Neutrophils # 3.0 (1.3-7.7) k/uL Lymphocytes # 1.3 (1.0-4.8) k/uL Monocytes # 0.4 (0-1.0) k/uL Eosinophils # 0.2 (0-0.7) k/uL Basophils # 0.1 (0-0.2) k/uL PT 11.3 (10.0-12.5) sec INR 1.0 (<1.2) APTT 23.2 (22.0-30.0) sec Sodium 141 (137-145) mmol/L Potassium 4.1 (3.5-5.1) mmol/L Chloride 103 (98-107) mmol/L Carbon Dioxide 34 H (22-30) mmol/L Anion Gap 4 mmol/L BUN 25 H (7-17) mg/dL Creatinine 1.15 H (0.52-1.04) mg/dL Est GFR (CKD-EPI)AfAm 50 (>60 ml/min/1.73 sqM) Est GFR (CKD-EPI)NonAf 43 (>60 ml/min/1.73 sqM) Glucose 93 (74-99) mg/dL Calcium 9.9 (8.4-10.2) mg/dL Magnesium 1.9 (1.6-2.3) mg/dL Total Bilirubin 1.0 (0.2-1.3) mg/dL AST 34 (14-36) U/L ALT 29 (4-34) U/L Alkaline Phosphatase 87 (38-126) U/L Troponin I (0.000-0.034) ng/mL Total Protein 7.0 (6.3-8.2) g/dL Albumin 4.0 (3.5-5.0) g/dL Lipase 197 (23-300) U/L 10/17/23 Range/Units 09:06 WBC (3.8-10.6) k/uL RBC (3.80-5.40) m/uL Hgb (11.4-16.0) gm/dL Hct (34.0-46.0) % MCV (80.0-100.0) fL MCH (25.0-35.0) pg MCHC (31.0-37.0) g/dL RDW (11.5-15.5) % Plt Count (150-450) k/uL MPV Neutrophils % % Lymphocytes % % Monocytes % % Eosinophils % % Basophils % % Neutrophils # (1.3-7.7) k/uL Lymphocytes # (1.0-4.8) k/uL Monocytes # (0-1.0) k/uL Eosinophils # (0-0.7) k/uL Basophils # (0-0.2) k/uL PT (10.0-12.5) sec INR (<1.2) APTT (22.0-30.0) sec Sodium (137-145) mmol/L Potassium (3.5-5.1) mmol/L Chloride (98-107) mmol/L Carbon Dioxide (22-30) mmol/L Anion Gap mmol/L BUN (7-17) mg/dL Creatinine (0.52-1.04) mg/dL Est GFR (CKD-EPI)AfAm (>60 ml/min/1.73 sqM) Est GFR (CKD-EPI)NonAf (>60 ml/min/1.73 sqM) Glucose (74-99) mg/dL Calcium (8.4-10.2) mg/dL Magnesium (1.6-2.3) mg/dL Total Bilirubin (0.2-1.3) mg/dL AST (14-36) U/L ALT (4-34) U/L Alkaline Phosphatase (38-126) U/L Troponin I 0.016 (0.000-0.034) ng/mL Total Protein (6.3-8.2) g/dL Albumin (3.5-5.0) g/dL Lipase (23-300) U/L - EKG Data -: EKG Interpreted by Me EKG Comments: 12-lead Electrocardiogram Interpretation Note EKG was reviewed and interpreted by myself. 12-lead ECG performed at 0846 is interpreted by me as revealing sinus bradycardia with first-degree AV block at a rate of 56 beats per minute. [place] is normal. SD interval is 232 ms, QRS duration is 93 ms, QTc is 439 ms.. There were no ST or T wave abnormalities to suggest myocardial ischemia or injury. R wave progression across the precordium was satisfactory. By my interpretation this EKG is non-diagnostic for acute ischemia. Disposition Clinical Impression: Chest pain Disposition: ADMITTED IP TO THIS HOSP Condition: Stable Time of Disposition: 10:15
[2023-10-17] MEDS: ISOSORBIDE MONONITRATE ER 30 MG TAB.ER.24H PO SCH (14:25)
--- NOTE | 2023-10-17 14:50 | P.CRDCN ---
History of Present Illness Consult date: 10/17/23 Consult reason: chest pain History of present illness: History of present illness: This is an 88-year-old female patient of Dr. Espinosa with past medical history of chronic permanent atrial fibrillation on Eliquis 2.5 mg tablets, history of CVA with left-sided weakness, hypertension, dyslipidemia, peripheral vascular disease, mitral valve regurgitation, nonischemic cardiomyopathy, chronic kidney disease. Patient had a recent hospitalization in September at which time she underwent cardiac catheterization following an abnormal Lexiscan Cardiolite stress test. Cardiac catheterization revealed calcified thoracic aorta, mild triple-vessel disease, right dominance, normal LVEDP. Recommendations were for medical management. Patient gives history that she woke at 5 AM this morning with left-sided chest pain that woke her from a sleep. She denies having any shortness of breath with it. She has not had this sensation before. She did have 1 nitroglycerin that took the pain away in approximately 10 to 15 minutes and lasted for about 1 and half hours. The pain did come back and she took a second nitro glycerin. She has no pain now. She has not had any discomfort in the past prior to this episode this morning. Patient is seen in the emergency center waiting for a bed on the observation unit. EKG atrial fibrillation Chest x-ray: No acute findings Laboratory studies: CBC, INR within normal limits. BUN 25 creatinine 1.15. Troponin negative x 2. Magnesium 1.9. Potassium 4.1. Home cardiac medications: Eliquis 2.5 mg twice daily, atorvastatin 40 mg at bedtime, Coreg 3.125 mg twice daily, Jardiance 10 mg daily, Lasix 20 mg twice daily, Nitrostat as needed, Aldactone 12.5 mg every 48 hours, valsartan 80 mg daily. Echocardiogram performed on 09/27/2023 revealed EF of 30 to 35% with septal hypokinesis, severe. Prominent posterior pericardial stripe. Review Of Systems: At the time of my exam: CONSTITUTIONAL: Denies fever or chills. HEENT: Denies blurred vision, vision changes, or eye pain. Denies hemoptysis CARDIOVASCULAR: Denies chest pain. Denies orthopnea. Denies PND. Denies palpitations RESPIRATORY: Denies shortness of breath. GASTROINTESTINAL: Denies abdominal pain. Denies nausea or vomiting. HEMATOLOGIC: Denies bleeding disorders. GENITOURINARY: Denies any blood in urine. SKIN: Denies pruitis. Denies rash. Physical examination: Gen: This is an 88-year-old female in no acute distress VS: reviewed HEENT: Head is atraumatic, normocephalic. Pupils equal, round. Sclerae is anicteric. NECK: Supple. No JVD. LUNGS: Clear to auscultation. No wheezes or rhonchi. No intercostal retractions. HEART: Irregular rate and rhythm. 2/6 systolic at the base, 2/6 holosystolic murmur at the apex. No chest wall tenderness. ABDOMEN: Soft No tenderness. EXTREMITIES: No pedal edema. No calf tenderness. NEUROLOGICAL: Patient is awake, alert and oriented x3. Assessment: Chest pain, acute coronary syndrome ruled out Recent cardiac catheterization revealed no significant obstructive coronary artery disease Chronic permanent atrial fibrillation History of CVA with residual left-sided weakness Hypertension Dyslipidemia Peripheral vascular disease Nonischemic cardiomyopathy Chronic kidney disease Plan: Resume patient's home cardiac medications Start patient on Imdur 30 mg daily No further cardiac workup at this time. Patient is cleared for discharge and may follow-up in the office in 1 week. Thank you kindly for this consultation. Nurse practitioner note has been reviewed, I agree with documented findings and plan of care. Patient was seen and examined. Past Medical History Past Medical History: Atrial Fibrillation, CVA/TIA, Hypertension Additional Past Medical History / Comment(s): CVA 2016-left side affected History of Any Multi-Drug Resistant Organisms: None Reported Additional Past Surgical History / Comment(s): breast implant augmentation-1976 Past Anesthesia/Blood Transfusion Reactions: No Reported Reaction Past Psychological History: No Psychological Hx Reported Past Alcohol Use History: None Reported Past Drug Use History: None Reported Medications and Allergies Home Medications Medication Instructions Recorded Confirmed Type Albuterol Nebulized [Ventolin 2.5 mg INHALATION RT-BID 05/03/16 10/17/23 History Nebulized] Atorvastatin [Lipitor] 40 mg PO HS 05/03/16 10/17/23 History Spironolactone [Aldactone] 12.5 mg PO Q48H 05/03/16 10/17/23 History Apixaban [Eliquis] 2.5 mg PO BID 03/22/18 10/17/23 History carvediloL [Coreg] 3.125 mg PO BID 03/22/18 10/17/23 History Empagliflozin [Jardiance] 10 mg PO DAILY 09/26/23 10/17/23 History Fluticasone Propion/Salmeterol 2 puff INHALATION RT-BID 09/26/23 10/17/23 History [Advair Hfa 115-21 Mcg Inhaler] SILVER sulfADIAZINE Cream 1 applic TOPICAL BID 09/26/23 10/17/23 History [Silvadene 1% Cream] Valsartan [Diovan] 80 mg PO DAILY 09/26/23 10/17/23 History Furosemide [Lasix] 20 mg PO BID@0900,1600 tab 10/03/23 10/17/23 Rx Nitroglycerin Sl Tabs [Nitrostat] 0.4 mg SUBLINGUAL Q5M PRN tab 10/03/23 10/17/23 Rx guaiFENesin [Mucinex] 600 mg PO Q12HR tab 10/03/23 10/17/23 Rx Allergies Allergy/AdvReac Type Severity Reaction Status Date / Time azithromycin Allergy Rash/Hives Verified 10/17/23 10:46 Physical Exam Vitals: Vital Signs Temp Pulse Resp BP Pulse Ox 10/17/23 13:15 56 L 18 113/60 96 10/17/23 11:53 57 L 18 100/64 96 10/17/23 09:54 50 L 18 129/85 95 10/17/23 08:31 97.8 F 64 18 145/66 96 Intake and Output 10/16/23 10/17/23 10/17/23 22:59 06:59 14:59 Other: Weight 71.214 kg Results 10/17/23 09:06 10/17/23 09:06 Cardiac Enzymes 10/17/23 10/17/23 10/17/23 Range/Units 09:06 09:06 12:19 AST 34 (14-36) U/L Troponin I 0.016 0.016 (0.000-0.034) ng/mL Coagulation 10/17/23 Range/Units 09:06 PT 11.3 (10.0-12.5) sec APTT 23.2 (22.0-30.0) sec CBC 10/17/23 Range/Units 09:06 WBC 5.1 (3.8-10.6) k/uL RBC 4.51 (3.80-5.40) m/uL Hgb 14.5 (11.4-16.0) gm/dL Hct 44.2 (34.0-46.0) % Plt Count 295 (150-450) k/uL Comprehensive Metabolic Panel 10/17/23 Range/Units 09:06 Sodium 141 (137-145) mmol/L Potassium 4.1 (3.5-5.1) mmol/L Chloride 103 (98-107) mmol/L Carbon Dioxide 34 H (22-30) mmol/L BUN 25 H (7-17) mg/dL Creatinine 1.15 H (0.52-1.04) mg/dL Glucose 93 (74-99) mg/dL Calcium 9.9 (8.4-10.2) mg/dL AST 34 (14-36) U/L ALT 29 (4-34) U/L Alkaline Phosphatase 87 (38-126) U/L Total Protein 7.0 (6.3-8.2) g/dL Albumin 4.0 (3.5-5.0) g/dL Current Medications Generic Name Dose Route Start Last Admin Trade Name Freq PRN Reason Stop Dose Admin Albuterol Sulfate 2.5 mg 10/17/23 20:00 Albuterol Nebulized 2.5 Mg/3 Ml INHALATION RT-BID [facility] Apixaban 2.5 mg 10/17/23 21:00 Apixaban 2.5 Mg Tablet PO BID [facility] Protocol Atorvastatin Calcium 40 mg 10/17/23 21:00 Atorvastatin 40 Mg Tab PO HS [facility] Budesonide/Formoterol Fumarate 2 puff 10/17/23 20:00 Symbicort 160-4.5 Mcg Inhaler INHALATION RT-BID [facility] Carvedilol 3.125 mg 10/17/23 17:30 Carvedilol 3.125 Mg Tab PO AC-BID [facility] Dapagliflozin 5 mg 10/18/23 09:00 Dapagliflozin Propanediol 5 Mg Tablet PO DAILY [facility] Furosemide 20 mg 10/17/23 16:00 Furosemide 20 Mg Tab PO BID@0900,1600 [facility] Guaifenesin 600 mg 10/17/23 21:00 Guaifenesin 600 Mg Tablet.Er PO Q12HR [facility] Naloxone HCl 0.2 mg 10/17/23 10:10 Naloxone 0.4 Mg/Ml 1 Ml Vial IV Q2M PRN Opioid Reversal Nitroglycerin 0.5 inch 10/17/23 09:30 10/17/23 09:49 Nitroglycerin Oint 1 Inch/Gm Packet TOPICAL 0.5 inch Q8HR PADMAJA Administration Ondansetron HCl 4 mg 10/17/23 10:10 Ondansetron 4 Mg/2 Ml Vial IVP Q8HR PRN Nausea And Vomiting Spironolactone 12.5 mg 10/18/23 09:00 Spironolactone 25 Mg Tab PO Q48H PADMAJA Valsartan 80 mg 10/18/23 09:00 Valsartan 80 Mg Tab PO DAILY [facility] Intake and Output 10/16/23 10/17/23 10/17/23 22:59 06:59 14:59 Other: Weight 71.214 kg Patient Weight 10/18/23 06:59 Weight 71.214 kg 10/17/23 09:06 10/17/23 09:06
[2023-10-17] MEDS: FUROSEMIDE 20 MG TAB PO SCH (15:56)
[2023-10-17] MEDS: carvediloL 3.125 MG TAB PO SCH (17:54)
[2023-10-17] MEDS: SYMBICORT 160-4.5 MCG INHALER INHALATION SCH (19:45)
[2023-10-17] MEDS: ALBUTEROL NEBULIZED 2.5 MG/3 ML INHALATION SCH (19:45)
--- NOTE | 2023-10-17 21:00 | HP ---
HISTORY AND PHYSICAL CHIEF COMPLAINT: Chest pain. HISTORY OF PRESENT ILLNESS: This is an 88-year-old woman with a past medical history of atrial fibrillation, CVA, TIA, hypertension, was recently admitted to [facility], evaluated after an abnormal stress test. Cardiac catheterization showed mild triple-vessel disease with 20% to 30% stenosis. The patient went home and this morning at 5 o'clock, the patient had chest pain, which was felt in the anterior part, which was relieved by nitroglycerin. The patient had recurrence of pain, patient came to [facility]. The evaluation showed troponin 0.016 and 0.016. EKG showed atrial fibrillation with some ST-T changes. There is no history of any fever, rigors, or chills at this time. PAST MEDICAL HISTORY: History of atrial fibrillation, CVA, TIA, recent cardiac catheterization as mentioned earlier. Rest of the history and rest of the chart is also reviewed, history of stroke on the left side. Reviewed include stroke with contractures HOME MEDICATIONS: thank you home medications are reviewed include dye 1 dose and rest of medications reviewed. ALLERGIES: Zithromax. FAMILY HISTORY: No history of heart disease or strokes in the family. SOCIAL HISTORY: No history of smoking or alcohol. REVIEW OF SYSTEMS: A 14-point review is negative except as mentioned earlier. PHYSICAL EXAMINATION: VITAL SIGNS: Pulse is 56, blood pressure 130/60, respirations 18. HEENT: Conjunctivae normal. NECK: No jugular venous distention. CARDIOVASCULAR: S1, S2. RESPIRATIONS: Diminished at the bases. ABDOMEN: Soft, nontender. LEGS: No edema. NERVOUS SYSTEM: Significant weakness and contractures on the left side present. SKIN: No ulcer, rash, bleeding. JOINTS: No active deforming arthropathy. LABORATORY DATA: Creatinine 1.15. ASSESSMENT: 1. Chest pain, possible unstable angina. 2. History of recent cardiac catheterization and mild 20% to 30% triple-vessel coronary artery disease. 3. Elevated creatinine with chronic kidney disease, stage III. 4. Old stroke, left-sided with contractures and gait dysfunction. 5. History of atrial fibrillation, chronic. 6. Hypertension. RECOMMENDATIONS AND DISCUSSION: This 88-year-old woman presented with multiple medical issues, we will monitor the patient closely. Continue the current medications, continue symptomatic treatment. Otherwise, I would recommend continue with added nitroglycerin to the current and closely follow with Cardiology. Guarded prognosis because of multiple complex medical conditions. See orders for details. MMODL / IJN: [id number] /
[2023-10-17] MEDS: ATORVASTATIN 40 MG TAB PO SCH (21:03)
[2023-10-17] MEDS: APIXABAN 2.5 MG TABLET PO SCH (21:03)
[2023-10-17] MEDS: guaiFENesin 600 MG TABLET.ER PO SCH (21:03)
[2023-10-18] MEDS: SPIRONOLACTONE 25 MG TAB PO SCH (08:53)
[2023-10-18] MEDS: DAPAGLIFLOZIN PROPANEDIOL 5 MG TABLET PO SCH (08:53)
[2023-10-18] MEDS: VALSARTAN 80 MG TAB PO SCH (08:54)
[2023-10-18 08:57] VITALS: BP 145/73; PULSE 50; RESP 16; TEMP 98
--- NOTE | 2023-10-18 10:18 | P.PN ---
Subjective Progress Note Date: 10/18/23 Consult reason: chest pain History of present illness: History of present illness: This is an 88-year-old female patient of Dr. Espinosa with past medical history of chronic permanent atrial fibrillation on Eliquis 2.5 mg tablets, history of CVA with left-sided weakness, hypertension, dyslipidemia, peripheral vascular disease, mitral valve regurgitation, nonischemic cardiomyopathy, chronic kidney disease. Patient had a recent hospitalization in September at which time she underwent cardiac catheterization following an abnormal Lexiscan Cardiolite stress test. Cardiac catheterization revealed calcified thoracic aorta, mild triple-vessel disease, right dominance, normal LVEDP. Recommendations were for medical management. Patient gives history that she woke at 5 AM this morning with left-sided chest pain that woke her from a sleep. She denies having any shortness of breath with it. She has not had this sensation before. She did have 1 nitroglycerin that took the pain away in approximately 10 to 15 minutes and lasted for about 1 and half hours. The pain did come back and she took a second nitro glycerin. She has no pain now. She has not had any discomfort in the past prior to this episode this morning. Patient is seen in the emergency center waiting for a bed on the observation unit. EKG atrial fibrillation Chest x-ray: No acute findings Laboratory studies: CBC, INR within normal limits. BUN 25 creatinine 1.15. Troponin negative x 2. Magnesium 1.9. Potassium 4.1. Home cardiac medications: Eliquis 2.5 mg twice daily, atorvastatin 40 mg at bedtime, Coreg 3.125 mg twice daily, Jardiance 10 mg daily, Lasix 20 mg twice daily, Nitrostat as needed, Aldactone 12.5 mg every 48 hours, valsartan 80 mg daily. Echocardiogram performed on 09/27/2023 revealed EF of 30 to 35% with septal hypokinesis, severe. Prominent posterior pericardial stripe. 10/17 Patient is seen today in follow-up on the observation unit. She denies having any chest pain. She states she did not sleep well because she was in the emergency center until this morning but otherwise feels good. Patient was started on Imdur yesterday. Blood pressure 147/73, heart rate between 47 and 70, pulse ox 96% on room air. Third troponin came back negative. Physical examination: Gen: This is an 88-year-old female in no acute distress VS: reviewed HEENT: Head is atraumatic, normocephalic. Pupils equal, round. Sclerae is anicteric. NECK: Supple. No JVD. LUNGS: Clear to auscultation. No wheezes or rhonchi. No intercostal retractions. HEART: Irregular rate and rhythm. 2/6 systolic at the base, 2/6 holosystolic murmur at the apex. No chest wall tenderness. ABDOMEN: Soft No tenderness. EXTREMITIES: No pedal edema. No calf tenderness. NEUROLOGICAL: Patient is awake, alert and oriented x3. Assessment: Chest pain, acute coronary syndrome ruled out Recent cardiac catheterization revealed no significant obstructive coronary artery disease Chronic permanent atrial fibrillation History of CVA with residual left-sided weakness Hypertension Dyslipidemia Peripheral vascular disease Nonischemic cardiomyopathy Chronic kidney disease Plan: Continue patient's home cardiac medications Continue patient on Imdur 30 mg daily No further cardiac workup at this time. Patient is cleared for discharge and may follow-up in the office with Dr. Espinosa in 1 week. Nurse practitioner note has been reviewed, I agree with documented findings and plan of care. Patient was seen and examined. Objective - Vital Signs Vital signs: Vital Signs Temp 97.8 F 10/17/23 08:31 Pulse 66 10/18/23 05:00 Resp 15 10/18/23 05:00 BP 121/61 10/18/23 05:00 Pulse Ox 95 10/18/23 05:00 FiO2 Intake & Output 10/17/23 10/18/23 10/18/23 18:59 06:59 18:59 Weight 71.214 kg - Labs CBC & Chem 7: 10/17/23 09:06 10/17/23 09:06 Labs: Abnormal Lab Results - Last 24 Hours (Table) 10/17/23 Range/Units 09:06 Carbon Dioxide 34 H (22-30) mmol/L BUN 25 H (7-17) mg/dL Creatinine 1.15 H (0.52-1.04) mg/dL
[2023-10-18 10:28] LABS: Basophils # (A) 0.07 X 10*3/uL (0.00-0.10); Basophils % (A) 1.2 %; Eosinophils # (A) 0.17 X 10*3/uL (0.04-0.35); Eosinophils % (A) 2.8 %; HCT 39.9 % (37.2-46.3); HGB 12.8 g/dL (12.0-15.0); Lymphocytes # (A) 1.73 X 10*3/uL (0.90-5.00); Lymphocytes % (A) 28.5 %; MCH 31.8 pg (27.0-32.0); MCHC 32.1 g/dL (32.0-37.0); MCV 99.3 FL (80.0-97.0); Mean Platelet Volume 10.1 FL (9.5-12.2); Monocytes # (A) 0.68 X 10*3/uL (0.20-1.00); Monocytes % (A) 11.2 %; NRBC Per 100 WBC 0 X 10*3/uL (0.00-0.01); Neutrophils # (A) 3.39 X 10*3/uL (1.80-7.70); Neutrophils % (A) 55.8 %; Platelet Count 236 X 10*3/uL (140-440); RBC 4.02 X 10*6/uL (4.10-5.20); WBC 6.07 X 10*3/uL (4.50-10.00)
[2023-10-18 10:35] LABS: ALT 26 U/L (8-44); AST 30 U/L (13-35); Albumin/Globulin Ratio 1.74 Ratio (1.60-3.17); Alkaline Phosphatase 89 U/L (41-126); BUN/Creat Ratio 15.75 Ratio (12.00-20.00); Blood Urea Nitrogen 18.9 mg/dL (9.0-27.0); Calcium 9.9 mg/dL (8.7-10.3); Carbon Dioxide 26.8 mmol/L (21.6-31.8); Chloride 104 mmol/L (96-109); Globulin 2.3 g/dL (1.6-3.3); Glucose 90 mg/dL (70-110); Potassium 4.1 mmol/L (3.5-5.5); Sodium 144 mmol/L (135-145); Total Bilirubin 0.8 mg/dL (0.3-1.2); Total Protein 6.3 g/dL (6.2-8.2)
== END 2023-10-18 14:36 | disposition home or self-care (01) ==
LOC: EC 08:25 → 6NMEDSUR 10:10
PROVIDERS: ADMIT Internal Medicine; ATTEND Internal Medicine
DX: R07.89 Other chest pain (principal); I25.10 Atherosclerotic heart disease of native coronary artery without angina pectoris; Z86.73 Personal history of transient ischemic attack (TIA), and cerebral infarction without residual deficits; I12.9 Hypertensive chronic kidney disease with stage 1 through stage 4 chronic kidney disease, or unspecified chronic kidney disease; N18.30 Chronic kidney disease, stage 3 unspecified; I48.20 Chronic atrial fibrillation, unspecified; Z79.899 Other long term (current) drug therapy; Z79.84 Long term (current) use of oral hypoglycemic drugs; Z79.01 Long term (current) use of anticoagulants
CPT/HCPCS: 99285; 36415; 94640 ×4; 93005; 80053 ×2; 83690; 83735; 84484; 85025 ×2; 85610; 85730; 71046; G0378 ×2